=== PATIENT | female | born 1940 | race Caucasian/White ===

== ENCOUNTER → 2017-07-16 14:21 | Outpatient (CLI) | payer MEDICARE, SELFPAY | PROVIDERS: Family Provider Internal Medicine; PCP Internal Medicine; Visit Provider Physician Assistant | DX: R30.0 Dysuria (principal) | CPT/HCPCS: 87086 ==

== ENCOUNTER 2017-07-24 15:51 | Emergency (ER) | payer MEDICARE, SELFPAY ==
[2017-07-24 17:14] VITALS: BP 146/86; PULSE 101; RESP 18; TEMP 36.9; O2SAT 95; BMI 28.8
[2017-07-24 17:25] LABS: RBC Urine None Seen (0-5/HPF)
[2017-07-24 17:27] LABS: Appearance Urine UA CLEAR; Bilirubin Urine UA NEGATIVE (NEGATIVE); Glucose Urine UA TRACE g/dL (Negative); Ketones Urine UA NEGATIVE (NEGATIVE); Leukocyte Esterase Urine UA 2+ (NEGATIVE); Nitrite Urine UA POSITIVE (Negative); Occult Blood Urine UA TRACE-INTACT (Negative); Protein Urine UA TRACE (Negative)
[2017-07-24 17:43] LABS: Bacteria Urine Occasional (0-1); Color Urine UA ORANGE; Culture Indicated Urine Specimen Cultured; Squamous Epithelial Cell Urine 1-5 /HPF; Transitional Epi Cells Urine 1-5/HPF (0-5/HPF); WBC Urine 10-30/HPF (0-5/HPF)
[2017-07-24 18:26] VITALS: BP 149/77; PULSE 93; RESP 15; O2SAT 96
--- NOTE | 2017-07-24 18:31 | ED.FEMALEGU ---
HPI - Female Genitourinary General Chief complaint: Urogenital-Female Stated complaint: BLADDER PAIN Time Seen by Provider: 07/24/17 18:18 Source: patient and family Mode of arrival: ambulatory Limitations: no limitations History of Present Illness HPI Narrative: Patient presents to the emergency department today with a chief complaint of ongoing urinary symptoms including dysuria, frequency and urgency and some low right back pain over the past few days despite being treated with Macrobid as prescribed at a local walk-in. She denies fever or chills MD Complaint: dysuria and UTI Onset (ago): day(s) Location: suprapubic Female Urogenital Radiation: R Flank Severity: mild Quality: Aching and Burning Duration: constant Relieving factors: none Exacerbating factors: none Urinary symptoms: Difficulty Urinating, Dysuria, Flank Pain, Foul Smelling Urine, Frequency and Urgency Related Data Home Medications Medication Instructions Recorded Confirmed BIOTIN/CA PANTOTHENATE/FOLIC2 (B50) 1 tab PO #0 06/17/10 07/16/17 conjugated estrogens [Premarin] 0.625 mg VG #0 06/17/10 07/16/17 hydrochlorothiazide 25 mg PO QDAY #0 tab 10/08/15 07/16/17 ranitidine HCl 150 mg PO BID #0 tab 10/08/15 07/16/17 tolterodine [Detrol] 2 mg PO #90 10/08/15 07/16/17 Previous Rx's Medication Instructions Recorded atorvastatin [Lipitor] 10 mg PO QDAY #90 11/03/10 oxycodone-acetaminophen 0 tab PO Q3HP PRN #10 tab 11/06/15 cephalexin [Keflex] 500 mg PO QID 10 Days #40 cap 07/24/17 ondansetron [Zofran ODT] 4 mg PO Q6H PRN #14 tab 07/24/17 Allergies Allergy/AdvReac Type Severity Reaction Status Date / Time olmesartan Allergy Severe TONGUE Unverified 07/16/17 14:02 SWELLING polyethylene glycol Allergy Severe ABD PAIN Unverified 07/16/17 14:02 [POLYETHYLENE GLYCOL] hydrochlorothiazide Allergy Mild ANKLES Unverified 07/16/17 14:02 SWELL Penicillins Allergy Mild RASH Unverified 07/16/17 14:02 aspirin Allergy Unknown Unverified 07/16/17 14:02 dexamethasone Allergy Unknown Unverified 07/16/17 14:02 pantoprazole [From PROTONIX] Allergy Unknown Unverified 07/16/17 14:02 Sulfa (Sulfonamide Allergy Unknown Unverified 07/16/17 14:02 Antibiotics) celecoxib AdvReac Mild GI UPSET Unverified 07/16/17 14:02 ciprofloxacin AdvReac Mild NAUSEA Unverified 07/16/17 14:02 cyclobenzaprine AdvReac Mild DECREASED Unverified 07/16/17 14:02 BP hydrocodone AdvReac Mild CONSTIPATIO Unverified 07/16/17 14:02 N ibuprofen AdvReac Mild GI UPSET Unverified 07/16/17 14:02 propylene glycol AdvReac Mild GI UPSET Unverified 07/16/17 14:02 Review of Systems Review of Systems All systems reviewed & are unremarkable except as noted in HPI and below Constitutional Denies chills, Denies fever(s), Denies lethargy and Denies weakness Eyes Denies change in vision, Denies eye discharge, Denies irritation and Denies loss of vision ENT Ears, Nose, Mouth, and Throat: Denies change in voice, Denies neck pain and Denies sore throat Cardiovascular Denies chest pain, Denies irregular heart rhythm, Denies lightheadedness, Denies palpitations, Denies dyspnea, Denies dyspnea on exertion and Denies orthopnea Respiratory Denies cough, Denies dyspnea, Denies dyspnea on exertion and Denies wheezing Gastrointestinal Gastrointestinal: Denies abdominal pain, Denies change in bowel habits, Denies diarrhea, Denies nausea and Denies vomiting Genitourinary Denies hematuria, Reports dysuria, Reports pelvic pain, Reports flank pain, Reports urinary hesitancy and Reports urinary urgency Musculoskeletal Denies neck pain Integumentary/Breasts Denies pruritus, Denies erythema, Denies rash and Denies wounds Neurologic Denies confusion, Denies loss of vision and Denies weakness Psychiatric Denies anxiety, Denies confusion, Denies depression, Denies homicidal ideation and Denies suicidal ideation Endocrine Denies palpitations Hematologic/Lymphatic Denies easy bruising Allergic/Immunologic Denies wheezing PFSH Surgical History Status post laminectomy Status post surgery (11/06/15) Status post tubal ligation Social History Smoking Status: Never smoker Exam Initial Vital Signs Initial Vital Signs: Vital Signs Temperature 98.5 F 07/24/17 17:14 Pulse Rate 101 H 07/24/17 17:14 Respiratory Rate 18 07/24/17 17:14 Blood Pressure 146/86 H 07/24/17 17:14 Pulse Oximetry 95 07/24/17 17:14 Const General: cooperative, well developed and in distress Nutritional Appearance: well nourished Orientation: alert, awake, oriented x3 and not confused [facility] Head: normocephalic and atraumatic Ears: external ears normal and TM's normal bilaterally Nose: external nose normal and No nasal discharge Face and sinus: sinuses nontender, face symmetric, no sinus tenderness and No dry mucous membranes Mouth: oral mucosae normal and moist mucous membranes Teeth and gingiva: dentition normal Throat: tonsils normal and uvula midline Resp Effort & Inspection: normal respiratory effort, able to speak in complete sentences, no respiratory distress and no use of accessory muscles Auscultation: clear to auscultation bilaterally, no rales, no rhonchi and no wheezes GI Inspection: normal to inspection Palpation: soft Percussion: normal to percussion Other: mild R flank pain Skin General: no rashes or lesions noted, No jaundice and No petechiae Neuro General: alert, oriented x3, gait normal and no focal motor deficits Speech: speech normal Course Orders Ordered: Discontinued Medications Cephalexin HCl (Keflex) 500 mg PO NOW ONE Stop: 07/24/17 19:02 Last Admin: 07/24/17 19:15 Dose: 500 mg Ondansetron HCl (Zofran Odt Prepack) 1 bottle MISC SEEINSTR ONE Stop: 07/24/17 19:02 Last Admin: 07/24/17 19:16 Dose: 1 bottle Vital Signs - 8 hr 07/24/17 18:26 Pulse Rate 93 H Respiratory Rate 15 Blood Pressure [Left Arm] 149/77 H Pulse Oximetry 96 MDM - Female Genitourinary Lab Data Lab Results 07/24/17 Range/Units 17:04 Urine Color [place] Urine Appearance Clear Urine pH 7.0 (4.5-8.0) Ur Specific [place] 1.010 (1.000-1.035) Urine Protein Trace H (Negative) Urine Glucose (UA) Trace H (Negative) g/dL Urine Ketones Negative (NEGATIVE) Urine Occult Blood Trace-intact (Negative) Urine Nitrate Positive H (Negative) Urine Bilirubin Negative (NEGATIVE) Urine Urobilinogen 1.0 (0.2) E.U./dL Ur Leukocyte Esterase 2+ H (NEGATIVE) Urine RBC None seen (0-5/HPF) Urine WBC 10-30/hpf H (0-5/HPF) Ur Squamous Epith Cells 1-5 /hpf Ur Transition Epith Cell 1-5/hpf (0-5/HPF) Urine Bacteria Occasional (0-1) (None) Ur Culture Indicated? Specimen cultured Micro UA Comment Not Reportable Discharge Plan Departure Patient Disposition: Home, Self-Care Clinical Impression: Acute pyelonephritis Discharge Date/Time: 07/24/17 19:15 Interventions: ED Discharge Assessment Last Done: 07/24/17 19:30 Instructions: DI for Kidney Infection Activity Restrictions/Additional Instructions: *You have been diagnosed with [ kidney infection ] *What to do: *Take medications as directed, your prescriptions have been electronically transmitted to [facility] in [place] is at your request *Follow up with your primary care provider in 2-3 days *Return to ER if you should have any new, worsening or concerning symptoms Prescriptions: New cephalexin [Keflex] 500 mg capsule 500 mg PO QID 10 Days Qty: 40 RF: 0 ondansetron [Zofran ODT] 4 mg tablet,disintegrating 4 mg PO Q6H PRN (Reason: nausea and vomiting) Qty: 14 RF: 0 No Action BIOTIN/CA PANTOTHENATE/FOLIC2 (B50) 1 tab PO Qty: 0 RF: 0 conjugated estrogens [Premarin] 0.625 MG/GM cream 0.625 mg VG Qty: 0 RF: 0 atorvastatin [Lipitor] 10 MG tablet 10 mg PO QDAY Qty: 90 RF: 4 ranitidine HCl 150 MG tablet 150 mg PO BID Qty: 0 RF: 0 tolterodine [Detrol] 2 MG tablet 2 mg PO Qty: 90 RF: 3 hydrochlorothiazide 25 MG tablet 25 mg PO QDAY Qty: 0 RF: 0 oxycodone-acetaminophen 5 MG/325 MG tablet PO Q3HP PRNQty: 10 RF: 0
--- NOTE | 2017-07-24 18:47 | PC.NURSE ---
urinary urgency increasing over several days, reports mult previous episodes of same r/t recurrent UTI, denies pain or discomfort at time of exam, denies dizziness/weakness/fever/nausea/vomiting/diarrhea/cough/cp/soa or other sx
[2017-07-24] MEDS: cephALEXin 250 MG CAPSULE 500 MG PO (19:15)
[2017-07-24] MEDS: ONDANSETRON 4 MG ODT PREPACK 1 BOTTLE MISC (19:16)
== END 2017-07-24 19:15 | disposition home or self-care (01) ==
PROVIDERS: Emergency Medicine; Emergency Provider Emergency Medicine; Family Provider Internal Medicine; PCP Internal Medicine
DX: N10 Acute pyelonephritis (principal)
CPT/HCPCS: 81001; 87086; 99282; 99283

== ENCOUNTER → 2017-07-27 10:15 | Outpatient (CLI) | payer MEDICARE, SELFPAY ==
--- NOTE | 2017-07-27 | DI.MG.S_ITS ---
BILATERAL DIGITAL SCREENING MAMMOGRAM 3D/2D WITH CAD: 07/27/2017 CLINICAL: Routine screening. Comparison is made to exams dated: 07/01/2016 mammogram, 06/30/2015 mammogram, and 06/26/2014 mammogram - [facility]. There are scattered fibroglandular elements in both breasts. Current study was also evaluated with a Computer Aided Detection (CAD) system. No significant masses, calcifications, or other findings are seen in either breast. There has been no significant interval change. IMPRESSION: NEGATIVE There is no mammographic evidence of malignancy. A 1 year screening mammogram is recommended. This exam was interpreted at Station ID: [id number]. NOTE: For mammograms, a report in lay terms will be sent to the patient. Approximately 15% of breast malignancies will not be visualized mammographically. In the management of a palpable breast mass, a negative mammogram must not discourage biopsy of a clinically suspicious lesion. Electronically Signed By: Juan gloria/kadi:07/27/2017 12:54:19 letter sent: Normal Exam ACR BI-RADS Category 1: Negative 3341F
== END ==
PROVIDERS: Family Provider Internal Medicine; PCP Internal Medicine; Visit Provider Internal Medicine
DX: Z12.31 Encounter for screening mammogram for malignant neoplasm of breast (principal)
CPT/HCPCS: 77063; 77067

== ENCOUNTER 2017-07-29 16:53 | Emergency (ER) | payer MEDICARE, SELFPAY ==
[2017-07-29 17:08] VITALS: BP 157/84; PULSE 121; RESP 17; TEMP 36.7; O2SAT 95
--- NOTE | 2017-07-29 17:09 | ED_ITS ---
HPI - Abdominal Pain <Stephani Fonseca PA-C - Last Filed: 07/29/17 19:51> General Chief Complaint: Abdominal Pain Stated Complaint: SEVERE CONSTIPATION Time Seen by Provider: 07/29/17 17:09 Source: family and old records reviewed Mode of arrival: ambulatory Limitations: no limitations History of Present Illness HPI narrative: This 76 female with history of memory impairment comes in due to constipation today. Her is her caregiver and historian as she is unable to provide much history. states that she has had no bowel movement for at least 2 days and has been complaining of a painful, blocked sensation. He states that she usually takes 1 senna at night for chronic constipation, however he has given her senna, MiraLax, prune juice, mineral oil , Ex-Lax, and magnesium citrate over the last day or so and she has not been able to have a bowel movement. She states that she does not have abdominal pain currently. She does not think she has excess bowel gas. She has not had any nausea or vomiting since her kidney infection was treated a few days ago open (that seems to be getting better close). She has not had any new fever. She denies any chest pain, dyspnea, or other new complaints on systems review. Her states that this seems to be her only new problem, at baseline mentation. He states that she has needed to come in for enemas in the past Related Data Home Medications Medication Instructions Recorded Confirmed BIOTIN/CA PANTOTHENATE/FOLIC2 (B50) 1 tab PO #0 06/17/10 07/16/17 conjugated estrogens [Premarin] 0.625 mg VG #0 06/17/10 07/16/17 hydrochlorothiazide 25 mg PO QDAY #0 tab 10/08/15 07/16/17 ranitidine HCl 150 mg PO BID #0 tab 10/08/15 07/16/17 tolterodine [Detrol] 2 mg PO #90 10/08/15 07/16/17 Previous Rx's Medication Instructions Recorded atorvastatin [Lipitor] 10 mg PO QDAY #90 11/03/10 oxycodone-acetaminophen 0 tab PO Q3HP PRN #10 tab 11/06/15 cephalexin [Keflex] 500 mg PO QID 10 Days #40 cap 07/24/17 ondansetron [Zofran ODT] 4 mg PO Q6H PRN #14 tab 07/24/17 Allergies Allergy/AdvReac Type Severity Reaction Status Date / Time olmesartan Allergy Severe TONGUE Verified 07/29/17 17:08 SWELLING polyethylene glycol Allergy Severe ABD PAIN Verified 07/29/17 17:08 [POLYETHYLENE GLYCOL] hydrochlorothiazide Allergy Mild ANKLES Verified 07/29/17 17:08 SWELL Penicillins Allergy Mild RASH Verified 07/29/17 17:08 aspirin Allergy Unknown Verified 07/29/17 17:08 dexamethasone Allergy Unknown Verified 07/29/17 17:08 pantoprazole [From PROTONIX] Allergy Unknown Verified 07/29/17 17:08 Sulfa (Sulfonamide Allergy Unknown Verified 07/29/17 17:08 Antibiotics) celecoxib AdvReac Mild GI UPSET Verified 07/29/17 17:08 ciprofloxacin AdvReac Mild NAUSEA Verified 07/29/17 17:08 cyclobenzaprine AdvReac Mild DECREASED Verified 07/29/17 17:08 BP hydrocodone AdvReac Mild CONSTIPATIO Verified 07/29/17 17:08 N ibuprofen AdvReac Mild GI UPSET Verified 07/29/17 17:08 propylene glycol AdvReac Mild GI UPSET Verified 07/29/17 17:08 Review of Systems <Stephani Fonseca PA-C - Last Filed: 07/29/17 19:51> Review of Systems All systems reviewed & are unremarkable except as noted in HPI and below PFSH <Stephani Fonseca PA-C - Last Filed: 07/29/17 19:51> Comment: very rare ETOH Exam <GHISLAINE Frey Last Filed: 07/29/17 19:51> Initial Vital Signs Initial Vital Signs: Vital Signs Temperature 98.0 F 07/29/17 17:08 Pulse Rate 121 H 07/29/17 17:08 Respiratory Rate 17 07/29/17 17:08 Blood Pressure 157/84 H 07/29/17 17:08 Pulse Oximetry 95 07/29/17 17:08 GENERAL APPEARANCE: Patient sitting comfortably, in no distress. HEENT: PERRL, EOMI, no scleral icterus NECK: Supple LUNGS: Clear to auscultation bilaterally. HEART: Rate and rhythm regular, rapid, 110, normal S1 and S2, no S3 or S4. ABDOMEN: Soft, protuberant, nontender, bowel sounds present x 4 quadrants, no masses palpable, no hepatosplenomegaly palpable. EXTREMITIES: No edema, no cyanosis DERMATOLOGIC: No jaundice or exanthem NEUROLOGIC: Alert, disoriented, with normal speech and coordination <Sander Oliva DO - Last Filed: 07/30/17 00:52> Initial Vital Signs Initial Vital Signs: Vital Signs Temperature 98.0 F 07/29/17 17:08 Pulse Rate 121 H 07/29/17 17:08 Respiratory Rate 17 07/29/17 17:08 Blood Pressure 157/84 H 07/29/17 17:08 Pulse Oximetry 95 07/29/17 17:08 Course <Stephani Fonseca PA-C - Last Filed: 07/29/17 19:51> Hospital Course: Patient had multiple bowel movements just prior to leaving the hospital and was feeling improved. Orders Ordered: ED Orders 07/29/17 17:24 XR acute abdomen series Stat Vital Signs - 8 hr 07/29/17 17:08 Temperature 98.0 F Pulse Rate 121 H Respiratory Rate 17 Blood Pressure 157/84 H Pulse Oximetry 95 <Sander Oliva DO - Last Filed: 07/30/17 00:52> Orders Ordered: ED Orders 07/29/17 17:24 XR acute abdomen series Stat Vital Signs - 8 hr 07/29/17 17:08 Temperature 98.0 F Pulse Rate 121 H Respiratory Rate 17 Blood Pressure 157/84 H Pulse Oximetry 95 Discharge Plan Departure Patient Disposition: Home, Self-Care Clinical Impression: Constipation Discharge Date/Time: 07/29/17 19:46 Interventions: ED Discharge Assessment Last Done: 07/29/17 19:32 Instructions: DI for Constipation Activity Restrictions/Additional Instructions: You should return as we talked about if you have acutely worsening symptoms, or new symptoms such as vomiting. Otherwise, it is reasonable for you to continue to treat this at home since you did have some bowel movement today while you were here. Your x-ray does not show a bowel blockage. Try mixing a dose of Maalox and MiraLax open (follow package instructions close) with 3-4 oz each of apple juice and prune juice and drink this. It will likely help with the constipation. You should continue the Maalox daily since you have struggled with chronic constipation. You should follow up with your PCP if your bowel movements are not back to normal on this regimen. Prescriptions: No Action BIOTIN/CA PANTOTHENATE/FOLIC2 (B50) 1 tab PO Qty: 0 RF: 0 conjugated estrogens [Premarin] 0.625 MG/GM cream 0.625 mg VG Qty: 0 RF: 0 atorvastatin [Lipitor] 10 MG tablet 10 mg PO QDAY Qty: 90 RF: 4 ranitidine HCl 150 MG tablet 150 mg PO BID Qty: 0 RF: 0 tolterodine [Detrol] 2 MG tablet 2 mg PO Qty: 90 RF: 3 hydrochlorothiazide 25 MG tablet 25 mg PO QDAY Qty: 0 RF: 0 oxycodone-acetaminophen 5 MG/325 MG tablet PO Q3HP PRNQty: 10 RF: 0 cephalexin [Keflex] 500 mg capsule 500 mg PO QID 10 Days Qty: 40 RF: 0 ondansetron [Zofran ODT] 4 mg tablet,disintegrating 4 mg PO Q6H PRN (Reason: nausea and vomiting) Qty: 14 RF: 0 Referrals: Sterling Smith MD [Primary Care Provider] - <Sander Oliva DO - Last Filed: 07/30/17 00:52> Cosign ED Attending Pat Attestation: I was immediately available in the department for consultation. Documentation has been reviewed. I agree with assessment and plan.
--- NOTE | 2017-07-29 17:24 | DI.RAD.S_ITS ---
PROCEDURE: XR ACUTE ABDOMEN SERIES INDICATIONS: constipation TECHNIQUE: One view chest and two views of the abdomen were acquired. COMPARISON: None. FINDINGS: Surgical changes and devices: None. Chest: Lungs are clear. Heart size is normal. No pleural effusions. No pneumoperitoneum. Abdomen: Nonobstructive bowel gas pattern. There is a very large amount stool projecting throughout the colon particularly in the sigmoid colon and rectum. No abnormal calcifications. Bones: No suspicious bony lesions. IMPRESSION: Large amount of stool projects throughout the colon particularly the sigmoid colon and rectum. Findings may represent chronic constipation and/or fecal impaction. Dictated by: Juan Reyes M.D. on 07/29/2017 at 18:37 Approved by: Juan Reyes M.D. on 07/29/2017 at 18:39
--- NOTE | 2017-07-29 18:14 | PC.NURSE ---
pt prefers to sit on the chair, assisted from stretcher to chair, warm blanket provided. spouse at bs. awaiting for xray result/
== END 2017-07-29 19:46 | disposition home or self-care (01) ==
PROVIDERS: Emergency Provider Internal Medicine; Family Provider Internal Medicine; PCP Internal Medicine
DX: K59.00 Constipation, unspecified (principal)
CPT/HCPCS: 74022; 99283

== ENCOUNTER 2017-11-21 20:02 | Emergency (ER) | payer MEDICARE, SELFPAY ==
[2017-11-21 20:06] VITALS: BP 160/88; PULSE 92; RESP 16; TEMP 36.4; O2SAT 94; BMI 29.0
--- NOTE | 2017-11-21 20:47 | ED_ITS ---
HPI - Female Genitourinary <Stephani Fonseca PA-C - Last Filed: 11/21/17 22:32> General Chief complaint: Urogenital-Female Stated complaint: THINKS BLADDER INFECTION Time Seen by Provider: 11/21/17 20:45 Source: patient and family Mode of arrival: ambulatory Limitations: other (dementia) History of Present Illness HPI Narrative: This 77-year-old female comes in today due to concern for UTI, which she has had in the past frequently. She does have incontinence. She complains of urinary frequency and bladder pain and pressure with a full bladder. She cannot remember whether she has dysuria, does not think frequency. Her has given her Pyridium 100 mg twice today which has been helpful. She denies fever, chills, or sweats at home. She denies any vomiting, has had slight nausea. She denies any new flank or back pain. She has been eating and drinking normally today. She denies chest pain, dyspnea, or any other new symptoms on systems review. Symptoms started today. Related Data Home Medications Medication Instructions Recorded Confirmed BIOTIN/CA PANTOTHENATE/FOLIC2 (B50) 1 tab PO #0 06/17/10 09/08/17 hydrochlorothiazide 25 mg PO QDAY #0 tab 10/08/15 09/08/17 ranitidine HCl 150 mg PO BID #0 tab 10/08/15 09/08/17 tolterodine [Detrol] 2 mg PO #90 10/08/15 09/08/17 losartan 25 mg tablet 25 mg PO DAILY 09/08/17 09/08/17 Previous Rx's Medication Instructions Recorded atorvastatin [Lipitor] 10 mg PO QDAY #90 11/03/10 ondansetron [Zofran ODT] 4 mg PO Q6H PRN #14 tab 07/24/17 nitrofurantoin monohyd/m-cryst 100 mg PO Q12H 5 Days #10 cap 11/21/17 [Macrobid] Allergies Allergy/AdvReac Type Severity Reaction Status Date / Time olmesartan Allergy Severe TONGUE Verified 11/21/17 20:06 SWELLING polyethylene glycol Allergy Severe ABD PAIN Verified 11/21/17 20:06 [POLYETHYLENE GLYCOL] hydrochlorothiazide Allergy Mild ANKLES Verified 11/21/17 20:06 SWELL Penicillins Allergy Mild RASH Verified 11/21/17 20:06 aspirin Allergy Unknown Verified 11/21/17 20:06 dexamethasone Allergy Unknown Verified 11/21/17 20:06 pantoprazole [From PROTONIX] Allergy Unknown Verified 11/21/17 20:06 Sulfa (Sulfonamide Allergy Unknown Verified 11/21/17 20:06 Antibiotics) celecoxib AdvReac Mild GI UPSET Verified 11/21/17 20:06 ciprofloxacin AdvReac Mild NAUSEA Verified 11/21/17 20:06 cyclobenzaprine AdvReac Mild DECREASED Verified 11/21/17 20:06 BP hydrocodone AdvReac Mild CONSTIPATIO Verified 11/21/17 20:06 N ibuprofen AdvReac Mild GI UPSET Verified 11/21/17 20:06 propylene glycol AdvReac Mild GI UPSET Verified 11/21/17 20:06 Review of Systems <GHISLAINE Frey Last Filed: 11/21/17 22:32> Review of Systems All systems reviewed & are unremarkable except as noted in HPI and below Exam <GHISLAINE Frey Last Filed: 11/21/17 22:32> Narrative Exam Narrative: GENERAL APPEARANCE: Patient sitting comfortably, in no distress. LUNGS: Clear to auscultation bilaterally. HEART: Rate and rhythm regular without murmur, normal S1 and S2, no S3 or S4. ABDOMEN: Soft, NT, ND, +BS x 4 quadrants, no CVAT. EXTREMITIES: No calf tenderness or cyanosis NEUROLOGIC: Patient is alert, poor historian, normal speech and coordination Initial Vital Signs Initial Vital Signs: Vital Signs Temperature 97.5 F L 11/21/17 20:06 Pulse Rate 92 H 11/21/17 20:06 Respiratory Rate 16 11/21/17 20:06 Blood Pressure 160/88 H 11/21/17 20:06 Pulse Oximetry 94 11/21/17 20:06 <Sander Oliva DO - Last Filed: 11/22/17 04:24> Initial Vital Signs Initial Vital Signs: Vital Signs Temperature 97.5 F L 11/21/17 20:06 Pulse Rate 92 H 11/21/17 20:06 Respiratory Rate 16 11/21/17 20:06 Blood Pressure 160/88 H 11/21/17 20:06 Pulse Oximetry 94 11/21/17 20:06 Course <GHISLAINE Frey Last Filed: 11/21/17 22:32> Orders Ordered: ED Orders 11/21/17 20:13 Urinalysis Sreen (Dip Only) Stat Urine Culture Stat Urine Microscopic Stat Discontinued Medications Nitrofurantoin Macrocrystals (Macrobid 100 Mg Capsule) 100 mg PO NOW ONE Stop: 11/21/17 21:04 Last Admin: 11/21/17 21:13 Dose: 100 mg Vital Signs - 8 hr 11/21/17 21:20 Temperature 97.5 F L Pulse Rate 92 H Respiratory Rate 16 Blood Pressure 160/88 H Pulse Oximetry 94 <DO Angie Martinez Last Filed: 11/22/17 04:24> Orders Ordered: ED Orders 11/21/17 20:13 Urinalysis Sreen (Dip Only) Stat Urine Culture Stat Urine Microscopic Stat Discontinued Medications Nitrofurantoin Macrocrystals (Macrobid 100 Mg Capsule) 100 mg PO NOW ONE Stop: 11/21/17 21:04 Last Admin: 11/21/17 21:13 Dose: 100 mg Vital Signs - 8 hr 11/21/17 21:20 Temperature 97.5 F L Pulse Rate 92 H Respiratory Rate 16 Blood Pressure 160/88 H Pulse Oximetry 94 MDM - Female Genitourinary <Stephani Fonseca PA-C - Last Filed: 11/21/17 22:32> Lab Data Lab Results 11/21/17 Range/Units 20:13 Urine Color Yellow Urine Appearance Clear Urine pH 8.0 (4.5-8.0) Ur Specific [place] 1.015 (1.000-1.035) Urine Protein 1+ H (Negative) Urine Glucose (UA) Trace (Normal) g/dL Urine Ketones Negative (NEGATIVE) Urine Occult Blood 3+ H (Negative) Urine Nitrate Positive H (Negative) Urine Bilirubin Negative (NEGATIVE) Urine Urobilinogen 1.0 (0.2) E.U./dL Ur Leukocyte Esterase 2+ H (NEGATIVE) Urine RBC 1-5/hpf (0-5/HPF) Urine WBC 30-100/hpf H (0-5/HPF) Ur Squamous Epith Cells 1-5 /hpf Urine Bacteria Many (>30) H (None) Ur Culture Indicated? Specimen cultured Micro UA Comment Not Reportable <DO Angie Martinez Last Filed: 09/26/18 04:24> Lab Data Lab Results 11/21/17 Range/Units 20:13 Urine Color Yellow Urine Appearance Clear Urine pH 8.0 (4.5-8.0) Ur Specific [place] 1.015 (1.000-1.035) Urine Protein 1+ H (Negative) Urine Glucose (UA) Trace (Normal) g/dL Urine Ketones Negative (NEGATIVE) Urine Occult Blood 3+ H (Negative) Urine Nitrate Positive H (Negative) Urine Bilirubin Negative (NEGATIVE) Urine Urobilinogen 1.0 (0.2) E.U./dL Ur Leukocyte Esterase 2+ H (NEGATIVE) Urine RBC 1-5/hpf (0-5/HPF) Urine WBC 30-100/hpf H (0-5/HPF) Ur Squamous Epith Cells 1-5 /hpf Urine Bacteria Many (>30) H (None) Ur Culture Indicated? Specimen cultured Micro UA Comment Not Reportable Discharge Plan Departure Patient Disposition: Home Clinical Impression: Urinary tract infection Discharge Date/Time: 11/21/17 21:53 Interventions: ED Discharge Assessment Last Done: 11/21/17 21:49 Instructions: DI for Urinary Tract Infection (UTI) Activity Restrictions/Additional Instructions: Return as we discussed if you have acutely worsening symptoms or new symptoms such as fever, back pain, or vomiting. Otherwise, it will take couple of days for your urine culture to be returned. You should follow up with your PCP if you are not better over the next couple of days after starting the antibiotic. Prescriptions: New nitrofurantoin monohyd/m-cryst [Macrobid] 100 mg capsule 100 mg PO Q12H 5 Days Qty: 10 RF: 0 No Action losartan 25 mg tablet 25 mg PO DAILY RF: 0 BIOTIN/CA PANTOTHENATE/FOLIC2 (B50) 1 tab PO Qty: 0 RF: 0 atorvastatin [Lipitor] 10 MG tablet 10 mg PO QDAY Qty: 90 RF: 4 ranitidine HCl 150 MG tablet 150 mg PO BID Qty: 0 RF: 0 tolterodine [Detrol] 2 MG tablet 2 mg PO Qty: 90 RF: 3 hydrochlorothiazide 25 MG tablet 25 mg PO QDAY Qty: 0 RF: 0 ondansetron [Zofran ODT] 4 mg tablet,disintegrating 4 mg PO Q6H PRN (Reason: nausea and vomiting) Qty: 14 RF: 0 Referrals: Chin Bales MD [Physician] - <Sander Oliva DO - Last Filed: 11/22/17 04:24> Cosign ED Attending Pat Attestation: I was immediately available in the department for consultation. Documentation has been reviewed. I agree with assessment and plan.
[2017-11-21 20:53] LABS: Appearance Urine UA CLEAR; Bilirubin Urine UA NEGATIVE (NEGATIVE); Color Urine UA YELLOW; Glucose Urine UA TRACE g/dL (Normal); Ketones Urine UA NEGATIVE (NEGATIVE); Leukocyte Esterase Urine UA 2+ (NEGATIVE); Nitrite Urine UA POSITIVE (Negative); Occult Blood Urine UA 3+ (Negative); Protein Urine UA 1+ (Negative); Specific Gravity Urine UA 1.015 (1.000-1.035)
[2017-11-21 21:07] LABS: Bacteria Urine Many (>30); RBC Urine 1-5/HPF (0-5/HPF); Squamous Epithelial Cell Urine 1-5 /HPF; WBC Urine 30-100/HPF (0-5/HPF)
[2017-11-21 21:08] LABS: Culture Indicated Urine Specimen Cultured
[2017-11-21] MEDS: NITROFURANTOIN ER 100 MG CAPSULE PO (21:13)
[2017-11-21 21:20] VITALS: BP 160/88; PULSE 92; RESP 16; TEMP 36.4; O2SAT 94; BMI 29.0
== END 2017-11-21 21:53 | disposition home or self-care (01) ==
LOC: ED 21:51
PROVIDERS: Emergency Provider Internal Medicine; Family Provider Internal Medicine; PCP Internal Medicine
DX: N39.0 Urinary tract infection, site not specified (principal)
CPT/HCPCS: 81003; 81015; 87077; 87086; 99282; 99283

== ENCOUNTER → 2018-05-16 19:55 | Outpatient (CLI) | payer MEDICARE, SELFPAY | PROVIDERS: Family Provider Internal Medicine; PCP Internal Medicine; Visit Provider Physician Assistant | DX: N39.0 Urinary tract infection, site not specified (principal) | CPT/HCPCS: 87086 ==

== ENCOUNTER → 2018-11-29 08:59 | Outpatient (CLI) | payer MEDICARE, SELFPAY ==
--- NOTE | 2018-11-29 | DI.MG.S_ITS ---
BILATERAL DIGITAL SCREENING MAMMOGRAM 3D/2D WITH CAD: 11/29/2018 CLINICAL: Routine screening. Comparison is made to exams dated: 07/27/2017 mammogram, 07/01/2016 mammogram, and 06/30/2015 mammogram - [facility]. There are scattered fibroglandular elements in both breasts. Current study was also evaluated with a Computer Aided Detection (CAD) system. No significant masses, calcifications, or other findings are seen in either breast. There has been no significant interval change. IMPRESSION: NEGATIVE There is no mammographic evidence of malignancy. A 1 year screening mammogram is recommended. This exam was interpreted at Station ID: [id number]. NOTE: For mammograms, a report in lay terms will be sent to the patient. Approximately 15% of breast malignancies will not be visualized mammographically. In the management of a palpable breast mass, a negative mammogram must not discourage biopsy of a clinically suspicious lesion. Electronically Signed By: Justice simon/kadi:11/29/2018 14:08:09 letter sent: Normal Exam ACR BI-RADS Category 1: Negative [id number]
== END ==
PROVIDERS: PCP Internal Medicine; Visit Provider Internal Medicine
DX: Z12.31 Encounter for screening mammogram for malignant neoplasm of breast (principal)
CPT/HCPCS: 77063; 77067

== ENCOUNTER 2019-03-05 15:58 | Emergency (ER) | payer MEDICARE, SELFPAY ==
[2019-03-05 16:01] VITALS: BP 149/102; PULSE 97; RESP 18; TEMP 36.9; O2SAT 95
--- NOTE | 2019-03-05 16:11 | DI.RAD.S_ITS ---
PROCEDURE: XR WRIST RT MIN 3V INDICATIONS: fall, right wrist pain. TECHNIQUE: 4 views of the wrist were acquired. COMPARISON: None. FINDINGS: Bones: No fractures or dislocations. No suspicious bony lesions. Severe joint space narrowing and periarticular osteophyte formation at the radiocarpal joint. The scaphoid and lunate bone appear chronically deformed. Scaphoid view: Limited evaluation, grossly unremarkable Soft tissues: No suspicious soft tissue calcifications. IMPRESSION: 1. 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 2. No definite acute fracture. No osseous lesion. If symptoms and/or clinical suspicion for pathology persist, further assessment with repeat, or advanced imaging (e.g., CT, MRI, or bone scan) may be helpful for further assessment. Dictated by: Sailaja Cobb M.D. on 03/05/2019 at 17:10 Approved by: Sailaja Cobb M.D. on 03/05/2019 at 17:11
--- NOTE | 2019-03-05 16:12 | DI.RAD.S_ITS ---
PROCEDURE: XR RIBS RT MIN 3V W CXR 1V INDICATIONS: fall, pain posterior right ribs / chest wall. TECHNIQUE: 2 views of the right ribs were acquired, along with a single view chest. COMPARISON: [facility], , CHEST 1 VIEW, 04/27/2015, 6:40. FINDINGS: Surgical changes and devices: None. Bones and chest wall: No fractures or dislocations. No suspicious bony lesions. Overlying soft tissues appear unremarkable. Lungs and pleura: No pleural effusions or pneumothorax. Lungs appear clear. Mediastinum: Mediastinal contours appear normal. Heart size is normal. IMPRESSION: No acute fracture. No osseous lesion. If symptoms and/or clinical suspicion for pathology persist, further assessment with repeat, or advanced imaging (e.g., CT or bone scan) may be helpful for further assessment. Dictated by: Sailaja Cobb M.D. on 03/05/2019 at 17:09 Approved by: Sailaja Cobb M.D. on 03/05/2019 at 17:10
--- NOTE | 2019-03-05 16:44 | ED.FALL ---
HPI - Fall <Caitlyn Odonnell MD - Last Filed: 03/05/19 18:53> General Chief Complaint: Fall Stated Complaint: GLF Time Seen by Provider: 03/05/19 16:03 Source: family and EMS Mode of arrival: EMS Limitations: no limitations History of Present Illness HPI Narrative: Patient comes emergency department for chief complaint of fall. Patient has a history of Alzheimer's disease, and patient's states that she has become increasingly off balance with her walking and standing over the last especially couple of weeks. He states that she was starting to have problems about a year ago but it has greatly escalated in recent weeks. Patient apparently lost her balance while ambulating with her walker at home and fell through the closet door. Patient's states he does not think the patient hit her head, but she did knock the closet door off its track. The patient complains of some mild right wrist and rib pain. She has no other complaints of pain. She denies shortness of breath or nausea. She does not feel dizzy she states. No other complaints at this time. The states that he has not yet spoken with Dr. Bales, the patient's primary care physician, about assisted living, though he thinks that perhaps he will need to do this soon. He does note that the patient has a walker at home which she uses for all ambulation, and has for the last 10 years since having a back surgery that left her with right foot drop. She permanently wears a brace on this side for this reason. She also has a wheelchair, which the patient's states they use to get around if they need to leave the house, and which they also sometimes use at home. However, because the wheelchair does not easily maneuver in some parts of the house, the patient uses her walker for some of the getting around home. Related Data Home Medications Medication Instructions Recorded Confirmed hydrochlorothiazide 12.5 mg PO DAILY #0 tab 10/08/15 03/05/19 omeprazole 20 mg capsule,delayed 20 mg PO BID 02/21/18 03/05/19 release phenazopyridine 100 mg tablet 100 mg PO PRN PRN 02/21/18 03/05/19 Respironics Dreamstation BIPAP #1 ea 03/22/18 03/05/19 AutoSV acetaminophen 325 mg PO PRN PRN 03/05/19 03/05/19 atorvastatin [Lipitor] 10 mg PO BEDTIME 03/05/19 03/05/19 cholecalciferol (vitamin D3) 2,000 unit PO DAILY 03/05/19 03/05/19 [Vitamin D3] donepezil 5 mg PO DAILY 03/05/19 03/05/19 ginkgo biloba 120 mg PO DAILY 03/05/19 03/05/19 losartan 50 mg PO DAILY 03/05/19 03/05/19 lutein extract-zeaxanthin ext 1 cap PO QAM 03/05/19 03/05/19 memantine 20 mg PO DAILY 03/05/19 03/05/19 polyethylene glycol 3350 [Miralax] 17 g PO QPM 03/05/19 03/05/19 potassium chloride 10 meq PO DAILY 03/05/19 03/05/19 sennosides-docusate sodium 1 tab-cap PO BEDTIME 03/05/19 03/05/19 [Senna-S] sertraline 50 mg PO DAILY 03/05/19 03/05/19 tolterodine 2 mg PO DAILY 03/05/19 03/05/19 Allergies Allergy/AdvReac Type Severity Reaction Status Date / Time olmesartan Allergy Severe TONGUE Verified 05/16/18 19:53 SWELLING polyethylene glycol Allergy Severe ABD PAIN Verified 05/16/18 19:53 [POLYETHYLENE GLYCOL] hydrochlorothiazide Allergy Mild ANKLES Verified 05/16/18 19:53 SWELL Penicillins Allergy Mild RASH Verified 05/16/18 19:53 aspirin Allergy Unknown Verified 05/16/18 19:53 dexamethasone Allergy Unknown Verified 05/16/18 19:53 pantoprazole [From PROTONIX] Allergy Unknown Verified 05/16/18 19:53 Sulfa (Sulfonamide Allergy Unknown Verified 05/16/18 19:53 Antibiotics) celecoxib AdvReac Mild GI UPSET Verified 05/16/18 19:53 ciprofloxacin AdvReac Mild NAUSEA Verified 05/16/18 19:53 cyclobenzaprine AdvReac Mild DECREASED Verified 05/16/18 19:53 BP hydrocodone AdvReac Mild CONSTIPATIO Verified 05/16/18 19:53 N ibuprofen AdvReac Mild GI UPSET Verified 05/16/18 19:53 propylene glycol AdvReac Mild GI UPSET Verified 05/16/18 19:53 Review of Systems <Caitlyn Odonnell MD - Last Filed: 03/05/19 18:53> Constitutional Constitutional: Denies chills, Denies fatigue, Denies fever(s), Denies frequent falls, Denies lethargy and Denies weakness Eyes Eyes: Denies change in vision, Denies eye discharge, Denies irritation and Denies loss of vision ENT Ears, Nose, Mouth, and Throat: Denies change in voice, Denies dizziness, Denies neck pain, Denies sore throat and Denies throat swelling Cardiovascular Cardiovascular: Denies chest pain, Denies irregular heart rhythm, Denies lightheadedness, Denies palpitations, Denies dyspnea, Denies dyspnea on exertion and Denies orthopnea Comments: Right lateral rib pain Respiratory Respiratory: Denies cough, Denies dyspnea, Denies dyspnea on exertion and Denies wheezing Gastrointestinal Gastrointestinal: Denies abdominal pain, Denies change in bowel habits, Denies diarrhea, Denies nausea and Denies vomiting Genitourinary Genitourinary: Denies hematuria, Denies flank pain, Denies urinary incontinence and Denies urinary urgency Musculoskeletal Musculoskeletal: Denies back pain, Denies muscle weakness, Denies neck pain, Denies numbness and Denies tingling Comments: Wrist and rib pain Integumentary/Breasts Skin/Breast: Denies pruritus, Denies erythema, Denies rash and Denies wounds Neurologic Neurologic: Denies behavioral changes, Denies confusion, Denies dizziness, Denies frequent falls, Denies loss of vision, Denies numbness, Denies tingling and Denies weakness Psychiatric Psychiatric: Denies anxiety, Denies behavioral changes, Denies confusion, Denies depression, Denies homicidal ideation and Denies suicidal ideation Endocrine Endocrine: Denies fatigue, Denies flushing and Denies palpitations Hematologic/Lymphatic Hematologic/Lymphatic: Denies easy bruising Allergic/Immunologic Allergic/Immunologic: Denies urticaria, Denies throat swelling and Denies wheezing Patient History <Caitlyn Odonnell MD - Last Filed: 03/05/19 18:53> Medical History Chronic constipation (Chronic) Depression (Chronic) Excessive daytime sleepiness (Chronic) GERD (gastroesophageal reflux disease) (Acute) HTN (hypertension) (Chronic) Long-term memory impairment (Chronic) Neuropathy (Chronic) Obstructive sleep apnea of adult (Chronic ~1999) Primary insomnia (Chronic) Snoring (Chronic) Surgical History Status post laminectomy (Acute) Status post surgery (11/06/15) Status post tubal ligation Social History marital status: details: to Gigi household members: spouse caregiver/support person: Yes seatbelt use: always water heater temp set < 120 deg: Yes working smoke detector in home: Yes carbon monox detector in home: Yes Smoking Status: Never smoker alcohol intake: current substance use type: does not use Smoking Status: Never smoker alcohol intake frequency: holidays/special occasions only Substance Use Type: does not use Exam <Caitlyn Odonnell MD - Last Filed: 03/05/19 18:53> Initial Vital Signs Initial Vital Signs: Vital Signs Temperature 98.4 F 03/05/19 16:01 Pulse Rate 97 H 03/05/19 16:01 Respiratory Rate 18 03/05/19 16:01 Blood Pressure 149/102 H 03/05/19 16:01 Pulse Oximetry 95 03/05/19 16:01 Const General: cooperative and well developed Nutritional Appearance: well nourished Orientation: alert, awake and not confused [facility] Head: normocephalic and atraumatic Ears: external ears normal Nose: external nose normal and No nasal discharge Face and sinus: face symmetric and No dry mucous membranes Mouth: oral mucosae normal and moist mucous membranes Teeth and gingiva: dentition normal Eyes General: appearance normal, both eyes and all related structures Eyelids: eyelids normal Conjunctivae: conjunctivae normal Sclera: sclerae normal Pupils: PERRL EOM: EOM intact bilaterally Neck Neck: normal visual inspection, trachea midline, No lymphadenopathy, No midline deformity and No JVD Lymphatic: No lymphedema Chest Chest: normal inspection of the chest Other: No focal rib tenderness Resp Effort & Inspection: normal respiratory effort, able to speak in complete sentences, no respiratory distress and no use of accessory muscles Auscultation: clear to auscultation bilaterally, no rales, no rhonchi and no wheezes Cardio Rate: regular rate Rhythm: regular rhythm Heart Sounds: no click, no gallops, no murmurs and no rubs Pulses: normal peripheral pulses GI Inspection: non-distended Palpation: soft, no hepatosplenomegaly, No guarding, No pulsatile mass and No tender Auscultation: normal bowel sounds Back/Spine/Pelvis Back: No CVA tenderness Cervical Spine: cervical ROM normal and No pain with cervical ROM Thoracic/Lumbar Spine: thoracic and lumbar spine normal to inspection Skin General: no rashes or lesions noted, No jaundice and No petechiae Neuro General: alert, awake and no focal motor deficits Speech: speech normal Other: Patient ambulates slowly with a walker to and from the bathroom. Extrem General: full ROM, no clubbing, cyanosis or edema, no pedal edema and no calf tenderness Other: Patient has no swelling of her right wrist, but does have a deformity of the radial aspect. It is uncertain whether this is chronic or acute. The area is nontender. No other focal abnormalities. Psych Appearance: well kempt Mental Status: mental status grossly normal Attitude: cooperative Thought Content: normal and suicidality Judgment: judgment good <Martinez Degroot DO - Last Filed: 03/05/19 19:34> Initial Vital Signs Initial Vital Signs: Vital Signs Temperature 98.4 F 03/05/19 16:01 Pulse Rate 97 H 03/05/19 16:01 Respiratory Rate 18 03/05/19 16:01 Blood Pressure 149/102 H 03/05/19 16:01 Pulse Oximetry 95 03/05/19 16:01 Course <Caitlyn Odonnell MD - Last Filed: 03/05/19 18:53> Course Course Narrative: Patient was worked up in the emergency department with CT scan of the head and with x-rays of the right wrist and ribs. These all were found to be nonacute. Laboratory studies were unremarkable. Urinalysis is pending at the time this dictation. I did request social work to come and speak with the to try to determine a plan of care. The patient did not appear to meet any admission criteria, and was actually fairly well-appearing in the emergency department. The progressive difficulties with ambulation had been coming on for some time, and there is no evidence at this point that there is an acute condition to cause worsening. As such, this social welfare research worker did state that the patient would not meet the 3 night minimum inpatient stay criteria for direct placement to an assisted living facility from the hospital. bindery worker did arrange for home health to be set up for the patient, and at this time, the patient signed out to Dr. Gigi Degroot at change of shift, pending urinalysis and final disposition. Orders Ordered: ED Orders 03/05/19 16:11 XR wrist RT min 3V Stat 03/05/19 16:12 XR ribs RT min 3V w CXR1V Stat 03/05/19 16:43 CT head/brain wo con Stat 03/05/19 16:44 EKG-12 Lead Stat 03/05/19 16:52 Consult to [facility] - Plow Holder Stat 03/05/19 17:17 Complete Blood Count AUTO DIFF Stat Comprehensive Metabolic Panel Stat Lipase Stat Partial Thromboplastin Time Stat Prothrombin Time INR Stat 03/05/19 18:50 Urine Culture Stat Urine Microscopic Stat Vital Signs Vital signs: Vital Signs - 8 hr 03/05/19 16:01 03/05/19 17:30 03/05/19 18:00 Temperature 98.4 F Pulse Rate 97 H 78 72 Respiratory Rate 18 18 14 Blood Pressure 149/102 H Blood Pressure [Left Arm] 166/87 H 160/80 H Pulse Oximetry 95 96 98 03/05/19 19:00 Temperature Pulse Rate 78 Respiratory Rate 16 Blood Pressure Blood Pressure [Left Arm] 149/80 H Pulse Oximetry 98 <Martinez Degroot, - Last Filed: 03/05/19 19:34> Orders Ordered: ED Orders 03/05/19 16:11 XR wrist RT min 3V Stat 03/05/19 16:12 XR ribs RT min 3V w CXR1V Stat 03/05/19 16:43 CT head/brain wo con Stat 03/05/19 16:44 EKG-12 Lead Stat 03/05/19 16:52 Consult to [facility] Plow Holder Stat 03/05/19 17:17 Complete Blood Count AUTO DIFF Stat Comprehensive Metabolic Panel Stat Lipase Stat Partial Thromboplastin Time Stat Prothrombin Time INR Stat 03/05/19 18:50 Urine Culture Stat Urine Microscopic Stat Vital Signs Vital signs: Vital Signs - 8 hr 03/05/19 16:01 03/05/19 17:30 03/05/19 18:00 Temperature 98.4 F Pulse Rate 97 H 78 72 Respiratory Rate 18 18 14 Blood Pressure 149/102 H Blood Pressure [Left Arm] 166/87 H 160/80 H Pulse Oximetry 95 96 98 03/05/19 19:00 Temperature Pulse Rate 78 Respiratory Rate 16 Blood Pressure Blood Pressure [Left Arm] 149/80 H Pulse Oximetry 98 MDM - Fall <Caitlyn Odonnell MD - Last Filed: 03/05/19 18:53> Medical Records Attestation: I reviewed the patient's medical records. Lab Data Attestation: I reviewed the patient's lab results. Result diagrams: 03/05/19 17:17 03/05/19 17:17 Labs: Lab Results 03/05/19 03/05/19 03/05/19 Range/Units 17:17 17:17 17:17 WBC 8.8 (4.5-11.0) X10^3/uL RBC 4.36 (4.0-5.2) X10^6/uL Hgb 13.5 (12.0-16.0) g/dL Hct 39.7 (36-46) % MCV 90.9 (80-100) fL MCH 31.0 (26-34) PG MCHC 34.1 (30-36) % RDW 13.7 (11.6-14.8) % Plt Count 226 (150-400) X10^3/uL Neut % (Auto) 72.5 (50-75) % Lymph % (Auto) 19.9 L (25-40) % [place] % (Auto) 5.3 (3-14) % Eos % (Auto) 1.6 L (2-4) % Baso % (Auto) 0.7 (0-2) % Neut # (Auto) 6400 (2696-3360) /uL Lymph # (Auto) 1700 (1689-2699) /uL [place] # (Auto) 500 (0-900) /uL Eos # (Auto) 100 (0-450) /uL Baso # (Auto) 100 (0-100) /uL PT 11.0 (10.1-12.7) SECONDS INR 1.0 (0.9-1.3) APTT 32 (26.4-36.2) SECONDS Sodium 136 L (137-145) mmol/L Potassium 3.8 (3.4-5.1) mmol/L Chloride 97 L (98-107) mmol/L Carbon Dioxide 30 (22-32) mmol/L BUN 15 (7-17) mg/dL Creatinine 0.80 (0.52-1.04) mg/dL Estimated GFR > 60.0 (>60) mL/min BUN/Creatinine Ratio 18.8 (6-22) Glucose 122 H (80-110) mg/dL Calcium 9.3 (8.4-10.2) mg/dL Total Bilirubin 0.3 (0.2-1.3) mg/dL AST 19 (14-36) IU/L ALT 16 (<35) IU/L Alkaline Phosphatase 86 (38-126) U/L Total Protein 6.5 (6.3-8.2) g/dL Albumin 4.1 (3.5-5.0) g/dL Globulin 2.4 (1.7-4.1) g/dL Albumin/Globulin Ratio 1.7 (1.0-2.8) Lipase 55 (23-300) U/L Urine RBC (0-5/HPF) Urine WBC (0-5/HPF) Ur Squamous Epith Cells (0-5/HPF) Ur Transition Epith Cell (0-5/HPF) Urine Bacteria (None) Ur Culture Indicated? Micro UA Comment 03/05/19 Range/Units 18:50 WBC (4.5-11.0) X10^3/uL RBC (4.0-5.2) X10^6/uL Hgb (12.0-16.0) g/dL Hct (36-46) % MCV (80-100) fL MCH (26-34) PG MCHC (30-36) % RDW (11.6-14.8) % Plt Count (150-400) X10^3/uL Neut % (Auto) (50-75) % Lymph % (Auto) (25-40) % [place] % (Auto) (3-14) % Eos % (Auto) (2-4) % Baso % (Auto) (0-2) % Neut # (Auto) (8392-9981) /uL Lymph # (Auto) (0663-3607) /uL [place] # (Auto) (0-900) /uL Eos # (Auto) (0-450) /uL Baso # (Auto) (0-100) /uL PT (10.1-12.7) SECONDS INR (0.9-1.3) APTT (26.4-36.2) SECONDS Sodium (137-145) mmol/L Potassium (3.4-5.1) mmol/L Chloride (98-107) mmol/L Carbon Dioxide (22-32) mmol/L BUN (7-17) mg/dL Creatinine (0.52-1.04) mg/dL Estimated GFR (>60) mL/min BUN/Creatinine Ratio (6-22) Glucose (80-110) mg/dL Calcium (8.4-10.2) mg/dL Total Bilirubin (0.2-1.3) mg/dL AST (14-36) IU/L ALT (<35) IU/L Alkaline Phosphatase (38-126) U/L Total Protein (6.3-8.2) g/dL Albumin (3.5-5.0) g/dL Globulin (1.7-4.1) g/dL Albumin/Globulin Ratio (1.0-2.8) Lipase (23-300) U/L Urine RBC None seen (0-5/HPF) Urine WBC 1-5/hpf (0-5/HPF) Ur Squamous Epith Cells 1-5 /hpf (0-5/HPF) Ur Transition Epith Cell 1-5/hpf (0-5/HPF) Urine Bacteria Few (2-10) H (None) Ur Culture Indicated? Specimen cultured Micro UA Comment Rocky esterase + Urine Dip Bedside Urine Glucose Negative Bedside Urine Bilirubin - Negative Bedside Urine Ketone - Negative Urine Specific Barco 1.015 Bedside Urine Occult Blood - Negative Bedside Urine pH 7.0 Bedside Urine Protein - Negative Bedside Urine Urobilinogen - Negative Bedside Urine Nitrite - Negative Bedside Urine Leukocytes + 70 Esterase Imaging Data Rib x-ray: Radiologist's Impression: PROCEDURE: XR RIBS RT MIN 3V W CXR 1V INDICATIONS: fall, pain posterior right ribs / chest wall. TECHNIQUE: 2 views of the right ribs were acquired, along with a single view chest. COMPARISON: [facility], , CHEST 1 VIEW, 04/27/2015, 6:40. FINDINGS: Surgical changes and devices: None. Bones and chest wall: No fractures or dislocations. No suspicious bony lesions. Overlying soft tissues appear unremarkable. Lungs and pleura: No pleural effusions or pneumothorax. Lungs appear clear. Mediastinum: Mediastinal contours appear normal. Heart size is normal. IMPRESSION: No acute fracture. No osseous lesion. If symptoms and/or clinical suspicion for pathology persist, further assessment with repeat, or advanced imaging (e.g., CT or bone scan) may be helpful for further assessment. Dictated by: Sailaja Cobb M.D. on 03/05/2019 at 17:[address] scan - head: Radiologist's Impression: PROCEDURE: CT HEAD/BRAIN WO CON INDICATIONS: decreased ability to ambulate. fall today. h/o alzheimers TECHNIQUE: Noncontrast 4.5 mm thick angled axial sections acquired from the foramen magnum to the vertex, with coronal and sagittal reformats. For radiation dose reduction, the following was used: automated exposure control, adjustment of mA and/or kV according to patient size. COMPARISON: [facility], , BRAIN WITHOUT CONTRAST, 06/10/2015, 17:50. FINDINGS: Image quality: Excellent. CSF spaces: Basal cisterns are patent. No extra-axial fluid collections. The ventricles are symmetric in size and shape. Brain: No intracranial bleeds or masses. There is cerebral volume loss for age, with resultant ventricular and sulcal prominence. There are periventricular and deep white matter chronic small vessel ischemic changes. There is intracranial internal carotid artery atherosclerosis. Skull and face: Calvarium and visualized facial bones appear intact, without suspicious lesions. Sinuses: Visualized sinuses and mastoids are clear. IMPRESSION: 1. No acute intracranial abnormality. 2. Volume loss and small vessel ischemic disease. Dictated by: Sailaja Cobb M.D. on 03/05/2019 at 17:12 Approved by: Sailaja Cobb M.D. on 03/05/2019 at 17:13 Wrist x-ray: Radiologist's Impression: PROCEDURE: XR WRIST RT MIN 3V INDICATIONS: fall, right wrist pain. TECHNIQUE: 4 views of the wrist were acquired. COMPARISON: None. FINDINGS: Bones: No fractures or dislocations. No suspicious bony lesions. Severe joint space narrowing and periarticular osteophyte formation at the radiocarpal joint. The scaphoid and lunate bone appear chronically deformed. Scaphoid view: Limited evaluation, grossly unremarkable Soft tissues: No suspicious soft tissue calcifications. IMPRESSION: 1. 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 2. No definite acute fracture. No osseous lesion. If symptoms and/or clinical suspicion for pathology persist, further assessment with repeat, or advanced imaging (e.g., CT, MRI, or bone scan) may be helpful for further assessment. Dictated by: Sailaja Cobb M.D. on 03/05/2019 at 17:10 Approved by: Sailaja Cobb M.D. on 03/05/2019 at 17:11 <Martinez Degroot, - Last Filed: 03/05/19 19:34> Lab Data Labs: Lab Results 03/05/19 03/05/19 03/05/19 Range/Units 17:17 17:17 17:17 WBC 8.8 (4.5-11.0) X10^3/uL RBC 4.36 (4.0-5.2) X10^6/uL Hgb 13.5 (12.0-16.0) g/dL Hct 39.7 (36-46) % MCV 90.9 (80-100) fL MCH 31.0 (26-34) PG MCHC 34.1 (30-36) % RDW 13.7 (11.6-14.8) % Plt Count 226 (150-400) X10^3/uL Neut % (Auto) 72.5 (50-75) % Lymph % (Auto) 19.9 L (25-40) % [place] % (Auto) 5.3 (3-14) % Eos % (Auto) 1.6 L (2-4) % Baso % (Auto) 0.7 (0-2) % Neut # (Auto) 6400 (1685-2205) /uL Lymph # (Auto) 1700 (7701-8015) /uL [place] # (Auto) 500 (0-900) /uL Eos # (Auto) 100 (0-450) /uL Baso # (Auto) 100 (0-100) /uL PT 11.0 (10.1-12.7) SECONDS INR 1.0 (0.9-1.3) APTT 32 (26.4-36.2) SECONDS Sodium 136 L (137-145) mmol/L Potassium 3.8 (3.4-5.1) mmol/L Chloride 97 L (98-107) mmol/L Carbon Dioxide 30 (22-32) mmol/L BUN 15 (7-17) mg/dL Creatinine 0.80 (0.52-1.04) mg/dL Estimated GFR > 60.0 (>60) mL/min BUN/Creatinine Ratio 18.8 (6-22) Glucose 122 H (80-110) mg/dL Calcium 9.3 (8.4-10.2) mg/dL Total Bilirubin 0.3 (0.2-1.3) mg/dL AST 19 (14-36) IU/L ALT 16 (<35) IU/L Alkaline Phosphatase 86 (38-126) U/L Total Protein 6.5 (6.3-8.2) g/dL Albumin 4.1 (3.5-5.0) g/dL Globulin 2.4 (1.7-4.1) g/dL Albumin/Globulin Ratio 1.7 (1.0-2.8) Lipase 55 (23-300) U/L Urine RBC (0-5/HPF) Urine WBC (0-5/HPF) Ur Squamous Epith Cells (0-5/HPF) Ur Transition Epith Cell (0-5/HPF) Urine Bacteria (None) Ur Culture Indicated? Micro UA Comment 03/05/19 Range/Units 18:50 WBC (4.5-11.0) X10^3/uL RBC (4.0-5.2) X10^6/uL Hgb (12.0-16.0) g/dL Hct (36-46) % MCV (80-100) fL MCH (26-34) PG MCHC (30-36) % RDW (11.6-14.8) % Plt Count (150-400) X10^3/uL Neut % (Auto) (50-75) % Lymph % (Auto) (25-40) % [place] % (Auto) (3-14) % Eos % (Auto) (2-4) % Baso % (Auto) (0-2) % Neut # (Auto) (8497-7691) /uL Lymph # (Auto) (0368-3123) /uL [place] # (Auto) (0-900) /uL Eos # (Auto) (0-450) /uL Baso # (Auto) (0-100) /uL PT (10.1-12.7) SECONDS INR (0.9-1.3) APTT (26.4-36.2) SECONDS Sodium (137-145) mmol/L Potassium (3.4-5.1) mmol/L Chloride (98-107) mmol/L Carbon Dioxide (22-32) mmol/L BUN (7-17) mg/dL Creatinine (0.52-1.04) mg/dL Estimated GFR (>60) mL/min BUN/Creatinine Ratio (6-22) Glucose (80-110) mg/dL Calcium (8.4-10.2) mg/dL Total Bilirubin (0.2-1.3) mg/dL AST (14-36) IU/L ALT (<35) IU/L Alkaline Phosphatase (38-126) U/L Total Protein (6.3-8.2) g/dL Albumin (3.5-5.0) g/dL Globulin (1.7-4.1) g/dL Albumin/Globulin Ratio (1.0-2.8) Lipase (23-300) U/L Urine RBC None seen (0-5/HPF) Urine WBC 1-5/hpf (0-5/HPF) Ur Squamous Epith Cells 1-5 /hpf (0-5/HPF) Ur Transition Epith Cell 1-5/hpf (0-5/HPF) Urine Bacteria Few (2-10) H (None) Ur Culture Indicated? Specimen cultured Micro UA Comment Rocky esterase + Urine Dip Bedside Urine Glucose Negative Bedside Urine Bilirubin - Negative Bedside Urine Ketone - Negative Urine Specific [place] 1.015 Bedside Urine Occult Blood - Negative Bedside Urine pH 7.0 Bedside Urine Protein - Negative Bedside Urine Urobilinogen - Negative Bedside Urine Nitrite - Negative Bedside Urine Leukocytes + 70 Esterase MDM Narrative Medical decision making narrative: Received turned over. Reviewed patient's history and physical. Awaiting urinalysis. Patient was evaluated by social work. They were given information. Process started for patient to receive home health. No indication for admission to the hospital patient ambulate to the bathroom with a walker. They do have a walker at home. Will discharge home with provided information. Patient's expressed understanding and agreement plan. Discharge Plan Departure Patient Disposition: Home Clinical Impression: Weakness Fall Qualifiers: Encounter type: initial encounter Qualified Code(s): W19.XXXA - Unspecified fall, initial encounter Discharge Date/Time: 03/05/19 19:20 Instructions: How to Prevent Falls Activity Restrictions/Additional Instructions: Tomorrow give Dr. Bales office a call to discuss setting up home health. The paperwork was started this evening by our social welfare research worker. Continue all of your medications as directed. Return to the emergency department for any new or worsening symptoms Prescriptions: No Action omeprazole 20 mg capsule,delayed release(DR/EC) 20 mg PO BID RF: 0 phenazopyridine 100 mg tablet 100 mg PO PRN PRN (Reason: Bladder Spasms) RF: 0 hydrochlorothiazide 25 MG tablet 12.5 mg PO DAILY Qty: 0 RF: 0 losartan 50 mg tablet 50 mg PO DAILY RF: 0 memantine 5 mg tablet 20 mg PO DAILY RF: 0 atorvastatin [Lipitor] 10 MG tablet 10 mg PO BEDTIME RF: 0 tolterodine 2 mg capsule,extended release 24hr 2 mg PO DAILY RF: 0 sertraline 50 mg tablet 50 mg PO DAILY RF: 0 acetaminophen 325 mg Tablet 325 mg PO PRN PRN (Reason: pain) RF: 0 donepezil 5 mg tablet 5 mg PO DAILY RF: 0 polyethylene glycol 3350 [Miralax] 17 gram Powder In Packet 17 g PO QPM RF: 0 sennosides-docusate sodium [Senna-S] 8.6-50 mg Tablet 1 tab-cap PO BEDTIME RF: 0 potassium chloride 10 mEq tablet extended release 10 meq PO DAILY RF: 0 ginkgo biloba 60 mg Capsule 120 mg PO DAILY RF: 0 lutein extract-zeaxanthin ext 15-0.7 mg Capsule 1 cap PO QAM RF: 0 cholecalciferol (vitamin D3) [Vitamin D3] 2,000 unit Tablet 2,000 unit PO DAILY RF: 0 (DME) [employer] Dreamstation BIPAP AutoSV Qty: 1 RF: 0 Referrals: Chin Bales MD [Primary Care Provider] -
[2019-03-05 17:23] LABS: Add Manual Diff / Slide Review NO; Basophils Absolute Auto 100 /uL (0-100); Basophils Percent Auto 0.7 % (0-2); Eosinophils Absolute Auto 100 /uL (0-450); Eosinophils Percent Auto 1.6 % (2-4); Hematocrit 39.7 % (36-46); Hemoglobin 13.5 g/dL (12.0-16.0); Lymphocytes Absolute Auto 1700 /uL (1100-4500); Lymphocytes Percent Auto 19.9 % (25-40); Mean Corpuscular HGB Conc 34.1 % (30-36); Mean Corpuscular Volume 90.9 fL (80-100); Monocytes Absolute Auto 500 /uL (0-900); Monocytes Percent Auto 5.3 % (3-14); Neutrophils Absolute Auto 6400 /uL (1500-7000); Neutrophils Percent Auto 72.5 % (50-75); Platelet Count 226 X10^3/uL (150-400); Red Blood Cell Count 4.36 X10^6/uL (4.0-5.2); Red Cell Distribution Width 13.7 % (11.6-14.8); White Blood Cell Count 8.8 X10^3/uL (4.5-11.0)
[2019-03-05 17:30] VITALS: BP 166/87; PULSE 78; RESP 18; O2SAT 96
[2019-03-05 17:38] LABS: PTT Partial Thromboplastin Tim 32 SECONDS (26.4-36.2)
[2019-03-05 17:39] LABS: Alanine Aminotransferase 16 IU/L (<35); Albumin 4.1 g/dL (3.5-5.0); Albumin Globulin Ratio 1.7 (1.0-2.8); Alkaline Phosphatase 86 U/L (38-126); Aspartate Aminotransferase 19 IU/L (14-36); BUN Creatinine Ratio 18.8 (6-22); Bilirubin Total 0.3 mg/dL (0.2-1.3); Blood Urea Nitrogen 15 mg/dL (7-17); Calcium 9.3 mg/dL (8.4-10.2); Carbon Dioxide 30 mmol/L (22-32); Chloride 97 mmol/L (98-107); Estimated Glomerular Filt Rate > 60.0 mL/min (>60); Globulin 2.4 g/dL (1.7-4.1); Glucose 122 mg/dL (80-110); HEMOLYSIS < 15 (0-50); Lipase 55 U/L (23-300); Potassium 3.8 mmol/L (3.4-5.1); Sodium 136 mmol/L (137-145); Total Protein 6.5 g/dL (6.3-8.2)
[2019-03-05 18:00] VITALS: BP 160/80; PULSE 72; RESP 14; O2SAT 98
[2019-03-05 19:00] VITALS: BP 149/80; PULSE 78; RESP 16; O2SAT 98
[2019-03-05 19:09] LABS: RBC Urine None Seen (0-5/HPF)
[2019-03-05 19:19] LABS: Bacteria Urine Few (2-10); Culture Indicated Urine Specimen Cultured; Squamous Epithelial Cell Urine 1-5 /HPF (0-5/HPF); Transitional Epi Cells Urine 1-5/HPF (0-5/HPF); Urine Comments LEU ESTERASE +; WBC Urine 1-5/HPF (0-5/HPF)
== END 2019-03-05 19:20 | disposition home or self-care (01) ==
PROVIDERS: Emergency Medicine; Emergency Provider Emergency Medicine; Family Provider Internal Medicine; PCP Internal Medicine
DX: R53.1 Weakness (principal); W19.XXXA Unspecified fall, initial encounter; R26.81 Unsteadiness on feet; G30.9 Alzheimer's disease, unspecified
CPT/HCPCS: 36415; 70450; 71101; 73110; 80053; 81003; 81015; 83690; 85025; 85610; 85730; 87086; 93005; 99284

== ENCOUNTER 2019-04-01 13:04 | Emergency (ER) | payer MEDICARE, SELFPAY ==
[2019-04-01 13:12] VITALS: BP 162/83; PULSE 95; RESP 16; TEMP 36.1; O2SAT 100; BMI 26.5
--- NOTE | 2019-04-01 13:26 | DI.RAD.S_ITS ---
PROCEDURE: XR CHEST 1V INDICATIONS: suspected sepsis TECHNIQUE: One view of the chest was acquired. COMPARISON: [facility], , CHEST 1 VIEW, 04/27/2015, 6:40. FINDINGS: Surgical changes and devices: None. Lungs and pleura: Lungs are clear. No pleural effusions or pneumothorax. Mediastinum: Mediastinal contours appear normal. Heart size is normal. Bones and chest wall: No suspicious bony lesions. Overlying soft tissues appear unremarkable. IMPRESSION: No acute cardiopulmonary disease process. Dictated by: Pari Shell MD, PhD on 04/01/2019 at 14:47 Approved by: Pari Shell MD, PhD on 04/01/2019 at 14:47
--- NOTE | 2019-04-01 13:31 | PC.NURSE ---
with ems lift assist. pt able to stand, moves very slow and with weakness.
[2019-04-01 14:00] LABS: Add Manual Diff / Slide Review NO; Basophils Absolute Auto 100 /uL (0-100); Basophils Percent Auto 1.2 % (0-2); Eosinophils Absolute Auto 100 /uL (0-450); Eosinophils Percent Auto 1.7 % (2-4); Hematocrit 41.2 % (36-46); Hemoglobin 14.2 g/dL (12.0-16.0); Lymphocytes Absolute Auto 1900 /uL (1100-4500); Lymphocytes Percent Auto 26.5 % (25-40); Mean Corpuscular HGB Conc 34.5 % (30-36); Mean Corpuscular Hemoglobin 31.1 PG (26-34); Mean Corpuscular Volume 90.1 fL (80-100); Monocytes Absolute Auto 400 /uL (0-900); Monocytes Percent Auto 6.3 % (3-14); Neutrophils Absolute Auto 4600 /uL (1500-7000); Neutrophils Percent Auto 64.3 % (50-75); Platelet Count 240 X10^3/uL (150-400); Red Blood Cell Count 4.58 X10^6/uL (4.0-5.2); Red Cell Distribution Width 13.8 % (11.6-14.8); White Blood Cell Count 7.1 X10^3/uL (4.5-11.0)
[2019-04-01 14:11] LABS: Alanine Aminotransferase 16 IU/L (<35); Albumin 4.5 g/dL (3.5-5.0); Albumin Globulin Ratio 1.5 (1.0-2.8); Alkaline Phosphatase 107 U/L (38-126); Aspartate Aminotransferase 22 IU/L (14-36); BUN Creatinine Ratio 22.9 (6-22); Bilirubin Total 0.5 mg/dL (0.2-1.3); Blood Urea Nitrogen 16 mg/dL (7-17); Calcium 9.8 mg/dL (8.4-10.2); Carbon Dioxide 29 mmol/L (22-32); Chloride 97 mmol/L (98-107); Estimated Glomerular Filt Rate > 60.0 mL/min (>60); Glucose 176 mg/dL (80-110); HEMOLYSIS < 15 (0-50); Lipase 67 U/L (23-300); Potassium 3.8 mmol/L (3.4-5.1); Sodium 136 mmol/L (137-145); Total Protein 7.5 g/dL (6.3-8.2)
[2019-04-01 14:12] LABS: Lactate (Lactic Acid) 2.4 mmol/L (0.7-2.1)
[2019-04-01 14:19] LABS: Procalcitonin < 0.05 ng/mL (<0.5)
[2019-04-01 14:31] LABS: Prothrombin Time 11.2 SECONDS (10.1-12.7)
[2019-04-01 14:34] LABS: PTT Partial Thromboplastin Tim 34 SECONDS (26.4-36.2)
--- NOTE | 2019-04-01 14:38 | ED_ITS ---
HPI - Weakness General Chief complaint: Weakness Stated complaint: Can't Walk, Hx Alzheimers Time Seen by Provider: 04/01/19 14:19 Source: patient and family Mode of arrival: Family Vehicle Limitations: no limitations History of Present Illness HPI Narrative: 70-year-old female with a known history of Alzheimer's disease brought in by her for continued falls. He stated that she fell today. She was having right-sided weakness. She does have a brace on the right lower extremity. He states that he thinks it is time that he explores other living situations. Patient unable to provide any HPI Related Data Home Medications Medication Instructions Recorded Confirmed hydrochlorothiazide 12.5 mg PO DAILY #0 tab 10/08/15 04/01/19 Respironics Dreamstation BIPAP #1 ea 03/22/18 04/01/19 AutoSV acetaminophen 325 mg PO PRN PRN 03/05/19 04/01/19 atorvastatin [Lipitor] 10 mg PO BEDTIME 03/05/19 04/01/19 cholecalciferol (vitamin D3) 2,000 unit PO DAILY 03/05/19 04/01/19 [Vitamin D3] donepezil 5 mg PO DAILY 03/05/19 04/01/19 ginkgo biloba 120 mg PO DAILY 03/05/19 04/01/19 losartan 50 mg PO DAILY 03/05/19 04/01/19 lutein extract-zeaxanthin ext 1 cap PO QAM 03/05/19 04/01/19 memantine 20 mg PO DAILY 03/05/19 04/01/19 polyethylene glycol 3350 [Miralax] 17 g PO QPM 03/05/19 04/01/19 potassium chloride 10 meq PO DAILY 03/05/19 04/01/19 sennosides-docusate sodium 1 tab-cap PO BEDTIME 03/05/19 04/01/19 [Senna-S] sertraline 50 mg PO DAILY 03/05/19 04/01/19 tolterodine 2 mg PO DAILY 03/05/19 04/01/19 Allergies Allergy/AdvReac Type Severity Reaction Status Date / Time olmesartan Allergy Severe TONGUE Verified 05/16/18 19:53 SWELLING polyethylene glycol Allergy Severe ABD PAIN Verified 05/16/18 19:53 [POLYETHYLENE GLYCOL] hydrochlorothiazide Allergy Mild ANKLES Verified 05/16/18 19:53 SWELL Penicillins Allergy Mild RASH Verified 05/16/18 19:53 aspirin Allergy Unknown Verified 05/16/18 19:53 dexamethasone Allergy Unknown Verified 05/16/18 19:53 pantoprazole [From PROTONIX] Allergy Unknown Verified 05/16/18 19:53 Sulfa (Sulfonamide Allergy Unknown Verified 05/16/18 19:53 Antibiotics) celecoxib AdvReac Mild GI UPSET Verified 05/16/18 19:53 ciprofloxacin AdvReac Mild NAUSEA Verified 05/16/18 19:53 cyclobenzaprine AdvReac Mild DECREASED Verified 05/16/18 19:53 BP hydrocodone AdvReac Mild CONSTIPATIO Verified 05/16/18 19:53 N ibuprofen AdvReac Mild GI UPSET Verified 05/16/18 19:53 propylene glycol AdvReac Mild GI UPSET Verified 05/16/18 19:53 Review of Systems Review of Systems Narrative: Provided by Constitutional Constitutional: Reports frequent falls Musculoskeletal Comments: Right leg weakness Integumentary/Breasts Skin/Breast: Denies rash Neurologic Neurologic: Denies behavioral changes and Reports frequent falls Psychiatric Psychiatric: Denies behavioral changes Hematologic/Lymphatic Hematologic/Lymphatic: Denies easy bleeding and Denies easy bruising Patient History Medical History Chronic constipation (Chronic) Depression (Chronic) Excessive daytime sleepiness (Chronic) GERD (gastroesophageal reflux disease) (Acute) HTN (hypertension) (Chronic) Long-term memory impairment (Chronic) Neuropathy (Chronic) Obstructive sleep apnea of adult (Chronic ~1999) Primary insomnia (Chronic) Snoring (Chronic) Social History marital status: details: to Gigi household members: spouse caregiver/support person: Yes seatbelt use: always water heater temp set < 120 deg: Yes working smoke detector in home: Yes carbon monox detector in home: Yes Smoking Status: Never smoker alcohol intake: current substance use type: does not use Smoking Status: Never smoker alcohol intake frequency: holidays/special occasions only Substance Use Type: does not use Exam Initial Vital Signs Initial Vital Signs: Vital Signs Temperature 96.9 F L 04/01/19 13:12 Pulse Rate 95 H 04/01/19 13:12 Respiratory Rate 16 04/01/19 13:12 Blood Pressure 162/83 H 04/01/19 13:12 Pulse Oximetry 100 04/01/19 13:12 Const General: comfortable and well developed Limitations: altered mental status [facility] Head: normal to inspection and normocephalic Resp Effort & Inspection: normal respiratory effort Auscultation: clear to auscultation bilaterally Cardio Rate: regular rate Rhythm: regular rhythm Skin Lesions: no lesions Rashes: no rashes Neuro General: alert, awake and moves all extremities Cognition: abnormal cognition Extrem General: normal to inspection Other: No gross deformities Course Orders Ordered: ED Orders 04/01/19 13:26 XR chest 1V Stat 04/01/19 13:31 Consult to [facility] - Manager Inventory Management Stat 04/01/19 13:36 Complete Blood Count AUTO DIFF Stat Comprehensive Metabolic Panel Stat Lactate (Lactic Acid) Stat Lipase Stat Partial Thromboplastin Time Stat Procalcitonin Stat Prothrombin Time INR Stat 04/01/19 14:48 XR pelvis 1-2V Stat Vital Signs Vital signs: Vital Signs - 8 hr 04/01/19 13:12 Temperature 96.9 F L Pulse Rate 95 H Respiratory Rate 16 Blood Pressure 162/83 H Pulse Oximetry 100 MDM - Weakness Lab Data Attestation: I reviewed the patient's lab results. Result diagrams: 04/01/19 13:36 04/01/19 13:36 Labs: Lab Results 04/01/19 04/01/19 04/01/19 Range/Units 13:36 13:36 13:36 WBC 7.1 (4.5-11.0) X10^3/uL RBC 4.58 (4.0-5.2) X10^6/uL Hgb 14.2 (12.0-16.0) g/dL Hct 41.2 (36-46) % MCV 90.1 (80-100) fL MCH 31.1 (26-34) PG MCHC 34.5 (30-36) % RDW 13.8 (11.6-14.8) % Plt Count 240 (150-400) X10^3/uL Neut % (Auto) 64.3 (50-75) % Lymph % (Auto) 26.5 (25-40) % Mccone % (Auto) 6.3 (3-14) % Eos % (Auto) 1.7 L (2-4) % Baso % (Auto) 1.2 (0-2) % Neut # (Auto) 4600 (4840-9586) /uL Lymph # (Auto) 1900 (1085-2128) /uL Mccone # (Auto) 400 (0-900) /uL Eos # (Auto) 100 (0-450) /uL Baso # (Auto) 100 (0-100) /uL PT 11.2 (10.1-12.7) SECONDS INR 1.0 (0.9-1.3) APTT 34 D (26.4-36.2) SECONDS Sodium (137-145) mmol/L Potassium (3.4-5.1) mmol/L Chloride (98-107) mmol/L Carbon Dioxide (22-32) mmol/L BUN (7-17) mg/dL Creatinine (0.52-1.04) mg/dL Estimated GFR (>60) mL/min BUN/Creatinine Ratio (6-22) Glucose (80-110) mg/dL Lactate (0.7-2.1) mmol/L Calcium (8.4-10.2) mg/dL Total Bilirubin (0.2-1.3) mg/dL AST (14-36) IU/L ALT (<35) IU/L Alkaline Phosphatase (38-126) U/L Total Protein (6.3-8.2) g/dL Albumin (3.5-5.0) g/dL Globulin (1.7-4.1) g/dL Albumin/Globulin Ratio (1.0-2.8) Lipase (23-300) U/L Procalcitonin < 0.05 (<0.5) ng/mL 04/01/19 04/01/19 Range/Units 13:36 13:36 WBC (4.5-11.0) X10^3/uL RBC (4.0-5.2) X10^6/uL Hgb (12.0-16.0) g/dL Hct (36-46) % MCV (80-100) fL MCH (26-34) PG MCHC (30-36) % RDW (11.6-14.8) % Plt Count (150-400) X10^3/uL Neut % (Auto) (50-75) % Lymph % (Auto) (25-40) % Mccone % (Auto) (3-14) % Eos % (Auto) (2-4) % Baso % (Auto) (0-2) % Neut # (Auto) (9833-1230) /uL Lymph # (Auto) (6257-1355) /uL Mccone # (Auto) (0-900) /uL Eos # (Auto) (0-450) /uL Baso # (Auto) (0-100) /uL PT (10.1-12.7) SECONDS INR (0.9-1.3) APTT (26.4-36.2) SECONDS Sodium 136 L (137-145) mmol/L Potassium 3.8 (3.4-5.1) mmol/L Chloride 97 L (98-107) mmol/L Carbon Dioxide 29 (22-32) mmol/L BUN 16 (7-17) mg/dL Creatinine 0.70 (0.52-1.04) mg/dL Estimated GFR > 60.0 (>60) mL/min BUN/Creatinine Ratio 22.9 H (6-22) Glucose 176 H (80-110) mg/dL Lactate 2.4 H (0.7-2.1) mmol/L Calcium 9.8 (8.4-10.2) mg/dL Total Bilirubin 0.5 (0.2-1.3) mg/dL AST 22 (14-36) IU/L ALT 16 (<35) IU/L Alkaline Phosphatase 107 (38-126) U/L Total Protein 7.5 (6.3-8.2) g/dL Albumin 4.5 (3.5-5.0) g/dL Globulin 3.0 (1.7-4.1) g/dL Albumin/Globulin Ratio 1.5 (1.0-2.8) Lipase 67 (23-300) U/L Procalcitonin (<0.5) ng/mL Imaging Data Chest x-ray: Radiologist Impression: [address] [id number] XRay Report Signed Patient: Abbey Baptiste [facility]#: [id number] : 1Acct:[id number] Age/Sex: 78 / FDate of Service: 04/01/19 Loc: ED Accession Number: [id number] Procedure: XR chest 1V Ordering Provider: Martinez Degroot D.O. PROCEDURE: XR CHEST 1V INDICATIONS: suspected sepsis TECHNIQUE: One view of the chest was acquired. COMPARISON: [facility], CHEST 1 VIEW, 04/27/2015, 6:40. FINDINGS: Surgical changes and devices: None. Lungs and pleura: Lungs are clear. No pleural effusions or pneumothorax. Mediastinum: Mediastinal contours appear normal. Heart size is normal. Bones and chest wall: No suspicious bony lesions. Overlying soft tissues appear unremarkable. IMPRESSION: No acute cardiopulmonary disease process. Dictated by: Pari Shell MD, PhD on 04/01/2019 at 14:47 Approved by: Pari Shell MD, PhD on 04/01/2019 at 14:47 Pelvic x-ray: Radiologist Impression: [address] [id number] XRay Report Signed Patient: Abbey Baptiste [facility]#: [id number] : 1Acct:[id number] Age/Sex: 78 / FDate of Service: 04/01/19 Loc: ED Accession Number: [id number] Procedure: XR pelvis 1-2V Ordering Provider: Martinez Degroot D.O. PROCEDURE: XR PELVIS 1-2V INDICATIONS: eval for fracture after fall TECHNIQUE: 1 view(s) of the pelvis acquired. COMPARISON: [facility], XR CHEST 1V, 04/01/2019, 14:28. [facility], XR ACUTE ABDOMEN SERIES, 07/29/2017, 17:18. FINDINGS: Bones: No fractures or dislocations. No suspicious bony lesions. Degenerative changes are seen, particularly involving the lower lumbar spine and the right hip. Soft tissues: Visualized bowel gas pattern is normal. No suspicious soft tissue calcifications. Pelvic phleboliths are incidentally noted. IMPRESSION: On this single view study, no displaced fractures are seen. If there is point tenderness (or other clinical suspicion for a fracture not seen on these images) then a dedicated CT could be considered for further evaluation, as clinically appropriate. Dictated by: Randal Rob M.D. on 04/01/2019 at 15:18 Approved by: Randal Rob M.D. on 04/01/2019 at 15:18 [facility] Narrative Medical decision making narrative: Patient is at baseline neurologic status. Her workup here in the emergency department included x-rays are unremarkable. Had a discussion with . Social work also talked with the . They were able to get an evaluation tomorrow morning by a local nursing facility for potentially a respite. Patient's was okay taking her home. Discharge Plan Departure Patient Disposition: Home Clinical Impression: Alzheimer's dementia Qualifiers: Alzheimer's disease onset: unspecified onset Dementia behavioral disturbance: without behavioral disturbance Qualified Code(s): G30.9 - Alzheimer's disease, unspecified Discharge Date/Time: 04/01/19 16:16 Instructions: How to Prevent Falls Activity Restrictions/Additional Instructions: Please contact the phone numbers that you were given today by social work tomorrow morning for an evaluation for potential placement another living situations. Contact her primary provider for follow-up. Continue all of her medications as directed. Prescriptions: No Action hydrochlorothiazide 25 MG tablet 12.5 mg PO DAILY Qty: 0 RF: 0 losartan 50 mg tablet 50 mg PO DAILY RF: 0 memantine 5 mg tablet 20 mg PO DAILY RF: 0 atorvastatin [Lipitor] 10 MG tablet 10 mg PO BEDTIME RF: 0 tolterodine 2 mg capsule,extended release 24hr 2 mg PO DAILY RF: 0 sertraline 50 mg tablet 50 mg PO DAILY RF: 0 acetaminophen 325 mg Tablet 325 mg PO PRN PRN (Reason: pain) RF: 0 donepezil 5 mg tablet 5 mg PO DAILY RF: 0 polyethylene glycol 3350 [Miralax] 17 gram Powder In Packet 17 g PO QPM RF: 0 sennosides-docusate sodium [Senna-S] 8.6-50 mg Tablet 1 tab-cap PO BEDTIME RF: 0 potassium chloride 10 mEq tablet extended release 10 meq PO DAILY RF: 0 ginkgo biloba 60 mg Capsule 120 mg PO DAILY RF: 0 lutein extract-zeaxanthin ext 15-0.7 mg Capsule 1 cap PO QAM RF: 0 cholecalciferol (vitamin D3) [Vitamin D3] 2,000 unit Tablet 2,000 unit PO DAILY RF: 0 (DME) [employer] Dreamstation BIPAP AutoSV Qty: 1 RF: 0 Referrals: Chin Bales MD [Primary Care Provider] -
--- NOTE | 2019-04-01 14:48 | DI.RAD.S_ITS ---
PROCEDURE: XR PELVIS 1-2V INDICATIONS: eval for fracture after fall TECHNIQUE: 1 view(s) of the pelvis acquired. COMPARISON: [facility], CR, XR CHEST 1V, 04/01/2019, 14:28. [facility], CR, XR ACUTE ABDOMEN SERIES, 07/29/2017, 17:18. FINDINGS: Bones: No fractures or dislocations. No suspicious bony lesions. Degenerative changes are seen, particularly involving the lower lumbar spine and the right hip. Soft tissues: Visualized bowel gas pattern is normal. No suspicious soft tissue calcifications. Pelvic phleboliths are incidentally noted. IMPRESSION: On this single view study, no displaced fractures are seen. If there is point tenderness (or other clinical suspicion for a fracture not seen on these images) then a dedicated CT could be considered for further evaluation, as clinically appropriate. Dictated by: Randal Rob M.D. on 04/01/2019 at 15:18 Approved by: Randal Rob M.D. on 04/01/2019 at 15:18
--- NOTE | 2019-04-01 15:31 | CM.SWNOTE ---
WATER [employer] SUPERINTENDENT Note: Received referral from ED department requesting WATER [employer] SE[employer]ER [employer]S SUPERINTENDENT consult on this 78yr old female brought in by her spouse unable to ambulate. Spouse goes by Gigi but his actual name is Lobo # [phone]. PCP is Dr. Bales. Patient with 10yr history of Alzheimer's Disease which spouse reports is getting worse. Spoke with Dr. Degroot whom reports that hip xray completed and negative. Patient will be discharged from Emergency Department today. Spouse in agreement to take patient home but is interested in community resources for support either at home or in a facility. Patient primarily in w/c and sometimes can use a walker. Patient alert during interview. Spouse reports that currently patient has [facility] in the residence working with therapy. Spouse would like to make sure that this stays in place but reports that it is not enough. [employer] SUPERINTENDENT placed call to [facility] spoke with Licha she reports that they do have respite/fdc memory care beds but that she has nobody that can evaluate for placement this afternoon. Licha reports that [facility] staff would be more than happy to evaluate patient in their residence in AM. Spouse provided with 2 phone numbers to call for in home assessment. In addition, called [facility] informing them that visit needed tomorrow 2-20. [facility] representative notified and will document that patient in ED today and long-term plan needs to be established. Spoke with Dr. Degroot and he is aware and agreeable to the above. Spouse provided with senior resource guide, [facility] phone numbers for assessment, and [facility] called to confirm visit in the residence tomorrow. P: Home today. Community resources provided and home health visit confirmed. BIBI Husain
[2019-04-01 15:41] LABS: Reflexed Lactate in 2 Hours Y
== END 2019-04-01 16:16 | disposition home or self-care (01) ==
PROVIDERS: Emergency Provider Emergency Medicine; Family Provider Internal Medicine; PCP Internal Medicine; Referring Provider Specialist
DX: G30.9 Alzheimer's disease, unspecified (principal); S39.93XA Unspecified injury of pelvis, initial encounter; W19.XXXA Unspecified fall, initial encounter; Z91.81 History of falling
CPT/HCPCS: 36415; 71045; 72170; 80053; 83605; 83690; 84145; 85025; 85610; 85730; 99283; 99284

== ENCOUNTER 2019-04-09 12:59 | Emergency (ER) | payer MEDICARE, SELFPAY ==
[2019-04-09 13:09] VITALS: BP 141/72; PULSE 83; RESP 14; TEMP 36.8; O2SAT 93
--- NOTE | 2019-04-09 13:10 | ED.WEAKNESS ---
HPI - Weakness General Chief complaint: Weakness Stated complaint: General Weakness Time Seen by Provider: 04/09/19 13:09 Source: family () Mode of arrival: Ambulatory Limitations: no limitations History of Present Illness HPI Narrative: 78-year-old female who I evaluated in the emergency department approximately 1 week ago. Has a history of Alzheimer's dementia. Was seen by social work at that time. was concerned about being able to take care for at home. Was seen by social work during that visit. Patient was given information about potential nursing facilities. He did look at 1 of the facilities and he stated that he thought that it would not be appropriate for her. Has followed up with the primary doctor since then. Her Zoloft was increased. Today had same symptoms as last time. Weakness in the right lower extremity. She did not fall. She did not hit her head. He helped her to the ground. Related Data Home Medications Medication Instructions Recorded Confirmed hydrochlorothiazide 12.5 mg PO DAILY #0 tab 10/08/15 04/09/19 Respironics Dreamstation BIPAP #1 ea 03/22/18 04/09/19 AutoSV acetaminophen 325 mg PO PRN PRN 03/05/19 04/09/19 atorvastatin [Lipitor] 10 mg PO BEDTIME 03/05/19 04/09/19 cholecalciferol (vitamin D3) 2,000 unit PO DAILY 03/05/19 04/09/19 [Vitamin D3] donepezil 5 mg PO DAILY 03/05/19 04/09/19 ginkgo biloba 120 mg PO DAILY 03/05/19 04/09/19 losartan 50 mg PO DAILY 03/05/19 04/09/19 lutein extract-zeaxanthin ext 1 cap PO QAM 03/05/19 04/09/19 memantine 20 mg PO DAILY 03/05/19 04/09/19 polyethylene glycol 3350 [Miralax] 17 g PO QPM 03/05/19 04/09/19 potassium chloride 10 meq PO DAILY 03/05/19 04/09/19 sennosides-docusate sodium 1 tab-cap PO BEDTIME 03/05/19 04/01/19 [Senna-S] sertraline 50 mg PO DAILY 03/05/19 04/01/19 tolterodine 2 mg PO DAILY 03/05/19 04/09/19 omeprazole 20 mg PO BID 04/09/19 04/09/19 sertraline 100 mg PO DAILY 04/09/19 04/09/19 Allergies Allergy/AdvReac Type Severity Reaction Status Date / Time olmesartan Allergy Severe TONGUE Verified 04/09/19 13:09 SWELLING polyethylene glycol Allergy Severe ABD PAIN Verified 04/09/19 13:09 [POLYETHYLENE GLYCOL] hydrochlorothiazide Allergy Mild ANKLES Verified 04/09/19 13:09 SWELL Penicillins Allergy Mild RASH Verified 04/09/19 13:09 aspirin Allergy Unknown Verified 04/09/19 13:09 dexamethasone Allergy Unknown Verified 04/09/19 13:09 pantoprazole [From PROTONIX] Allergy Unknown Verified 04/09/19 13:09 Sulfa (Sulfonamide Allergy Unknown Verified 04/09/19 13:09 Antibiotics) celecoxib AdvReac Mild GI UPSET Verified 04/09/19 13:09 ciprofloxacin AdvReac Mild NAUSEA Verified 04/09/19 13:09 cyclobenzaprine AdvReac Mild DECREASED Verified 04/09/19 13:09 BP hydrocodone AdvReac Mild CONSTIPATIO Verified 04/09/19 13:09 N ibuprofen AdvReac Mild GI UPSET Verified 04/09/19 13:09 propylene glycol AdvReac Mild GI UPSET Verified 04/09/19 13:09 Review of Systems Review of Systems Narrative: Provided by Musculoskeletal Comments: Right lower extremity weakness Neurologic Neurologic: Denies behavioral changes Psychiatric Psychiatric: Denies behavioral changes Hematologic/Lymphatic Hematologic/Lymphatic: Denies easy bleeding and Denies easy bruising Patient History Medical History Chronic constipation (Chronic) Depression (Chronic) Excessive daytime sleepiness (Chronic) GERD (gastroesophageal reflux disease) (Acute) HTN (hypertension) (Chronic) Long-term memory impairment (Chronic) Neuropathy (Chronic) Obstructive sleep apnea of adult (Chronic ~1999) Primary insomnia (Chronic) Snoring (Chronic) Surgical History Status post laminectomy (Acute) Status post surgery (11/06/15) Status post tubal ligation Social History marital status: details: to Gigi household members: spouse caregiver/support person: Yes seatbelt use: always water heater temp set < 120 deg: Yes working smoke detector in home: Yes carbon monox detector in home: Yes Smoking Status: Never smoker alcohol intake: current substance use type: does not use Smoking Status: Never smoker alcohol intake frequency: holidays/special occasions only Substance Use Type: does not use Exam Initial Vital Signs Initial Vital Signs: Vital Signs Temperature 98.3 F 04/09/19 13:09 Pulse Rate 83 04/09/19 13:09 Respiratory Rate 14 04/09/19 13:09 Blood Pressure 141/72 H 04/09/19 13:09 Pulse Oximetry 93 04/09/19 13:09 Const General: comfortable and well developed Other: Would not answer questions Resp Effort & Inspection: normal respiratory effort Cardio Rate: regular rate Skin Lesions: no lesions Rashes: no rashes Neuro General: alert and awake Other: Would not answer questions. states she is at baseline Extrem Other: Leg brace to right lower extremity Psych Appearance: grossly normal and well kempt Course Vital Signs Vital signs: Vital Signs - 8 hr 04/09/19 13:09 04/09/19 14:06 Temperature 98.3 F Pulse Rate 83 78 Respiratory Rate 14 16 Blood Pressure 141/72 H Blood Pressure [Right Arm] 146/77 H Pulse Oximetry 93 94 MDM - Weakness MDM Narrative Medical decision making narrative: Patient is at baseline mental status per who is at bedside. The situation that she experience earlier today is not new. She does have a history of Alzheimer's dementia. Has right lower extremity weakness. It is the same situation that I saw him for approximately 1 week ago. He states that normally with the situations after he let her rest for a while her strength seems to return. That happened today in the ER. I did discuss the case with the patient's primary provider. He stated that they have talked to them about other living situations but this does seem to be a financial issue. Patient's stated that [facility] had the phone numbers for the [facility] and [facility]. There are other care facilities here in the area. He was given resources for these. He stated that he does feel comfortable taking her home. They were given follow-up instructions. Discharge Plan Departure Patient Disposition: Home Clinical Impression: Alzheimer's dementia Qualifiers: Alzheimer's disease onset: unspecified onset Dementia behavioral disturbance: without behavioral disturbance Qualified Code(s): G30.9 - Alzheimer's disease, unspecified Instructions: How to Prevent Falls Activity Restrictions/Additional Instructions: Use the resources that you were given to talk about potential other living situations. I also recommend you talk with her primary doctor's office for help with this as well. Return to the emergency department for any new symptoms. Prescriptions: No Action hydrochlorothiazide 25 MG tablet 12.5 mg PO DAILY Qty: 0 RF: 0 sertraline 100 mg tablet 100 mg PO DAILY RF: 0 omeprazole 20 mg capsule,delayed release(DR/EC) 20 mg PO BID RF: 0 losartan 50 mg tablet 50 mg PO DAILY RF: 0 memantine 5 mg tablet 20 mg PO DAILY RF: 0 atorvastatin [Lipitor] 10 MG tablet 10 mg PO BEDTIME RF: 0 tolterodine 2 mg capsule,extended release 24hr 2 mg PO DAILY RF: 0 sertraline 50 mg tablet 50 mg PO DAILY RF: 0 acetaminophen 325 mg Tablet 325 mg PO PRN PRN (Reason: pain) RF: 0 donepezil 5 mg tablet 5 mg PO DAILY RF: 0 polyethylene glycol 3350 [Miralax] 17 gram Powder In Packet 17 g PO QPM RF: 0 sennosides-docusate sodium [Senna-S] 8.6-50 mg Tablet 1 tab-cap PO BEDTIME RF: 0 potassium chloride 10 mEq tablet extended release 10 meq PO DAILY RF: 0 ginkgo biloba 60 mg Capsule 120 mg PO DAILY RF: 0 lutein extract-zeaxanthin ext 15-0.7 mg Capsule 1 cap PO QAM RF: 0 cholecalciferol (vitamin D3) [Vitamin D3] 2,000 unit Tablet 2,000 unit PO DAILY RF: 0 (DME) Respironics Dreamstation BIPAP AutoSV Qty: 1 RF: 0 Referrals: Chin Bales MD [Primary Care Provider] -
[2019-04-09 14:06] VITALS: BP 146/77; PULSE 78; RESP 16; O2SAT 94
--- NOTE | 2019-04-09 14:56 | PC.NURSE ---
assist with walker
== END 2019-04-09 14:57 | disposition home or self-care (01) ==
PROVIDERS: Emergency Provider Emergency Medicine; Family Provider Internal Medicine; PCP Internal Medicine
DX: G30.9 Alzheimer's disease, unspecified (principal)
CPT/HCPCS: 99281

== ENCOUNTER 2019-07-05 09:40 | Inpatient (IN) | payer MEDICARE, SELFPAY ==
[2019-07-05] VITALS (8 sets, daily range): BP systolic 130–153; BP diastolic 63–115; PULSE 65–92; RESP 17–22; TEMP 36.3–37.4; O2SAT 93–96; BMI 31.3
--- NOTE | 2019-07-05 09:47 | ED_ITS ---
HPI - Weakness General Chief complaint: Weakness Stated complaint: Profound Weakness Time Seen by Provider: 07/05/19 09:45 Source: patient, EMS and old records reviewed Mode of arrival: EMS Limitations: other (dementia) History of Present Illness HPI Narrative: This is a 78-year-old female who is brought to the emergency department for weakness. Patient was at home with her she has known Alzheimer's. Per EMS and the patient she is weaker today. Per EMS has been stated that he was able to get her up this morning around 7 or 730 with some extra assistance she was able to ambulate minimally but seemed to be increasingly weak and now on able to ambulate. Patient has not had any recent trauma or falls that they are aware of. She currently denies any headache, she denies any chest pain or shortness of breath she denies any nausea or vomiting, she denies any GI or urinary symptoms. She does describe some generalized weakness but no focal weakness. She does have a brace on her right lower extrem ity. She is able to tell me her name, she states ?she does not care and does not know? when asked about the year. Related Data Home Medications Medication Instructions Recorded Confirmed hydrochlorothiazide 12.5 mg PO DAILY #0 tab 10/08/15 07/05/19 Respironics Dreamstation BIPAP #1 ea 03/22/18 07/05/19 AutoSV acetaminophen 325 mg PO PRN PRN 03/05/19 07/05/19 atorvastatin [Lipitor] 10 mg PO BEDTIME 03/05/19 07/05/19 cholecalciferol (vitamin D3) 2,000 unit PO DAILY 03/05/19 07/05/19 [Vitamin D3] ginkgo biloba 120 mg PO DAILY 03/05/19 07/05/19 losartan 50 mg PO DAILY 03/05/19 07/05/19 lutein extract-zeaxanthin ext 1 cap PO QAM 03/05/19 07/05/19 polyethylene glycol 3350 [Miralax] 17 g PO QPM 03/05/19 07/05/19 potassium chloride 10 meq PO DAILY 03/05/19 07/05/19 sennosides-docusate sodium 1 tab-cap PO BEDTIME 03/05/19 07/05/19 [Senna-S] tolterodine 2 mg PO DAILY 03/05/19 07/05/19 omeprazole 20 mg PO BID 04/09/19 07/05/19 sertraline 100 mg PO DAILY 04/09/19 07/05/19 donepezil 5 mg PO DAILY 07/05/19 07/05/19 phenazopyridine 100 mg PO TID PRN 07/05/19 07/05/19 propranolol 60 mg PO DAILY 07/05/19 07/05/19 Allergies Allergy/AdvReac Type Severity Reaction Status Date / Time olmesartan [From Benicar] Allergy Verified 07/05/19 12:25 Penicillins Allergy Verified 07/05/19 12:23 Sulfa (Sulfonamide Allergy Verified 07/05/19 12:23 Antibiotics) Review of Systems Review of Systems ROS Unobtainable: All systems reviewed & are unremarkable except as noted in HPI and below Patient History Medical History Chronic constipation (Chronic) Depression (Chronic) Excessive daytime sleepiness (Chronic) GERD (gastroesophageal reflux disease) (Acute) HTN (hypertension) (Chronic) Long-term memory impairment (Chronic) Neuropathy (Chronic) Obstructive sleep apnea of adult (Chronic ~1999) Primary insomnia (Chronic) Snoring (Chronic) Surgical History Status post laminectomy (Acute) Status post surgery (11/06/15) Status post tubal ligation Social History marital status: details: to Gigi household members: spouse caregiver/support person: Yes seatbelt use: always water heater temp set < 120 deg: Yes working smoke detector in home: Yes carbon monox detector in home: Yes Smoking Status: Never smoker alcohol intake: current substance use type: does not use Smoking Status: Never smoker alcohol intake frequency: holidays/special occasions only Substance Use Type: does not use Exam Narrative Exam Narrative: GEN: well nourished, well appearing elderly female, alert and oriented to self and location, patient appears to be in mild distress. HEENT: Atraumatic, pupils are equal round reactive to light, extraocular movements are intact, nares are clear, TMs are clear with no fluid, there is no conjunctival pallor. Throat is clear without any exudates, erythema, tonsillar enlargement or uvular deviation, no facial droop. HEART: Regular rate and rhythm without murmur, clicks, rubs. No carotid bruits, pulses are equal in upper and lower extremities LUNGS:Lungs clear to auscultation, no wheezes, rales, crackles, chest moves symmetrically, no tachypnea or accessory muscleuse. ABD:bowel sounds normal, soft, non-tender, no guarding, rebound, rigidity, no masses noted, no hepatosplenomegaly :No CVA tenderness MSCL: Non-tender, no muscle atrophy, muscles strength 5/5 upper and lower extremities, patient has brace on right lower extremity, full range of motion, gait not tested initially. NEURO:CN 2-12 intact, sensation normal, finger nose finger test normal, heel ascencio test normal Initial Vital Signs Initial Vital Signs: Vital Signs Temperature 98.9 F 07/05/19 09:40 Pulse Rate 92 H 07/05/19 09:40 Respiratory Rate 20 07/05/19 09:40 Blood Pressure 136/63 07/05/19 09:40 Pulse Oximetry 94 07/05/19 09:40 Scores NIH Stroke Scale Level of Conciousness: Alert, keenly responsive Ask month/age: Answers both questions correctly. (patient does not know year) Open/close eyes, close hand: Performs both tasks correctly Best gaze horizontal: Normal Visual carlos: No visual loss Facial palsy: Normal symetrical movement Left arm drift: No drift for full 10 sec Right arm drift: No drift for full 10 sec Left leg drift: No drift for full 10 sec Right leg drift: No drift for full 10 sec Limb ataxia: Absent (does have brace on right lower leg.) Sensory on face/arms/legs: Normal, no sensory loss Best language: No aphasia, normal Dysarthria: Normal Extinction or inattention: No abnormality Total NIH Stroke scale score: 0 Course Orders Ordered: ED Orders 07/05/19 09:45 CT head/brain wo con Stat EKG-12 Lead Stat 07/05/19 09:46 XR chest 1V Stat 07/05/19 09:52 Complete Blood Count AUTO DIFF Stat Comprehensive Metabolic Panel Stat Partial Thromboplastin Time Stat Prothrombin Time INR Stat Troponin & CK Cardiac Panel Stat 07/05/19 11:24 Urine Culture Stat Urine Microscopic Stat Sodium Chloride (Normal Saline 0.9%) 1,000 mls @ 150 mls/hr IV CONT TRINA Last Infusion: 07/05/19 14:26 Dose: 75 mls/hr Documented by: Infusion: 07/05/19 13:52 Dose: 0 mls/hr Documented by: Admin: 07/05/19 12:19 Dose: 150 mls/hr Documented by: ROHAN Ceftriaxone Sodium/Dextrose (Rocephin) 1 gm in 50 mls @ 100 mls/hr IV Q24H TRINA Last Infusion: 07/05/19 13:51 Dose: 0 mls/hr Documented by: Admin: 07/05/19 13:19 Dose: 100 mls/hr Documented by: JOANNE Vital Signs Vital signs: Vital Signs - 8 hr 07/05/19 09:40 07/05/19 10:15 07/05/19 11:35 Temperature 98.9 F Pulse Rate 92 H 76 80 Respiratory Rate 20 17 19 Blood Pressure 136/63 Blood Pressure [Right Arm] 130/70 149/78 H Pulse Oximetry 94 93 94 MDM - Weakness Lab Data Attestation: I reviewed the patient's lab results. Result diagrams: 07/05/19 09:52 07/05/19 09:52 Labs: Lab Results 07/05/19 07/05/19 07/05/19 Range/Units 09:52 09:52 09:52 WBC 11.0 (4.5-11.0) X10^3/uL RBC 4.54 (4.0-5.2) X10^6/uL Hgb 14.0 (12.0-16.0) g/dL Hct 40.7 (36-46) % MCV 89.6 (80-100) fL MCH 30.8 (26-34) PG MCHC 34.4 (30-36) % RDW 14.0 (11.6-14.8) % Plt Count 208 (150-400) X10^3/uL Neut % (Auto) 80.2 H (50-75) % Lymph % (Auto) 13.4 L (25-40) % [place] % (Auto) 4.0 (3-14) % Eos % (Auto) 1.9 L (2-4) % Baso % (Auto) 0.5 (0-2) % Neut # (Auto) 8800 H (0341-0182) /uL Lymph # (Auto) 1500 (6097-8493) /uL [place] # (Auto) 400 (0-900) /uL Eos # (Auto) 200 (0-450) /uL Baso # (Auto) 100 (0-100) /uL PT 11.2 (10.1-12.7) SECONDS INR 1.0 (0.9-1.3) APTT 31 D (26.4-36.2) SECONDS Sodium 134 L (137-145) mmol/L Potassium 3.8 (3.4-5.1) mmol/L Chloride 98 (98-107) mmol/L Carbon Dioxide 28 (22-32) mmol/L BUN 14 (7-17) mg/dL Creatinine 0.75 (0.52-1.04) mg/dL Estimated GFR > 60.0 (>60) mL/min BUN/Creatinine Ratio 18.7 (6-22) Glucose 185 H (80-110) mg/dL Calcium 9.7 (8.4-10.2) mg/dL Total Bilirubin 0.4 (0.2-1.3) mg/dL AST 27 (14-36) IU/L ALT 20 (<35) IU/L Alkaline Phosphatase 81 (38-126) U/L Total Creatine Kinase 67 (30-135) U/L CK-MB (CK-2) TNP CK-MB (CK-2) Rel Index TNP Troponin I < 0.012 (0.01-0.034) ng/mL Total Protein 7.2 (6.3-8.2) g/dL Albumin 4.3 (3.5-5.0) g/dL Globulin 2.9 (1.7-4.1) g/dL Albumin/Globulin Ratio 1.5 (1.0-2.8) Urine RBC (0-5/HPF) Urine WBC (0-5/HPF) Ur Squamous Epith Cells (0-5/HPF) Urine Bacteria (None) Ur Culture Indicated? 07/05/19 Range/Units 11:24 WBC (4.5-11.0) X10^3/uL RBC (4.0-5.2) X10^6/uL Hgb (12.0-16.0) g/dL Hct (36-46) % MCV (80-100) fL MCH (26-34) PG MCHC (30-36) % RDW (11.6-14.8) % Plt Count (150-400) X10^3/uL Neut % (Auto) (50-75) % Lymph % (Auto) (25-40) % [place] % (Auto) (3-14) % Eos % (Auto) (2-4) % Baso % (Auto) (0-2) % Neut # (Auto) (3121-2289) /uL Lymph # (Auto) (4448-8701) /uL [place] # (Auto) (0-900) /uL Eos # (Auto) (0-450) /uL Baso # (Auto) (0-100) /uL PT (10.1-12.7) SECONDS INR (0.9-1.3) APTT (26.4-36.2) SECONDS Sodium (137-145) mmol/L Potassium (3.4-5.1) mmol/L Chloride (98-107) mmol/L Carbon Dioxide (22-32) mmol/L BUN (7-17) mg/dL Creatinine (0.52-1.04) mg/dL Estimated GFR (>60) mL/min BUN/Creatinine Ratio (6-22) Glucose (80-110) mg/dL Calcium (8.4-10.2) mg/dL Total Bilirubin (0.2-1.3) mg/dL AST (14-36) IU/L ALT (<35) IU/L Alkaline Phosphatase (38-126) U/L Total Creatine Kinase (30-135) U/L CK-MB (CK-2) CK-MB (CK-2) Rel Index Troponin I (0.01-0.034) ng/mL Total Protein (6.3-8.2) g/dL Albumin (3.5-5.0) g/dL Globulin (1.7-4.1) g/dL Albumin/Globulin Ratio (1.0-2.8) Urine RBC 1-5/hpf (0-5/HPF) Urine WBC 10-30/hpf H (0-5/HPF) Ur Squamous Epith Cells 1-5 /hpf (0-5/HPF) Urine Bacteria Many (>30) H (None) Ur Culture Indicated? Specimen cultured Urine Dip Bedside Urine Glucose Negative Bedside Urine Bilirubin - Negative Bedside Urine Ketone - Negative Urine Specific [place] 1.015 Bedside Urine Occult Blood - Negative Bedside Urine pH 6.0 Bedside Urine Protein - Negative Bedside Urine Urobilinogen - Negative Bedside Urine Nitrite - Negative Bedside Urine Leukocytes ++ 125 Esterase Imaging Data Chest x-ray: Radiologist Impression: Abbey Baptiste 78 F [address] [address] XRay Report Signed Patient: Abbey Baptiste AMR#: [id number] : 1940cct:[id number] Age/Sex: 78 / FDate of Service: 07/05/19 Loc: ED Accession Number: [id number] Procedure: XR chest 1V Ordering Provider: Myriam Mosley D.O. PROCEDURE: XR CHEST 1V INDICATIONS: weakness TECHNIQUE: One view of the chest was acquired. COMPARISON: [facility], , XR CHEST 1V, 04/01/2019, 14:28. FINDINGS: Surgical changes and devices: None. Lungs and pleura: Minimal increased vascularity. No pleural effusions or pneumothorax. Mediastinum: Mediastinal contours appear normal. Heart size is normal. Bones and chest wall: No suspicious bony lesions. Overlying soft tissues appear unremarkable. IMPRESSION: Minimal increased vascularity. Dictated by: Jessica Martino M.D. on 07/05/2019 at 10:38 Approved by: Jessica Martino M.D. on 07/05/2019 at 10:40 CT scan - head: Radiologist Impression: Abbey Baptiste 78 F [address] [address] [address] Scan Report Signed Patient: Abbey Baptiste AMR#: [id number] : 1Acct:[id number] Age/Sex: 78 / FDate of Service: 07/05/19 Loc: ED Accession Number: [id number] Procedure: CT head/brain wo con Ordering Provider: Myriam Mosley D.O. PROCEDURE: CT HEAD/BRAIN WO CON INDICATIONS: weakness, generalized worsening today TECHNIQUE: Noncontrast 4.5 mm thick angled axial sections acquired from the foramen magnum to the vertex, with coronal and sagittal reformats. For radiation dose reduction, the following was used: automated exposure control, adjustment of mA and/or kV according to patient size. COMPARISON: None. FINDINGS: Image quality: Excellent. CSF spaces: Basal cisterns are patent. No extra-axial fluid collections. The ventricles are symmetric in size and shape. Brain: No intracranial bleeds or masses. There is cerebral volume loss for age, with resultant ventricular and sulcal prominence. There are periventricular and deep white matter chronic small vessel ischemic changes. There is intracranial internal carotid artery and vertebral artery atherosclerosis. Skull and face: Calvarium and visualized facial bones appear intact, without suspicious lesions. Sinuses: Visualized sinuses and mastoids are clear. IMPRESSION: No acute intracranial disease process. Dictated by: Pari Shell MD, PhD on 07/05/2019 at 10:22 Approved by: Pari Shell MD, PhD on 07/05/2019 at 10:24 ECG Data Attestation: I personally reviewed and interpreted this ECG as follows: Prior ECG tracings: available for review Interpretation: Sinus rhythm rate 82 FL 174 QRS 86 and QTC of 450. No ST elevation appreciated except and the 2 there is some J-point elevation. I do not appreciate contiguous leads. Patient has prior from 04/27/2015 which is sinus Gil but has similar changes in the lateral leads. [facility] Narrative Medical decision making narrative: Patient comes in with generalized weakness, no focal changes that would patient appropriate for code stroke or tPA candidate. Her troponin is negative, EKG does not show clear changes. Electrolytes, coags, LFTs and CBC do not show any changes that would clearly cause her weakness. Head CT shows no acute intracranial disease, CXR shows mild increased vascularity but patient has not had any occult changes that suggest fluid overload. poc urine does not show clear changes, sent for microscopy. Patient failed trying to get to bedside commode with two nurses. I was present in the room and she did attempt. Patient at bedside, states she did have some similar symptoms in the past she had had a dose of cough syrup last time this happened the night before. He states she is a little bit more confused than her normal baseline and that he did note that she has been leaning more to the right side today. Patient urine does show possible UTI. Urine culture sent. Discussed with Dr. Patel, asks that we start Rocephin and will admit for observation. Discussed with , patient does have hx of penicillin allergy, he does not recall exact response but states it was not serious or very bad. Discharge Plan Departure Patient Disposition: Admitted as Observation Clinical Impression: Weakness, Acute UTI Discharge Date/Time: 07/05/19 13:53 Referrals: Chin Bales MD [Primary Care Provider] - Admit Date/Time: 07/05/19 13:08 Admit Provider: Juliano Patel
[2019-07-05 09:59] LABS: Add Manual Diff / Slide Review NO; Basophils Absolute Auto 100 /uL (0-100); Basophils Percent Auto 0.5 % (0-2); Eosinophils Absolute Auto 200 /uL (0-450); Eosinophils Percent Auto 1.9 % (2-4); Hematocrit 40.7 % (36-46); Lymphocytes Absolute Auto 1500 /uL (1100-4500); Lymphocytes Percent Auto 13.4 % (25-40); Mean Corpuscular HGB Conc 34.4 % (30-36); Mean Corpuscular Hemoglobin 30.8 PG (26-34); Mean Corpuscular Volume 89.6 fL (80-100); Monocytes Absolute Auto 400 /uL (0-900); Neutrophils Absolute Auto 8800 /uL (1500-7000); Neutrophils Percent Auto 80.2 % (50-75); Platelet Count 208 X10^3/uL (150-400); Red Blood Cell Count 4.54 X10^6/uL (4.0-5.2)
[2019-07-05 10:09] LABS: Prothrombin Time 11.2 SECONDS (10.1-12.7)
[2019-07-05 10:12] LABS: PTT Partial Thromboplastin Tim 31 SECONDS (26.4-36.2)
[2019-07-05 10:13] LABS: Alanine Aminotransferase 20 IU/L (<35); Albumin 4.3 g/dL (3.5-5.0); Albumin Globulin Ratio 1.5 (1.0-2.8); Alkaline Phosphatase 81 U/L (38-126); Aspartate Aminotransferase 27 IU/L (14-36); BUN Creatinine Ratio 18.7 (6-22); Bilirubin Total 0.4 mg/dL (0.2-1.3); Blood Urea Nitrogen 14 mg/dL (7-17); Calcium 9.7 mg/dL (8.4-10.2); Carbon Dioxide 28 mmol/L (22-32); Chloride 98 mmol/L (98-107); Creatine Kinase 67 U/L (30-135); Estimated Glomerular Filt Rate > 60.0 mL/min (>60); Globulin 2.9 g/dL (1.7-4.1); Glucose 185 mg/dL (80-110); HEMOLYSIS < 15 (0-50); Potassium 3.8 mmol/L (3.4-5.1); Sodium 134 mmol/L (137-145); Total Protein 7.2 g/dL (6.3-8.2)
[2019-07-05 10:25] LABS: Troponin I < 0.012 ng/mL (0.01-0.034)
[2019-07-05] MEDS: SODIUM CHLORIDE 0.9% 1,000 ML 150 ML IV (12:19)
[2019-07-05 12:38] LABS: Bacteria Urine Many (>30); Culture Indicated Urine Specimen Cultured; RBC Urine 1-5/HPF (0-5/HPF); Squamous Epithelial Cell Urine 1-5 /HPF (0-5/HPF); WBC Urine 10-30/HPF (0-5/HPF)
[2019-07-05] MEDS: CEFTRIAXONE 1 GM/50 ML FROZ.PIGGY IV (13:19)
--- NOTE | 2019-07-05 14:27 | PC.ADMIT ---
Addendum entered by Matthew Lyons R.N. 07/05/19 14:51: Patient starting to call out and attempt to get oob. Original Note: [email or web address] [facility] [facility] [address] Admission Note: The patient,Abbey Baptiste,78 y/o, was given written information regarding hospital policies, unit procedures and contact persons. Patient's smoking status: Never smoker. Vital Signs - 8 hr 07/05/19 09:40 07/05/19 10:15 07/05/19 11:35 Temperature 98.9 F Pulse Rate 92 H 76 80 Respiratory Rate 20 17 19 Blood Pressure 136/63 Blood Pressure [Right Arm] 130/70 149/78 H Pulse Oximetry 94 93 94 07/05/19 13:31 Temperature Pulse Rate 68 Respiratory Rate 22 Blood Pressure Blood Pressure [Right Arm] 145/73 H Pulse Oximetry 96 Patient admitted to 208. Answers questions appropriately but not reliable as oriented to self only. Stated she was not incont and didn't need brief, but found to be wearing a brief with a brand from home. Patient is pleasant and cooperative. Bed alarm is activated.
[2019-07-05 21:17] LABS: Hemoglobin A1C% w Est Avg Glu 6.6 % (4.0-6.0)
[2019-07-05] MEDS: SODIUM CHLORIDE 0.9% 500 ML 21 ML IV (21:45)
[2019-07-05] MEDS: SENNOSIDES 8.6 MG TABLET PO (21:47)
[2019-07-05] MEDS: ATORVASTATIN 10 MG TABLET PO (21:47)
--- NOTE | 2019-07-05 23:09 | PM.HP.1 ---
History of Present Illness History of Present Illness Date Patient Seen: 07/05/19 Time Patient Seen: 21:00 Chief complaint: Profound Weakness Narrative: Patient has advanced dementia and is unable to provide me with a history nor is she able to follow directions. I was able to get some history from her Gigi Baptiste. Patient has had a long history of progressively worsening dementia. When asked she is unable to tell me where she is but does states she lives at home. She does not remember her birthday ?I am not into birthdays?. states that she has had troubles walking and has persistent problems with her memory. This morning she went to go to the bathroom and apparently was not able to sit up or stand up. She uses a combination walker/wheelchair to ambulate but has not been for the past several days. He states his long she can turn around on her feet he is able to assist her. Prior to the state's stay at home orders she used to go to an adult daycare facility once a week and said that was very beneficial to her. He states that she has had to go to the bathroom quite frequently and normally does not have urinary or bowel incontinence. He states that she does ?leak? and wears a depends. 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 He states she has never had a diagnosis of diabetes. Patient History Medical History (Updated 07/05/19 @ 23:18 by ARMANDO Rogers) Chronic constipation (Chronic) Depression (Chronic) Excessive daytime sleepiness (Chronic) GERD (gastroesophageal reflux disease) (Acute) HTN (hypertension) (Chronic) Long-term memory impairment (Chronic) Neuropathy (Chronic) Obstructive sleep apnea of adult (Chronic ~1999) Primary insomnia (Chronic) Snoring (Chronic) Surgical History Status post laminectomy (Acute) Status post surgery (11/06/15) Status post tubal ligation Family & Social History Family History (Updated 07/05/19 @ 23:14 by ARMANDO Rogers) Mother Bleeding ulcer CVA (cerebral vascular accident) Father Alcoholism Schizophrenia Social History: household members spouse Prior Living Arrangements House caregiver/support person Yes Safety & Behavioral: Feels Safe in Current Yes Environment Been Physically Hurt or No Threatened By a Person Suicidal Ideation Description None Suicide Plan Description No Plan Tobacco & Substance use: Smoking Status Never smoker alcohol intake current alcohol intake frequency holiday/special occasion Substance Use Type does not use Meds Home Medications and Allergies Home Medications Medication Instructions Recorded Confirmed Type hydrochlorothiazide 12.5 mg PO DAILY #0 tab 10/08/15 07/05/19 History Respironics Dreamstation BIPAP #1 ea 03/22/18 07/05/19 History AutoSV acetaminophen 325 mg PO PRN PRN 03/05/19 07/05/19 History atorvastatin [Lipitor] 10 mg PO BEDTIME 03/05/19 07/05/19 History cholecalciferol (vitamin D3) 2,000 unit PO DAILY 03/05/19 07/05/19 History [Vitamin D3] ginkgo biloba 120 mg PO DAILY 03/05/19 07/05/19 History losartan 50 mg PO DAILY 03/05/19 07/05/19 History lutein extract-zeaxanthin ext 1 cap PO QAM 03/05/19 07/05/19 History polyethylene glycol 3350 [Miralax] 17 g PO QPM 03/05/19 07/05/19 History potassium chloride 10 meq PO DAILY 03/05/19 07/05/19 History sennosides-docusate sodium 1 tab-cap PO BEDTIME 03/05/19 07/05/19 History [Senna-S] tolterodine 2 mg PO DAILY 03/05/19 07/05/19 History omeprazole 20 mg PO BID 04/09/19 07/05/19 History sertraline 100 mg PO DAILY 04/09/19 07/05/19 History donepezil 5 mg PO DAILY 07/05/19 07/05/19 History phenazopyridine 100 mg PO TID PRN 07/05/19 07/05/19 History propranolol 60 mg PO DAILY 07/05/19 07/05/19 History Allergies Allergy/AdvReac Type Severity Reaction Status Date / Time olmesartan [From Benicar] Allergy Verified 07/05/19 12:25 Penicillins Allergy Verified 07/05/19 12:23 Sulfa (Sulfonamide Allergy Verified 07/05/19 12:23 Antibiotics) Review of Systems Review of Systems ROS: Yes unobtainable due to mental status Exam Vital Signs (past 8 hours): - 07/05/19 19:07 Temperature 97.3 F L Pulse Rate 67 Respiratory Rate 18 Blood Pressure 153/77 H Pulse Oximetry 93 Oxygen Delivery Method Room Air Oxygen Flow Rate 0 Narrative Exam Narrative: Gen: Alert, pleasantly confused, well-nourished 70 y.o. female, NAD HEENT: normocephalic, atraumatic, conjunctiva clear, sclera non-icteric, oral mucosa pink and moist Neck: supple, full ROM, no JVD, trachea is midline Resp:Non-labored breathing CV: RRR, no murmur or rubs Abd: soft, non-tender, normoactive BTs Skin: no lesions or rashes, dry and intact Neuro: Alert to herself only with significant short and long-term memory impairment, unable to follow directions Extremities: moves all 4 extremities, is ambulatory, negative Pilar?s sign Psyche: normal mood and affect. Objective Labs Result Diagrams: 07/05/19 09:52 07/05/19 09:52 Labs: Laboratory Results - last 24 hr 07/05/19 07/05/19 07/05/19 09:52 09:52 09:52 WBC 11.0 RBC 4.54 Hgb 14.0 Hct 40.7 MCV 89.6 MCH 30.8 MCHC 34.4 RDW 14.0 Plt Count 208 Neut % (Auto) 80.2 H Lymph % (Auto) 13.4 L [place] % (Auto) 4.0 Eos % (Auto) 1.9 L Baso % (Auto) 0.5 Neut # (Auto) 8800 H Lymph # (Auto) 1500 [place] # (Auto) 400 Eos # (Auto) 200 Baso # (Auto) 100 PT 11.2 INR 1.0 APTT 31 D Sodium 134 L Potassium 3.8 Chloride 98 Carbon Dioxide 28 BUN 14 Creatinine 0.75 Estimated GFR > 60.0 BUN/Creatinine Ratio 18.7 Glucose 185 H Hemoglobin A1c Calcium 9.7 Total Bilirubin 0.4 AST 27 ALT 20 Alkaline Phosphatase 81 Total Creatine Kinase 67 CK-MB (CK-2) TNP CK-MB (CK-2) Rel Index TNP Troponin I < 0.012 Total Protein 7.2 Albumin 4.3 Globulin 2.9 Albumin/Globulin Ratio 1.5 Urine RBC Urine WBC Ur Squamous Epith Cells Urine Bacteria Ur Culture Indicated? 07/05/19 07/05/19 09:52 11:24 WBC RBC Hgb Hct MCV MCH MCHC RDW Plt Count Neut % (Auto) Lymph % (Auto) [place] % (Auto) Eos % (Auto) Baso % (Auto) Neut # (Auto) Lymph # (Auto) [place] # (Auto) Eos # (Auto) Baso # (Auto) PT INR APTT Sodium Potassium Chloride Carbon Dioxide BUN Creatinine Estimated GFR BUN/Creatinine Ratio Glucose Hemoglobin A1c 6.6 H Calcium Total Bilirubin AST ALT Alkaline Phosphatase Total Creatine Kinase CK-MB (CK-2) CK-MB (CK-2) Rel Index Troponin I Total Protein Albumin Globulin Albumin/Globulin Ratio Urine RBC 1-5/hpf Urine WBC 10-30/hpf H Ur Squamous Epith Cells 1-5 /hpf Urine Bacteria Many (>30) H Ur Culture Indicated? Specimen cultured Assessment & Plan Assessment & Plan narrative: Abbey Baptiste is a 78-year-old female with a current diagnosis of a urinary tract infection, and a new diagnosis of diabetes type 2 with a hemoglobin A1c of 6.6. Urinary tract infection, acute, present on admission -patient is started on IV ceftriaxone 1 g daily New diagnosis of diabetes type 2, likely chronic, present on admission -initial blood glucoses were elevated in August, normalized than consistently elevated since March of this year -she has been put on ACHS glucose checks and a carb controlled diet with low-dose correctional insulin. -her will need to be educated on glucose testing her daily and administering anti diabetic medications. End of life discussion with . -He indicated that he was thinking about whether not she should be put on hospice. Diabetic management may not be an her picture at this point. -I have ordered a SW consult to discuss discharge planning for her. He stated he would not be able to support her in a long-term as it would wipe all of their's and their children's assets out. Consults: none Patient is observation status as her stay is not likely to exceed 2 midnights. FEN: IV saline lock, carb control diet, BMP in the am. VTE prophylaxis: Bilateral SCDs Dispo: Unknown at this time Code Status: DNR/DNI as discussed with surrogate,
[2019-07-06 04:51] VITALS: BP 154/79; PULSE 70; RESP 18; TEMP 36.7; O2SAT 94
[2019-07-06 07:29] VITALS: BP 151/74; PULSE 68
[2019-07-06] MEDS: LOSARTAN 50 MG TABLET PO (07:29)
[2019-07-06] MEDS: SERTRALINE 50 MG TABLET 100 MG PO (07:29)
[2019-07-06] MEDS: DONEPEZIL 5 MG TABLET PO (07:30)
[2019-07-06] MEDS: TOLTERODINE LA 2 MG CAP PO (07:30)
[2019-07-06] MEDS: PROPRANOLOL ER 60 MG CAPSULE PO (07:30)
[2019-07-06] MEDS: INSULIN ASPART 100 UNIT/ML INSULN PEN SUBCUT ×2 (07:31→13:14)
[2019-07-06 07:33] VITALS: BP 151/74; PULSE 67; RESP 18; TEMP 37.3; O2SAT 94
[2019-07-06 07:53] LABS: Add Manual Diff / Slide Review NO; Basophils Absolute Auto 100 /uL (0-100); Basophils Percent Auto 0.8 % (0-2); Eosinophils Absolute Auto 100 /uL (0-450); Eosinophils Percent Auto 1.2 % (2-4); Hematocrit 41.5 % (36-46); Hemoglobin 14.4 g/dL (12.0-16.0); Lymphocytes Absolute Auto 1400 /uL (1100-4500); Lymphocytes Percent Auto 14.1 % (25-40); Mean Corpuscular HGB Conc 34.7 % (30-36); Mean Corpuscular Hemoglobin 31.1 PG (26-34); Mean Corpuscular Volume 89.8 fL (80-100); Monocytes Absolute Auto 500 /uL (0-900); Monocytes Percent Auto 4.7 % (3-14); Neutrophils Absolute Auto 8200 /uL (1500-7000); Neutrophils Percent Auto 79.2 % (50-75); Platelet Count 213 X10^3/uL (150-400); Red Blood Cell Count 4.62 X10^6/uL (4.0-5.2); Red Cell Distribution Width 14.2 % (11.6-14.8); White Blood Cell Count 10.3 X10^3/uL (4.5-11.0)
[2019-07-06 08:03] LABS: BUN Creatinine Ratio 15.3 (6-22); Blood Urea Nitrogen 9 mg/dL (7-17); Calcium 9.8 mg/dL (8.4-10.2); Carbon Dioxide 27 mmol/L (22-32); Chloride 100 mmol/L (98-107); Estimated Glomerular Filt Rate > 60.0 mL/min (>60); Glucose 149 mg/dL (80-110); HEMOLYSIS < 15 (0-50); Potassium 3.9 mmol/L (3.4-5.1); Sodium 136 mmol/L (137-145)
--- NOTE | 2019-07-06 09:59 | PC.NURSE ---
Patient is alert to name and birthdate, pleasant, awake, fiddling with gown and IV site though IV site is wrapped and intact. Skin is CDI, heels are blanchable, patient denies pain, SOB, chest pain, numbness or tingling in the extremities. Patient on room air. ALATNA, wearing glasses. Patient able to lift extremities in the bed when asked, two person assist to BSC. Refusing SCD's. PT in to see patient at this time. Patient remains 1:1 with sitter.
--- NOTE | 2019-07-06 11:10 | OT.IP.EVAL ---
Past Medical History (Last Reviewed 07/05/19 @ 23:13 by ARMANDO Rogers) Chronic constipation (Chronic) Depression (Chronic) Excessive daytime sleepiness (Chronic) GERD (gastroesophageal reflux disease) (Acute) HTN (hypertension) (Chronic) Long-term memory impairment (Chronic) Neuropathy (Chronic) Obstructive sleep apnea of adult (Chronic ~1999) Primary insomnia (Chronic) Snoring (Chronic) Surgical History (Last Reviewed 07/05/19 @ 23:13 by ARMANDO Rogers) Status post laminectomy (Acute) Status post surgery (11/06/15) Status post tubal ligation Occupational Therapy Inpatient Evaluation/Re-Eval M1 PT/OT-IP Prior Functional Status Start: 07/06/19 08:49 Freq: NEEDED Status: Active Protocol: Document 07/06/19 14:20 CGR (Rec: 07/06/19 14:34 CGR [email or web address]) Medical Review Prior Functional Status Medical History Reviewed Yes Diet/Fluid Consistency Regular Communication Pt has advanced dementia Mobility and Gait Per P.T. conversation with pt' s spouse, Park Yu ambulates household distances with a 4WW but Gigi always follows with a manual wheelchair due to history of falls. According to Gigi, pt was able to transfer w/c <> toilet with SBA to CGA using grab bars. She has a lift recliner which is her most frequently-used chair. Gigi indicated Park performs better with her braces on to address her right foot drop. Activities of Daily Living and IADL's Pt's spouse assists with all dressing tasks and showering. He states Park has had increased difficulty with maneuvering in the shower recently and he has resorted to sponge baths over the past few weeks. Gigi states Park has been able to transfer for toileting with SBA/CGA and that she performs her own hygiene. Prior Functional Level (Other details) Pt's spouse states he cuts up her food but that she is otherwise independent with feeding without overt signs of aspiration. Prior to [facility] stay home, stay healthy orders, pt was spending one day per week at [facility], providing adult day care for Park and respite for Gigi. Park has also previously been under the care of [facility] but is not currently on their caseload. Social History Household Members spouse Living Arrangements House Number of Floors (Floors) One Floor Number of Stairs To Enter/Railing? No stairs Home Environment High Toilet,Walk in Shower Home Equipment Four Wheel Walker,Manual Wheelchair,Raised Toilet Seat w/Armrests,Shower Seat with Backrest,Hand Held Shower,Lift Recliner,Grab Bars Near Toilet,Grab Bars In Shower Additional Social History Comment Pt's states as long as Park is able to transfer, he is able to help her at home. M2 OT-IP Current Condition Start: 07/06/19 14:20 Freq: Status: Active Protocol: Document 07/06/19 14:20 CGR (Rec: 07/06/19 14:34 CGR [email or web address]) Occupational Therapy Current Condition Current Condition Evaluation Date 07/06/19 Treatment Diagnosis UTI and new dx of DM Diagnosis Onset Date 07/05/19 M3 OT- IP Subjective and Pain Start: 07/06/19 14:20 Freq: Status: Active Protocol: Document 07/06/19 14:20 CGR (Rec: 07/06/19 14:34 CGR [email or web address]) OT- Subjective Occupational Therapy Visit Type Type Initial Evaluation Visit Start Time 10:41 Visit Stop Time 11:10 Total Visit Minutes 29 Notes co-treat with p.t. OT Pain Assessment Pain Present Pain Present Pain Reported Location right groin Scale Used unable to rate Management Techniques Modification of Treatment,Re- positioning M4 OT- IP ADL's Start: 07/06/19 14:20 Freq: Status: Active Protocol: Document 07/06/19 14:20 CGR (Rec: 07/06/19 14:34 CGR [email or web address]) OT [id number] Comments OT Self-Feeding Comments Not meal time OT ADL-Grooming General Evaluation Grooming Ability Standby Assistance Areas Needing Assistance Combing/Brushing Hair,Face Washing Comments OT Grooming Comments seated in chair. OT ADL-Oral Care Comments Oral Care Comments Not performed on this date. OT ADL-Dressing General Eval Lower Body Dressing Ability Total Assistance Areas Needing Assistance Socks OT ADL-Toileting Comments OT Toileting Comments Not performed, per aide, pt has recently transfered to [facility] OT ADL-Bathing Comments OT Bathing Comments Not performed in this session. M5 OT- IP IADL's Start: 07/06/19 14:20 Freq: Status: Active Protocol: Document 07/06/19 14:20 CGR (Rec: 07/06/19 14:34 CGR [email or web address]) OT-Instrumental Activities of Daily Living Deficits IADL Deficits Identified Deficits Home Safety Awareness Awareness of Need for Assistance at Home Decreased Awareness Ability to Problem Solve Emergency Unable to Problem Solve Situations Medication Management Medication Management Caregiver Administers Money Management Money Management Caregiver Provides Assistance Meal Preparation Meal Preparation Caregiver Provides Assist Medical Records Custodian Medical Records Custodian Caregiver Provides Assist Driving Driving Comments Pt does not drive. M6 OT- IP Functional Cognition Start: 07/06/19 14:20 Freq: Status: Active Protocol: Document 07/06/19 14:20 CGR (Rec: 07/06/19 14:34 CGR [email or web address]) Cognitive Factors Limiting Selfcare Function Cognitive Ability Level of Alertness Alert,Confusional State Patient Orientation Name Attention Span Ability Capable of Focused Attention, Unable to Sustain Attention Ability to Follow Commands Able to Follow One Step Commands with Increased Time, Able to Follow One Step Commands with Repetition Memory Description Immediate Impaired,Short Term Impaired,Snf Intact, Working Impaired Safety Awareness Underestimates Need for Assistance Problem Solving Ability Unable to Identify Errors, Needs Assist to Identify Solutions Cognitive Comments Cognitive Assessment Comments Pt with advanced dementia OT- Vision and Hearing OT- Hearing Assessment OT- Hearing Assessment WFL OT- Vision Assessment Visual Attentiveness WFL Occular Pursuits WFL M7 OT- IP Mobility and Balance Start: 07/06/19 14:20 Freq: Status: Active Protocol: Document 07/06/19 14:20 CGR (Rec: 07/06/19 14:34 CGR [email or web address]) OT- Bed Mobility Assessment Supine to Sit Supine to Sit Assist Maximum Assistance,Head of Bed Elevated Scooting Scooting to Edge of Bed Maximum Assistance,Head of Bed Elevated,Bedrails OT-Transfer Assessment Sit to and From Stand Sit to and from Stand Maximum Assistance,2 Person Assistance Transfers Transfer Ability Maximum Assistance,2 Person Assistance Technique Transfer Destination Bed,Chair Transfer Technique Stand Step Pivot Devices Transfer Assistive Devices Bed Rail,Gait Belt,Front Wheeled Walker Comments Mobility Comments Pt needed extra time and assist with use of the walker and with cuing. Pt was able to scoot back in chiar without assist. OT- Balance Assessment Sitting Balance and Reactions Static Sitting Balance Ability Poor Dynamic Sitting Balance Ability Poor M8 OT- IP Objective Assessments Start: 07/06/19 14:20 Freq: Status: Active Protocol: Document 07/06/19 14:20 CGR (Rec: 07/06/19 14:34 CGR [email or web address]) OT Gross Range of Motion Upper Extremity Range of Motion Assessment Bilaterally Impaired ROM Impairments R shld 0-75 L shld 0-90 OT Strength Comments Strength Comments grossly 4/5 to hands and arms. shld's not tested. OT- Coordination Assessment Upper Extremity Finger to Nose Test Bilateral UE Impaired Finger Tapping Test Bilateral UE Impaired Comments Coordination Comments Pt unable to get finger to nose. Nursing reported similar experience with brushing teeth this AM. OT-Muscle Tone Assessment Muscle Tone WNL Yes OT Sensation Assessment Edema Edema Absent M9 OT- IP Assessment and Plan Start: 07/06/19 14:20 Freq: Status: Active Protocol: Document 07/06/19 14:20 CGR (Rec: 07/06/19 14:34 CGR [email or web address]) OT Summary Assessment and Plan Potential Rehabilitation Potential Fair Analytic Complexity at Evaluation Moderate Summary OT Impairments Pain,Balance,Coordination, Functional Cognition, Functional Mobility,Grooming, Dressing,Toileting,Bathing, Toilet Transfers,Shower Transfers,Activity Tolerance Progress Towards Goals Slow Progress due to Medical Issues,Slow Progress due to Activity Tolerance,Slow Progress due to Cognition Assessment Summary Pt presents as a mod complexity evaluation after being admitted for UTI. Pt had difficulty following commands consistantly and all mobility . Pt is mobile at home and may progress with mobility over the next few days as UTI clears. Recommend d/c to SNF if d/c at this time. Otherwise it is likely that pt will progress to a discharge home with where she would likley do better given her dementia. Goals Self-Feeding Goal Independent Grooming Goal Standby Assistance Toileting Goal Standby Assistance,Contact Guard Assistance Toilet Transfer Goal Standby Assistance,Contact Guard Assistance Days to Meet Goals 10 Frequency of Treatment Frequency Of Treatment Once a Day Treatment Plan OT Treatment Plan ADL Training,Functional Cognition Training,Functional Mobility,Patient/Family Education,Discharge Planning Other Treatment Recommendations and Next Reassess pt's ability to Treatment Focus mobilize, ADLs seated vs standing depending on ability. Assess feeding. Discharge Recommendations OT Discharge Recommendations Home with 24/7 Assist,SNF Rehab Home Equipment Needs TBD Transportation Needs at Discharge Private Vehicle
--- NOTE | 2019-07-06 11:19 | CM.DANOTE ---
Addendum entered by Isabela Peacock R.N. 07/06/19 14:10: Spoke to Uma at [facility]. Stated that she will need to review with team, and updates if patient continues to need one on one, which they can't provide. At this time, she is a max assist of two, and is recommended to go to skilled according to P.T. Otto in [place] stated that patient will be inpatient status as of today. Original Note: DCP: Case received, EMR reviewed. Patient has dementia, and was able to contact , Gigi, who is her primary caregiver. Spoke to him via phone, and introduced self and role. Was able to obtain information on patient regarding her baseline activity status at home. DCP assessment completed with information currently available. Patient is a 78 year old female who admitted yesterday afternoon to the care of the hospitalist team. PCP: Dr. Bales. Payer: confirmed: Medicare/[employer]. Patient came to the hospital via ambulance secondary to increased weakness, and not being able to ambulate. Patient has history of dementia, and lives with her , Gigi, who is her primary caregiver. Patient holds current diagnosis of UTI. She is also noted to have diabetes, as new diagnosis. Was able to speak to patient's , secondary to her dementia. He stated that she normally uses a walker at home, and stated that she has fallen at home before. Stated that he has had to call EMS at times to assist getting her up off of the floor. Patient has been using a walker for the last 9 years, due to her history of having a laminectomy secondary to spinal stenosis. stated that he normally gives patient bed baths, is hard to get her into showers. He prepares her meals for her as well. Stated that she can normally ambulate at her baseline with her waker, but needs cueing. Confirmed with son that he has a son that lives in [place]. Stated that he can't afford to put his in a memory care facility. He did stated that he has used [facility] with her before, and was pleased with their care. Discussed [facility] if patient becomes inpatient status, which is being reviewed at this time. According to notes, patient is a two person transfer. He mentioned, as long as her insurance pays for it, would be ok, and would like her here in [place] if possible. He also stated, if she does get stronger, would rather she go home in her familiar surroundings with home health, and he would be willing to come in for transfer training. Went ahead and sent referral over to July at [facility], and she will review. Let her know that patient is OBS, but could potentially change to inpatient status. Patient will also be working with P.T. P: DCP to continue to follow and be available for resources needed. Will see if she becomes inpatient status. Isabela Peacock RN/Sheriffs Detective
--- NOTE | 2019-07-06 12:04 | PT.IIE ---
Surgical History (Last Reviewed 07/05/19 @ 23:13 by ARMANDO Rogers) Status post laminectomy (Acute) Status post surgery (11/06/15) Status post tubal ligation Medical History (Last Reviewed 07/05/19 @ 23:13 by ARMANDO Rogers) Chronic constipation (Chronic) Depression (Chronic) Excessive daytime sleepiness (Chronic) GERD (gastroesophageal reflux disease) (Acute) HTN (hypertension) (Chronic) Long-term memory impairment (Chronic) Neuropathy (Chronic) Obstructive sleep apnea of adult (Chronic ~2000) Primary insomnia (Chronic) Snoring (Chronic) Physical Therapy Inpatient Evaluation/Re-Eval M1 PT/OT-IP Prior Functional Status Start: 07/06/19 08:49 Freq: NEEDED Status: Active Protocol: Document 07/06/19 11:20 AW (Rec: 07/06/19 12:04 AW [id number]) Medical Review Prior Functional Status Medical History Reviewed Yes Diet/Fluid Consistency Regular Communication Pt has advanced demential Mobility and Gait Per conversation with pt's spouse, Gigi, Park ambulates household distances with a 4WW but Gigi always follows with a manual wheelchair due to history of falls. According to Gigi, pt was able to transfer w/c <> toilet with SBA to CGA using grab bars. She has a lift recliner which is her most frequently-used chair. Gigi indicated Park performs better with her braces on to address her right foot drop. Activities of Daily Living and IADL's Pt's spouse assists with all dressing tasks and showering. He states Park has had increased difficulty with maneuvering in the shower recently and he has resorted to sponge baths over the past few weeks. Gigi states Park has been able to transfer for toileting with SBA/CGA and that she performs her own hygiene. Prior Functional Level (Other details) Pt's spouse states he cuts up her food but that she is otherwise independent with feeding without overt signs of aspiration. Prior to [facility] stay home, stay healthy orders, pt was spending one day per week at local [facility], providing adult day care for Park and respite for Gigi. Park has also previously been under the care of [facility] but is not currently on their caseload. Social History Household Members spouse Living Arrangements House Number of Floors (Floors) One Floor Number of Stairs To Enter/Railing? No stairs Home Environment High Toilet,Walk in Shower Home Equipment Four Wheel Walker,Manual Wheelchair,Raised Toilet Seat w/Armrests,Shower Seat with Backrest,Hand Held Shower,Lift Recliner,Grab Bars Near Toilet,Grab Bars In Shower Additional Social History Comment Pt's states as long as Park is able to transfer, he is able to help her at home. M2 PT-IP Current Condition Start: 07/06/19 08:49 Freq: NEEDED Status: Active Protocol: Document 07/06/19 11:20 AW (Rec: 07/06/19 12:04 AW [id number]) Physical Therapy Current Condition Current Condition Evaluation Date 07/06/19 Treatment Diagnosis UTI, dementia, difficulty in walking Onset Date 07/05/19 M3 PT-IP Subjective Start: 07/06/19 08:49 Freq: NEEDED Status: Active Protocol: Document 07/06/19 11:20 AW (Rec: 07/06/19 12:04 AW [id number]) Subjective Physical Therapy Visit Type Type Initial Evaluation Visit Start Time 10:42 Visit Stop Time 11:02 Total Visit Minutes 20 Notes Co-eval with OT CJ Physical Therapy Visit Comments Patient Comments Pt required some encouragement but was willing to participate with therapy Patient Goals Unable to obtain Therapy Pain Assessment Pain When Pain Assessed During Mobility Pain Present Pain Present Pain Reported Location right groin Pain Behaviors Guarding,Wincing Pain Management Techniques Distraction,Re-positioning M4 PT-IP Mobility and Gait Start: 07/06/19 08:49 Freq: NEEDED Status: Active Protocol: Document 07/06/19 11:20 AW (Rec: 07/06/19 12:04 AW [id number]) PT-Bed Mobility Assessment Supine to Sit Supine to Sit Maximum Assistance,1 Person Assistance,Head of Bed Elevated,Bedrails Scooting Scooting to Edge of Bed Moderate Assistance PT-Transfer Assessment Sit to and From Stand Sit to and from Stand Maximum Assistance,2 Person Assistance,Use of Upper Extremities Equipment Transfer Assistive Device Gait Belt,Front Wheeled Walker Orthotic/Prosthetic Devices or Brace: No Transfers Transfer Destination Chair Transfer Technique Stand Step Pivot Transfer Ability Level of Assist Maximum Assistance,2 Person Assistance Comments Mobility Comments Pt encountered lying in bed. She required max cueing and max A x 1 to complete supine to sit. In sitting, max cues required to scoot toward EOB. Pt required mod-max A for sitting balance to counter retropulsion, including rocking to encourage forward weight shift. Sit to stand was completed with max A x 2 using FWW and verbal/tactile cues for hand placement on walker. Weight shifting required mod - max A and facilitation in order to step pivot toward the chair. She sat with extremely poor eccentric control, requiring max A. Once seated on the chair, she was able to scoot her hips toward the back of the chair SBA and stated she was grateful to be sitting up. PT left pt with OT and notified pt's DEPUTY COMMISSIONER/sitter that therapy would conclude soon. Gait Assessment Gait Gait Assistance Required: Maximum Assistance,2 Person Assist Distance (Feet) 2 Assistive Devices Assistive Device Gait Belt,Front Wheeled Walker Orthotic/Prosthetic Devices or Brace: No Gait Deviations General Gait Pattern Antalgic,Decreased Stride Length,Decreased Feet Clearance,Flexed Trunk,Wide Based Gait Factors Limiting Gait Function Factors Limiting Gait Function Abnormal Tonal Influences, Decreased Activity Tolerance, Decreased Strength,Difficulty Following Directions,Limited Range of Motion,Poor Balance, Poor Safety Awareness Comments Gait Comments Pt's right foot habitually plantar flexes and inverts due to pre-existing foot drop which began following laminectomy in 2008. Pt did not wear brace for transfer today but should be evaluated at next session with this device which is in the room. Stair Climbing Assessment Comments Stair Climbing Comments Not assessed. No stairs at home PT-Balance Assessment Sitting Balance and Reactions Static Sitting Balance Ability Poor Dynamic Sitting Balance Ability Poor Standing Balance and Reactions Static Standing Balance Ability Poor Dynamic Standing Balance Ability Poor Device Used FWW M5 PT-IP Objective Assessments Start: 07/06/19 08:49 Freq: NEEDED Status: Active Protocol: Document 07/06/19 11:20 AW (Rec: 07/06/19 12:04 AW [id number]) Orientation Orientation/Cognition Level of Alertness Confusional State Orientation Name Language Function Ability Hard of Hearing Safety Awareness Decreased Safety Awareness Memory Description Short Term Impaired,Estimator Printing Impaired Comments Pt with advanced dementia. She was oriented to self and knew the name of the street where she resides but was otherwise not oriented. Gross Range of Motion Lower Extremity ROM Assessment Right Impaired Impairments Lacking DF and eversion R foot Strength Lower Extremity Strength Assessment Bilaterally Impaired Hip 4-/5 Knee L 4/5; R 4-/5 Ankle L4-/5; R 3-/5 Sensation Assessment Comments Sensation Comments Unable to assess due to cognition. M6 PT-IP Treatment Start: 07/06/19 08:49 Freq: NEEDED Status: Active Protocol: Document 07/06/19 11:20 AW (Rec: 07/06/19 12:04 AW [id number]) Physical Therapy Treatment Education Education Provided Safety M7 PT-IP Assessment and Plan Start: 07/06/19 08:49 Freq: NEEDED Status: Active Protocol: Document 07/06/19 11:20 AW (Rec: 07/06/19 12:04 AW [id number]) PT Summary Assessment and Plan Potential Rehabilitation Potential Fair Status of Condition at Evaluation Evolving Summary Impairments Pain,ROM,Strength,Balance, Cognition,Bed Mobility, Transfers,Gait,Activity Tolerance Assessment Summary Park is a 78 yo woman seen for PT evaluation upon admission with acute UTI and new diagnosis of DMII. She has advanced dementia. Per phone conversation with her , Gigi, pt was able to ambulate household distances with her 4WW and to transfer with SBA/ CGA. She has been requiring extensive assist with dressing and bathing and set up assist for other ADL's and feeding. On evaluation, pt required max A x 1-2 for all mobility. She responds appropriately to commands for bed mobility but had difficulty executing in weightbearing which was attributed to strength impairment and decreased activity tolerance. Given pt's cognitive status, she may ultimately do best in her familiar home environment, but she will require SNF rehab to address strength deficits and improve safe functional mobility/independence prior to return home where her states he is able to care for her as long as she is able to transfer. Goals Bed Mobility Goal Contact Guard Assistance Transfer Goal Minimal Assistance,Front Wheeled Walker Gait Goal Minimal Assistance,Front Wheel Walker Gait Distance 20 Days to Meet Goals 10 Frequency of Treatment Frequency Of Treatment Once a Day Treatment Plan Physical Therapy Treatment Plan Bed Mobility Training,Transfer Training,Gait Training, Therapeutic Exercise,Balance Retraining,Discharge Planning, Neuromuscular Re-ed, Coordination Retraining Other Recommendations and Next Treatment bed mobility; sit to stand; Focus assess transfer with braces; Recommendations To Nursing Amount of Assist Needed 2 Person Assist,Mechanical Lift Discharge Recommendations PT Discharge Recommendations SNF Rehab Transportation Needs at Discharge Wheelchair/Cabulance
[2019-07-06] MEDS: CEFTRIAXONE 1 GM/50 ML FROZ.PIGGY IV (13:17)
[2019-07-06 15:17] VITALS: BP 150/92; PULSE 85; RESP 20; TEMP 37.4; O2SAT 93
--- NOTE | 2019-07-06 15:26 | PM.PN.1 ---
Subjective Subjective Date Patient Seen: 07/06/19 Time Patient Seen: 15:27 Interval history: Abbey Baptiste is a 78 year old female with PMH of dementia, HTN, HLD who presented with worsening weakness over the past few days as per reports by her . She was found to have a UTI and was started on IV ceftriaxone. Given her UTI, recent change in functional status per , and new diagnosis of diabetes patient was changed to an inpatient today. Likely plan for long term upon discharge. Exam Vital Signs (past 8 hours): - 07/06/19 07:29 07/06/19 07:33 Temperature 99.2 F Pulse Rate 68 67 Respiratory Rate 18 Blood Pressure 151/74 H 151/74 H Pulse Oximetry 94 Oxygen Delivery Method Room Air Oxygen Flow Rate 0 Narrative Exam Narrative: GENERAL APPEARANCE: Well developed, well nourished, in no acute distress. SKIN: Inspection of the skin reveals no rashes, ulcerations or petechiae. HEENT: Normocephalic atraumatic, extraocular muscles are intact, oropharynx is clear and mucous membranes are moist, neck is supple without adenopathy NECK: Supple and symmetric. There was no thyroid enlargement, and no tenderness, or masses were felt. CHEST: Normal AP diameter and normal contour without any kyphoscoliosis. LUNGS: Auscultation of the lungs revealed no wheezes, rhonchi, or rales. CARDIOVASCULAR: There was a regular rate and rhythm without any murmurs, gallops, rubs. Peripheral pulses were 2+ and symmetric. ABDOMEN: Soft and nontender with normal bowel sounds. No ascites was noted. MUSCULOSKELETAL: There was no tenderness or effusions noted. Muscle strength and tone were normal. EXTREMITIES: No cyanosis, clubbing or edema. NEUROLOGIC: Alert and oriented x 1. Normal affect. cognitive impairment is evident. Objective Labs Result Diagrams: 07/06/19 07:42 07/06/19 07:42 Labs: Laboratory Results - last 24 hr 07/05/19 07/06/19 07/06/19 09:52 07:42 07:42 WBC 10.3 RBC 4.62 Hgb 14.4 Hct 41.5 MCV 89.8 MCH 31.1 MCHC 34.7 RDW 14.2 Plt Count 213 Neut % (Auto) 79.2 H Lymph % (Auto) 14.1 L Creek % (Auto) 4.7 Eos % (Auto) 1.2 L Baso % (Auto) 0.8 Neut # (Auto) 8200 H Lymph # (Auto) 1400 Creek # (Auto) 500 Eos # (Auto) 100 Baso # (Auto) 100 Sodium 136 L Potassium 3.9 Chloride 100 Carbon Dioxide 27 BUN 9 Creatinine 0.59 Estimated GFR > 60.0 BUN/Creatinine Ratio 15.3 Glucose 149 H Hemoglobin A1c 6.6 H Calcium 9.8 Assessment & Plan Assessment & Plan narrative: Abbey Baptiste is a 78 year old female with PMH of dementia, HTN, HLD who presented with worsening weakness over the past few days as per reports by her . She was found to have a UTI and was started on IV ceftriaxone. 1. Toxic metabolic encephalopathy, acute, present on admission -likely secondary to urinary tract infection. Has been started on IV antibiotics and will need to assess response. -this may also represent progressive dementia, however there has been an acute change per the , and this will take time to evaluate. 2. Urinary tract infection, acute, present on admission -patient is started on IV ceftriaxone 1 g daily 3. New diagnosis of diabetes type 2, likely chronic, present on admission -initial blood glucoses were elevated in August, normalized than consistently elevated since March of this year -she has been put on [facility] glucose checks and a carb controlled diet with low-dose correctional insulin. -A1c of 6.6. Given age of 78, chronic comorbidities including hypertension, hyperlipidemia, and dementia would not initiate outpatient oral therapy at this time. 4. Hypertension, present on admission, chronic -continue home medications 5. Hyperlipidemia, chronic, present on admission -continue home statin 6. Advanced dementia, present on admission -can continue home donepezil Code: DNR Dispo: Changed to inpatient status, likely discharge to long term facility pending PT/OT evaluations. was interested in transitioning to comfort care given decline in her mental status. However, will need to see if this acute changes due to her urinary tract infection and will take time to assess whether she recovers are not. Likely will discharge to long term facility. If there is no improvement in her status the is definitely interested in hospice consultation.
[2019-07-06 17:00] VITALS: O2SAT 96
[2019-07-06] MEDS: ATORVASTATIN 10 MG TABLET PO (19:45)
[2019-07-06] MEDS: SENNOSIDES 8.6 MG TABLET PO (19:45)
[2019-07-06] MEDS: polyethylene glycoL 3350 17 GM POWD.PACK PO (19:47)
--- NOTE | 2019-07-06 22:47 | PC.NURSE ---
Evening note: Park sat in recliner until after dinner, pleasantly confused but cooperative with care & friendly to staff. Sometimes hands are fidgety, IV to left wrist infusing with no difficulty, protected with coban wrap. STEAM ROOM ATTENDANT sitting at bedside for 1:1 supervision. VS stable. Transferred via [id number] lift to BS, voided 100 ml urine. Brief dry. Taking in PO fluids tonight, applejuice provided as well as protein drink. Transferred to BSC 2nd time, patient did not void, brief dry. Bladder scan = 89 ml. I notified Arpita ROBERTS of low urine output, she ordered to increase IVF from TKO to 75 ml/hour which was done. Pt sleeping, snoring lightly, no signs of discomfort or distress. Alarm active for safety.
[2019-07-06 23:00] VITALS: O2SAT 93
[2019-07-07 02:50] VITALS: BP 168/79; PULSE 74; RESP 16; TEMP 36.3; O2SAT 92
[2019-07-07] MEDS: SERTRALINE 50 MG TABLET 100 MG PO (07:55)
[2019-07-07] MEDS: LOSARTAN 50 MG TABLET PO (07:55)
[2019-07-07] MEDS: TOLTERODINE LA 2 MG CAP PO (07:56)
[2019-07-07] MEDS: DONEPEZIL 5 MG TABLET PO (07:57)
[2019-07-07] MEDS: PROPRANOLOL ER 60 MG CAPSULE PO (07:57)
[2019-07-07] MEDS: INSULIN ASPART 100 UNIT/ML INSULN PEN SUBCUT ×2 (07:58→16:44)
[2019-07-07 08:00] VITALS: BP 144/79; PULSE 66; RESP 18; TEMP 37.2; O2SAT 92
--- NOTE | 2019-07-07 09:56 | P.PN_ITS ---
Subjective Subjective Date Patient Seen: 07/07/19 Time Patient Seen: 11:18 Interval history: Abbey Baptiste is a 78 year old female with PMH of dementia, HTN, HLD who presented with worsening weakness over the past few days as per reports by her . She was found to have a UTI and was started on IV ceftriaxone. She is medically ready for discharge to [facility]. She denies complaints today other than continued weakness. Exam Vital Signs (past 8 hours): - 07/07/19 02:50 07/07/19 08:00 Temperature 97.3 F L 98.9 F Pulse Rate 74 66 Respiratory Rate 16 18 Blood Pressure 168/79 H 144/79 H Pulse Oximetry 92 92 Oxygen Delivery Method Room Air Oxygen Flow Rate 0 Narrative Exam Narrative: GENERAL APPEARANCE: Well developed, well nourished, in no acute distress. SKIN: Inspection of the skin reveals no rashes, ulcerations or petechiae. HEENT: Normocephalic atraumatic, extraocular muscles are intact, oropharynx is clear and mucous membranes are moist, neck is supple without adenopathy NECK: Supple and symmetric. There was no thyroid enlargement, and no tenderness, or masses were felt. CHEST: Normal AP diameter and normal contour without any kyphoscoliosis. LUNGS: Auscultation of the lungs revealed no wheezes, rhonchi, or rales. CARDIOVASCULAR: There was a regular rate and rhythm without any murmurs, gallops, rubs. Peripheral pulses were 2+ and symmetric. ABDOMEN: Soft and nontender with normal bowel sounds. No ascites was noted. MUSCULOSKELETAL: There was no tenderness or effusions noted. Muscle tone was normal. Strength +5/5 in bilateral upper and lower extremities however RUE is weaker compared to the L (Chronic) EXTREMITIES: No cyanosis, clubbing or edema. NEUROLOGIC: Alert and oriented x 2. Normal affect. cognitive impairment is evident. Objective Labs Result Diagrams: 07/06/19 07:42 07/06/19 07:42 Assessment & Plan Assessment & Plan narrative: Abbey Baptiste is a 78 year old female with PMH of dementia, HTN, HLD who presented with worsening weakness over the past few days as per reports by her . She was found to have a UTI and was started on IV ceftriaxone. 1. Toxic metabolic encephalopathy, acute, present on admission -likely secondary to urinary tract infection. Has been started on IV antibiotics. There is some improvement today and patient is now slightly more oriented. -this may also represent progressive dementia, however there has been an acute change per the , and this will take time to evaluate. 2. Urinary tract infection, acute, present on admission -patient is started on IV ceftriaxone 1 g daily -patient with encephalopathy as noted above as well as reported urinary frequency. 3. New diagnosis of diabetes type 2, likely chronic, present on admission -initial blood glucoses were elevated in August, normalized than consistently elevated since March of this year -she has been put on [facility] glucose checks and a carb controlled diet with low- dose correctional insulin. -A1c of 6.6. Given age of 78, chronic comorbidities including hypertension, hyperlipidemia, and dementia would not initiate outpatient oral therapy at this time. 4. Hypertension, present on admission, chronic -continue home medications 5. Hyperlipidemia, chronic, present on admission -continue home statin 6. Advanced dementia, present on admission -can continue home donepezil Code: DNR Dispo: Changed to inpatient status, likely discharge to [facility] facility. was interested in transitioning to comfort care given decline in her mental status. However, will need to see if this acute changes due to her urinary tract infection and will take time to assess whether she recovers are not. Likely will discharge to [facility] facility. If there is no improvement in her status the is definitely interested in hospice consultation.
--- NOTE | 2019-07-07 10:50 | CM.DPC ---
Addendum entered by Isabela Peacock R.N. 07/07/19 15:01: Left a message for Unique in admissions at [facility] to see if she has reviewed patient. Left a message with Anastacia at [facility] as well, to see if she has been able to review patient, as well. Addendum entered by Isabela Peacock R.N. 07/07/19 12:16: Richard in admissions at [facility] stated that they can't accept patient since she has dementia. Stated that their patients are automatically on isolation when they arrive. At this time, [facility] is reviewing, as well as [facility]. Original Note: DCP Cont: Called [facility] to follow up to see if they can accept patient tomorrow, as was discussed in team rounds. They mentioned that they are full on female beds, can take another patient on Monday. Called and spoke to patient's son, Gigi, and gave him an update. Asked him if referrals can be sent over to other facilities, [facility] in and [facility], and [facility]. stated, this would be ok. Called Mckenna at [facility] at [facility]. She stated that she can review. Faxed over to [facility] as well, and let Dee know in admissions that this would be faxed as well. They do have female beds. Sent referral over to [facility] in , and spoke to Anastacia. They are taking some admissions, is on a case by case basis. P: Referrals were faxed over to [facility], both [facility]. Will follow up after review. Isabela Peacock RN/Imaging Scheduler
[2019-07-07] MEDS: SODIUM CHLORIDE 0.9% 500 ML 75 ML IV (12:37)
[2019-07-07] MEDS: CEFTRIAXONE 1 GM/50 ML FROZ.PIGGY IV (12:41)
[2019-07-07] MEDS: ONDANSETRON 4 MG/2 ML INJ IV (12:42)
--- NOTE | 2019-07-07 12:56 | PC.NURSE ---
Shift Summary: Patient needed assist w/ breakfast, uses her fingers to pickle sorter food and eat it. Ate all of her breakfast. Patient took nap, when awake she was jonathan lifted to c, tremulous arms when sitting upright. incont and cont of urine. Patient given bed bath and lotion to face and legs then jonathan lifted to recliner, she again napped. Awoke briefly and offered lunch, she states her stomach was upset. Asked if it was nausea and she agreed. Given zofran. Patient back to sleep in recliner. Chair alarm activated.
--- NOTE | 2019-07-07 14:39 | PT.IPTN ---
Physical Therapy Treatment Note M2 PT-IP Current Condition Start: 07/06/19 08:49 Freq: NEEDED Status: Active Protocol: Document 07/06/19 11:20 AW (Rec: 07/06/19 12:04 AW [id number]) Physical Therapy Current Condition Current Condition Evaluation Date 07/06/19 Treatment Diagnosis UTI, dementia, difficulty in walking Onset Date 07/05/19 M3 PT-IP Subjective Start: 07/06/19 08:49 Freq: NEEDED Status: Active Protocol: Document 07/07/19 14:27 AW (Rec: 07/07/19 14:39 AW [id number]) Subjective Physical Therapy Visit Type Type Treatment Note Visit Start Time 14:00 Visit Stop Time 14:25 Total Visit Minutes 25 Number of OPERATIONS SUPERVISOR Visits 0 Physical Therapy Visit Comments Patient Comments Pt willing to work with PT M4 PT-IP Mobility and Gait Start: 07/06/19 08:49 Freq: NEEDED Status: Active Protocol: Document 07/07/19 14:27 AW (Rec: 07/07/19 14:39 AW [id number]) PT-Transfer Assessment Sit to and From Stand Sit to and from Stand Maximum Assistance,2 Person Assistance,Use of Upper Extremities Equipment Orthotic/Prosthetic Devices or Brace: Yes Comments Mobility Comments Pt was being hoyered [facility] <> chair upon PT arrival. She expressed discouragement but was willing to participate with PT. MARYJO Castro assisted with mobility for safety. With pt's AFO and shoes donned, she scooted forward in the chair slowly, requiring min A x [address] her feet on the floor. She stood using FWW and max A x 2. She was able to stand 90 seconds with max encouragement in spite of asking to sit repeatedly. She needed cues for upright posture and tactile cues / facilitation to place her hands on the walker. Verbal and tactile cues were also required for use of BUE to push off from chair arms. After standing 90 seconds, pt sat requiring max cues and facilitation for hand placement. She attempted to stand again, but became panicked with the idea of falling so returned to sitting without attaining full standing posture. Pt was positioned in the chair with call light and table within reach. Pt no longer has 1:1 sitter, so NITROCELLULOSE MAKER was notified and placed a chair alarm for safety. Gait Assessment Comments Gait Comments Unable today. M5 PT-IP Objective Assessments Start: 07/06/19 08:49 Freq: NEEDED Status: Active Protocol: Document 07/06/19 11:20 AW (Rec: 07/06/19 12:04 AW [id number]) Orientation Orientation/Cognition Level of Alertness Confusional State Orientation Name Language Function Ability Hard of Hearing Safety Awareness Decreased Safety Awareness Memory Description Short Term Impaired,Mcc Impaired Comments Pt with advanced dementia. She was oriented to self and knew the name of the street where she resides but was otherwise not oriented. Gross Range of Motion Lower Extremity ROM Assessment Right Impaired Impairments Lacking DF and eversion R foot Strength Lower Extremity Strength Assessment Bilaterally Impaired Hip 4-/5 Knee L 4/5; R 4-/5 Ankle L4-/5; R 3-/5 Sensation Assessment Comments Sensation Comments Unable to assess due to cognition. M6 PT-IP Treatment Start: 07/06/19 08:49 Freq: NEEDED Status: Active Protocol: Document 07/07/19 14:27 AW (Rec: 07/07/19 14:39 AW [id number]) Physical Therapy Treatment Exercises Exercises Gluteal Sets,Quad Sets,Seated Knee Flexion/Extension Education Education Provided Safety M7 PT-IP Assessment and Plan Start: 07/06/19 08:49 Freq: NEEDED Status: Active Protocol: Document 07/07/19 14:27 AW (Rec: 07/07/19 14:39 AW [id number]) PT Summary Assessment and Plan Summary Impairments Pain,ROM,Strength,Balance, Cognition,Bed Mobility, Transfers,Gait,Activity Tolerance Progress Towards Goals Slow Progress due to Activity Tolerance,Slow Progress - Other Assessment Summary Park had improved standing tolerance today but was too tired from recent jonathan transfers, refusing ambulation . She did show good effort with interventions and remains an excellent candidate for SNF rehab. Goals Bed Mobility Goal Contact Guard Assistance Transfer Goal Minimal Assistance,Front Wheeled Walker Gait Goal Minimal Assistance,Front Wheel Walker Gait Distance 20 Days to Meet Goals 10 Frequency of Treatment Frequency Of Treatment Once a Day Treatment Plan Physical Therapy Treatment Plan Bed Mobility Training,Transfer Training,Gait Training, Therapeutic Exercise,Balance Retraining,Discharge Planning, Neuromuscular Re-ed, Coordination Retraining Other Recommendations and Next Treatment bed mobility; sit to stand; Focus assess transfer and gait with braces Recommendations To Nursing Amount of Assist Needed 2 Person Assist Discharge Recommendations PT Discharge Recommendations SNF Rehab Transportation Needs at Discharge Wheelchair/Cabulance
[2019-07-07 15:20] VITALS: BP 137/71; PULSE 63; RESP 16; TEMP 36.2; O2SAT 92
[2019-07-07 18:10] VITALS: O2SAT 95
[2019-07-07] MEDS: SENNOSIDES 8.6 MG TABLET PO (20:50)
[2019-07-07] MEDS: ATORVASTATIN 10 MG TABLET PO (20:50)
[2019-07-07] MEDS: polyethylene glycoL 3350 17 GM POWD.PACK PO (20:50)
[2019-07-07 23:00] VITALS: BP 136/72; PULSE 70; RESP 18; TEMP 36.8; O2SAT 93; O2SAT 95
[2019-07-08 08:00] VITALS: BP 149/82; PULSE 66; RESP 16; TEMP 36.1; O2SAT 91
[2019-07-08 08:06] VITALS: O2SAT 97
[2019-07-08] MEDS: LOSARTAN 50 MG TABLET PO (09:04)
[2019-07-08] MEDS: SERTRALINE 50 MG TABLET 100 MG PO (09:05)
[2019-07-08] MEDS: INSULIN ASPART 100 UNIT/ML INSULN PEN SUBCUT (09:05)
[2019-07-08] MEDS: DONEPEZIL 5 MG TABLET PO (09:06)
[2019-07-08] MEDS: PROPRANOLOL ER 60 MG CAPSULE PO (09:06)
[2019-07-08] MEDS: TOLTERODINE LA 2 MG CAP PO (09:06)
--- NOTE | 2019-07-08 09:30 | PT.IPTN ---
Current Diagnoses Urinary tract infection, site not specified (07/06/19) Physical Therapy Treatment Note M2 PT-IP Current Condition Start: 07/06/19 08:49 Freq: NEEDED Status: Active Protocol: Document 07/06/19 11:20 AW (Rec: 07/06/19 12:04 AW [id number]) Physical Therapy Current Condition Current Condition Evaluation Date 07/06/19 Treatment Diagnosis UTI, dementia, difficulty in walking Onset Date 07/05/19 M3 PT-IP Subjective Start: 07/06/19 08:49 Freq: NEEDED Status: Active Protocol: Document 07/08/19 09:20 AW (Rec: 07/08/19 11:06 AW [id number]) Subjective Physical Therapy Visit Type Type Treatment Note Visit Start Time 08:55 Visit Stop Time 09:20 Total Visit Minutes 25 Notes Co-treat with DADA Arreaga Physical Therapy Visit Comments Patient Comments Pt requesting to use the commode M4 PT-IP Mobility and Gait Start: 07/06/19 08:49 Freq: NEEDED Status: Active Protocol: Document 07/08/19 09:20 AW (Rec: 07/08/19 11:06 AW [id number]) PT-Bed Mobility Assessment Supine to Sit Supine to Sit Moderate Assistance,2 Person Assistance,Head of Bed Elevated,Bedrails Scooting Scooting to Edge of Bed Moderate Assistance PT-Transfer Assessment Sit to and From Stand Sit to and from Stand Moderate Assistance,2 Person Assistance,Use of Upper Extremities Equipment Transfer Assistive Device Gait Belt,Front Wheeled Walker Orthotic/Prosthetic Devices or Brace: Yes Transfers Transfer Destination Chair,Bedside Commode Transfer Technique Stand Step Pivot Transfer Ability Level of Assist Moderate Assistance,2 Person Assistance,Use of Upper Extremities Comments Mobility Comments Pt reclining in bed upon therapy arrival, requesting to use the BSC. She transferred to sitting mod A x 2 and scooted toward EOB mod A x 1. She was able to support herself briefly in sitting and then required mod A x 2 to stand using FWW with improved quad activation compared with previous sessions. She pivot transferred to the BSC mod A x 2. When finished with the commode, she stood mod A x 2 and stood > 1 minute for pericare before ambulating 3 feet to the chair mod A x 2. Gait Assessment Gait Gait Assistance Required: Moderate Assistance,2 Person Assist Distance (Feet) 10 Assistive Devices Assistive Device Gait Belt,Front Wheeled Walker Orthotic/Prosthetic Devices or Brace: Yes Gait Deviations General Gait Pattern Antalgic,Decreased Stride Length,Decreased Feet Clearance,Flexed Trunk,Lateral Trunk Lean,Wide Based Gait Factors Limiting Gait Function Factors Limiting Gait Function Decreased Activity Tolerance, Decreased Strength,Difficulty Following Directions,Limited Range of Motion,Poor Balance, Poor Safety Awareness Comments Gait Comments Pt's left foot is externally rotated in stance and she had significant difficulty moving her RLE. In response to cues for BIG steps, she was able to improve her foot clearance bilaterally but required constant cueing. Pt was safest with chair follow. She is prone to anxiety with regard to falling which contributes to her mobility limitations. M5 PT-IP Objective Assessments Start: 07/06/19 08:49 Freq: NEEDED Status: Active Protocol: Document 07/06/19 11:20 AW (Rec: 07/06/19 12:04 AW [id number]) Orientation Orientation/Cognition Level of Alertness Confusional State Orientation Name Language Function Ability Hard of Hearing Safety Awareness Decreased Safety Awareness Memory Description Short Term Impaired,Senior Living Impaired Comments Pt with advanced dementia. She was oriented to self and knew the name of the street where she resides but was otherwise not oriented. Gross Range of Motion Lower Extremity ROM Assessment Right Impaired Impairments Lacking DF and eversion R foot Strength Lower Extremity Strength Assessment Bilaterally Impaired Hip 4-/5 Knee L 4/5; R 4-/5 Ankle L4-/5; R 3-/5 Sensation Assessment Comments Sensation Comments Unable to assess due to cognition. M6 PT-IP Treatment Start: 07/06/19 08:49 Freq: NEEDED Status: Active Protocol: Document 07/08/19 09:20 AW (Rec: 07/08/19 11:06 AW [id number]) Physical Therapy Treatment Education Education Provided Safety M7 PT-IP Assessment and Plan Start: 07/06/19 08:49 Freq: NEEDED Status: Active Protocol: Document 07/08/19 09:20 AW (Rec: 07/08/19 11:06 AW [id number]) PT Summary Assessment and Plan Summary Impairments Pain,ROM,Strength,Balance, Cognition,Bed Mobility, Transfers,Gait,Activity Tolerance Progress Towards Goals Slow Progress due to Activity Tolerance,Slow Progress - Other Assessment Summary Park required lesser degree of assist today for standing, transfers, and gait. She was able to attend to task and had overall improved activity tolerance. Discharge disposition will depend on progress in therapy. Goals Bed Mobility Goal Contact Guard Assistance Transfer Goal Minimal Assistance,Front Wheeled Walker Gait Goal Minimal Assistance,Front Wheel Walker Gait Distance 20 Days to Meet Goals 10 Frequency of Treatment Frequency Of Treatment Once a Day Treatment Plan Physical Therapy Treatment Plan Bed Mobility Training,Transfer Training,Gait Training, Therapeutic Exercise,Balance Retraining,Discharge Planning, Neuromuscular Re-ed, Coordination Retraining Other Recommendations and Next Treatment sit to stand; standing Focus tolerance; gait with chair follow Recommendations To Nursing Amount of Assist Needed 2 Person Assist Discharge Recommendations PT Discharge Recommendations SNF Rehab Transportation Needs at Discharge Wheelchair/Cabulance
--- NOTE | 2019-07-08 09:48 | OT.IP.TRT ---
Current Diagnoses Urinary tract infection, site not specified (07/06/19) Occupational Therapy Treatment Note M2 OT-IP Current Condition Start: 07/06/19 14:20 Freq: Status: Active Protocol: Document 07/06/19 14:20 [facility] (Rec: 07/06/19 14:34 [facility] [email or web address]) Occupational Therapy Current Condition Current Condition Evaluation Date 07/06/19 Treatment Diagnosis UTI and new dx of DM Diagnosis Onset Date 07/05/19 M3 OT- IP Subjective and Pain Start: 07/06/19 14:20 Freq: Status: Active Protocol: Document 07/08/19 09:36 [facility] (Rec: 07/08/19 09:48 [facility] [id number]) OT- Subjective Occupational Therapy Visit Type Type Treatment Note Visit Start Time 09:00 Visit Stop Time 09:34 Total Visit Minutes 34 Occupational Therapy Visit Comments Patient Comments Pt wanting to use the BSC, PT present during session due to pt needing extensive assist for mobility needs. Patient/Caregiver Goals Pt wanting to go home. OT Pain Assessment Pain When Pain Assessed At Rest Pain Present Pain Present Denied Pain M4 OT- IP ADL's Start: 07/06/19 14:20 Freq: Status: Active Protocol: Document 07/08/19 09:36 [facility] (Rec: 07/08/19 09:48 [facility] [id number]) OT ADL-Grooming General Evaluation Grooming Ability Standby Assistance Areas Needing Assistance Retrieving/Set-up of Grooming Items Comments OT Grooming Comments set-up , vc to initiate to brush her teeth and brush her hair. OT ADL-Oral Care General Eval Oral Care Ability Standby Assistance Comments Oral Care Comments vc for completeness OT ADL-Dressing General Eval Lower Body Dressing Ability Total Assistance Areas Needing Assistance Socks,Shoes,Orthosis/ Prosthesis OT ADL-Toileting General Evaluation Toileting Ability Maximum Assistance Areas Needing Assistance Manage Clothing,Perform Perineal Hygiene Comments OT Toileting Comments Dependent for hygiene and MAX A for brief while standing with PT assist and FWW. OT ADL-Bathing Comments OT Bathing Comments Not performed in this session. M5 OT- IP IADL's Start: 07/06/19 14:20 Freq: Status: Active Protocol: Document 07/06/19 14:20 [facility] (Rec: 07/06/19 14:34 [facility] [email or web address]) OT-Instrumental Activities of Daily Living Deficits IADL Deficits Identified Deficits Home Safety Awareness Awareness of Need for Assistance at Home Decreased Awareness Ability to Problem Solve Emergency Unable to Problem Solve Situations Medication Management Medication Management Caregiver Administers Money Management Money Management Caregiver Provides Assistance Meal Preparation Meal Preparation Caregiver Provides Assist Silver Brazer Silver Brazer Caregiver Provides Assist Driving Driving Comments Pt does not drive. M6 OT- IP Functional Cognition Start: 07/06/19 14:20 Freq: Status: Active Protocol: Document 07/08/19 09:36 [facility] (Rec: 07/08/19 09:48 [facility] [id number]) Cognitive Factors Limiting Selfcare Function Cognitive Ability Level of Alertness Alert,Confusional State Patient Orientation Name Attention Span Ability Capable of Focused Attention, Capable of Sustained Attention Ability to Follow Commands Able to Follow One Step Commands with Increased Time, Able to Follow One Step Commands with Repetition Memory Description Immediate Impaired,Short Term Impaired,Nursing Home Intact, Working Impaired Safety Awareness Underestimates Need for Assistance Problem Solving Ability Unable to Identify Errors, Needs Assist to Identify Solutions Cognitive Comments Cognitive Assessment Comments VC to help sequence through task of grooming needs. M7 OT- IP Mobility and Balance Start: 07/06/19 14:20 Freq: Status: Active Protocol: Document 07/08/19 09:36 [facility] (Rec: 07/08/19 09:48 [facility] [email or web address]) OT- Bed Mobility Assessment Supine to Sit Supine to Sit Assist Moderate Assistance,2 Person Assistance OT-Transfer Assessment Sit to and From Stand Sit to and from Stand Moderate Assistance,2 Person Assistance Transfers Transfer Ability Moderate Assistance,2 Person Assistance Technique Transfer Destination Bed,Chair Transfer Technique Stand Step Pivot Devices Transfer Assistive Devices Gait Belt,Front Wheeled Walker Comments Mobility Comments Improved with mobility needs, however still needing assist to help guide FWW and for pt's balance as still very weak and decreased activity tolerance. OT- Balance Assessment Sitting Balance and Reactions Static Sitting Balance Ability Fair Standing Balance and Reactions Static Standing Balance Ability Poor M8 OT- IP Objective Assessments Start: 07/06/19 14:20 Freq: Status: Active Protocol: Document 07/06/19 14:20 [facility] (Rec: 07/06/19 14:34 [facility] [email or web address]) OT Gross Range of Motion Upper Extremity Range of Motion Assessment Bilaterally Impaired ROM Impairments R shld 0-75 L shld 0-90 OT Strength Comments Strength Comments grossly 4/5 to hands and arms. shld's not tested. OT- Coordination Assessment Upper Extremity Finger to Nose Test Bilateral UE Impaired Finger Tapping Test Bilateral UE Impaired Comments Coordination Comments Pt unable to get finger to nose. Nursing reported similar experience with brushing teeth this AM. OT-Muscle Tone Assessment Muscle Tone WNL Yes OT Sensation Assessment Edema Edema Absent M9 OT- IP Assessment and Plan Start: 07/06/19 14:20 Freq: Status: Active Protocol: Document 07/08/19 09:36 [facility] (Rec: 07/08/19 09:48 [facility] [email or web address]) OT Summary Assessment and Plan Potential Rehabilitation Potential Fair Analytic Complexity at Evaluation Moderate Summary OT Impairments Pain,Balance,Coordination, Functional Cognition, Functional Mobility,Grooming, Dressing,Toileting,Bathing, Toilet Transfers,Shower Transfers,Activity Tolerance Progress Towards Goals Progressing Toward Goals,Slow Progress due to Cognition Assessment Summary Pt improved with mobility needs todya from MAX A X 2 to MODA X 2 with FWW. Pt will still benefit from skilled rehab as pt's current level of care too great for family to assist. Pending progress therefore SNF versus home with . Goals Self-Feeding Goal Independent Grooming Goal Standby Assistance Toileting Goal Standby Assistance,Contact Guard Assistance Toilet Transfer Goal Standby Assistance,Contact Guard Assistance Days to Meet Goals 8 Frequency of Treatment Frequency Of Treatment Once a Day Treatment Plan OT Treatment Plan ADL Training,Functional Cognition Training,Functional Mobility,Patient/Family Education,Discharge Planning Other Treatment Recommendations and Next Standing for grooming with FWW Treatment Focus . Discharge Recommendations OT Discharge Recommendations Home with 19/09 Assist,SNF Rehab Home Equipment Needs TBD Transportation Needs at Discharge Private Vehicle,Wheelchair/ Cabulance
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
--- NOTE | 2019-07-08 12:16 | PC.NURSE ---
Day shift: Pt sitting in chair for lunch. No c/o pain or discomfort. Awaiting placement and discharge. Antibiotics changed to oral. Ok w/ Dr Patel that Pt does snot have IV access. VS WNL. RA. Call light in reach and chair alarm attached. Door to room open.
[2019-07-08 16:00] VITALS: BP 145/77; PULSE 61; RESP 16; TEMP 36.3; O2SAT 94
[2019-07-08 16:26] VITALS: O2SAT 95
--- NOTE | 2019-07-08 16:37 | PC.NURSE ---
Addendum entered by Lucrecia Vieyra R.N. 07/08/19 21:54: Pt had relatively uneventful evening. Condition remains essentially unchanged. Using bedpan appropriately. CBG @ HS = 94. Call light w/in reach, bed alarm on for pt safety. Continue w/plan of care. Original Note: Pt sitting in chair at this time. Lungs clear/diminished at bases. SpO2 95% RA Denies any discomfort @ this time. Call light w/in reach, bed alarm on for pt safety.
--- NOTE | 2019-07-08 17:57 | PM.PN.1 ---
Subjective Subjective Date Patient Seen: 07/08/19 Time Patient Seen: 09:30 Interval history: Abbey Baptiste is a 78 year old female with PMH of dementia, HTN, HLD who presented with worsening weakness over the past few days as per reports by her . She was found to have a UTI and was started on antibiotics She is medically ready for discharge to [facility]. She denies complaints today other than continued weakness. Exam Vital Signs (past 8 hours): - 07/08/19 16:00 07/08/19 16:26 Temperature 97.4 F L Pulse Rate 61 Respiratory Rate 16 Blood Pressure 145/77 H Pulse Oximetry 94 95 Oxygen Delivery Method Room Air Oxygen Flow Rate 0 Narrative Exam Narrative: GENERAL APPEARANCE: Well developed, well nourished, in no acute distress. SKIN: Inspection of the skin reveals no rashes, ulcerations or petechiae. HEENT: Normocephalic atraumatic, extraocular muscles are intact, oropharynx is clear and mucous membranes are moist, neck is supple without adenopathy NECK: Supple and symmetric. There was no thyroid enlargement, and no tenderness, or masses were felt. CHEST: Normal AP diameter and normal contour without any kyphoscoliosis. LUNGS: Auscultation of the lungs revealed no wheezes, rhonchi, or rales. CARDIOVASCULAR: There was a regular rate and rhythm without any murmurs, gallops, rubs. Peripheral pulses were 2+ and symmetric. ABDOMEN: Soft and nontender with normal bowel sounds. No ascites was noted. MUSCULOSKELETAL: There was no tenderness or effusions noted. Muscle tone was normal. Strength +5/5 in bilateral upper and lower extremities however RUE is weaker compared to the L (Chronic) EXTREMITIES: No cyanosis, clubbing or edema. NEUROLOGIC: Alert and oriented x 2. Normal affect. cognitive impairment is evident. Objective Labs Result Diagrams: 07/06/19 07:42 07/06/19 07:42 Assessment & Plan Assessment & Plan narrative: Abbey Baptiste is a 78 year old female with PMH of dementia, HTN, HLD who presented with worsening weakness over the past few days as per reports by her . She was found to have a UTI and was started on IV ceftriaxone. 1. Toxic metabolic encephalopathy, acute, present on admission -likely secondary to urinary tract infection. Has been started on IV antibiotics. There is some improvement in cognition but she is still profoundly weak. -this may also represent progressive dementia, however there has been an acute change per the , and this will take time to evaluate. 2. Urinary tract infection, acute, present on admission -patient received ceftriaxone IV, will continue will 3 additional days of cefdinir -patient with encephalopathy as noted above as well as reported urinary frequency. -urine culture grew mixed carlitos. 3. New diagnosis of diabetes type 2, likely chronic, present on admission -initial blood glucoses were elevated in August, normalized than consistently elevated since March of this year -she has been put on [facility] glucose checks and a carb controlled diet with low-dose correctional insulin. -A1c of 6.6. Given age of 78, chronic comorbidities including hypertension, hyperlipidemia, and dementia would not initiate outpatient oral therapy at this time. 4. Hypertension, present on admission, chronic -continue home medications 5. Hyperlipidemia, chronic, present on admission -continue home statin 6. Advanced dementia, present on admission -can continue home donepezil Code: DNR Dispo: Changed to inpatient status, likely discharge to [facility]. was interested in transitioning to comfort care given decline in her mental status. However, will need to see if this acute changes due to her urinary tract infection and will take time to assess whether she recovers are not. Likely will discharge to [facility]. If there is no improvement in her status the is definitely interested in hospice consultation.
[2019-07-08] MEDS: polyethylene glycoL 3350 17 GM POWD.PACK PO (18:05)
[2019-07-08 19:17] VITALS: BP 142/76; PULSE 65; RESP 18; TEMP 36.7
[2019-07-08] MEDS: CEFDINIR 300 MG CAPSULE PO (20:26)
[2019-07-08] MEDS: ATORVASTATIN 10 MG TABLET PO (20:29)
[2019-07-08] MEDS: SENNOSIDES 8.6 MG TABLET PO (20:29)
[2019-07-08 23:00] VITALS: O2SAT 96
[2019-07-09 00:02] VITALS: BP 142/78; PULSE 65; RESP 18; TEMP 36.3; O2SAT 94
[2019-07-09 07:22] VITALS: BP 122/59; PULSE 66; RESP 15; TEMP 36.5; O2SAT 91
[2019-07-09 08:29] VITALS: O2SAT 96
[2019-07-09] MEDS: LOSARTAN 50 MG TABLET PO (08:37)
[2019-07-09] MEDS: CEFDINIR 300 MG CAPSULE PO ×2 (08:37→21:18)
[2019-07-09] MEDS: SERTRALINE 50 MG TABLET 100 MG PO (08:37)
[2019-07-09] MEDS: TOLTERODINE LA 2 MG CAP PO (08:37)
[2019-07-09] MEDS: PROPRANOLOL ER 60 MG CAPSULE PO (08:37)
[2019-07-09] MEDS: DONEPEZIL 5 MG TABLET PO (08:37)
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
--- NOTE | 2019-07-09 11:27 | PC.NURSE ---
Day shift: Pt ambulated w/ FWW to BR from chair in her room. She is alert to self and remembers this principal technical writer from yesterday. She has been pleasantly confused with no behavioral issues. She ate her breakfast this AM and did so with no help. She takes her medications one pill at a time but has no issues w/ swallowing. She has let nursing know when she needs anything or needs to void.
--- NOTE | 2019-07-09 11:50 | OT.IP.TRT ---
Current Diagnoses Urinary tract infection, site not specified (07/06/19) Occupational Therapy Treatment Note M2 OT-IP Current Condition Start: 07/06/19 14:20 Freq: Status: Active Protocol: Document 07/06/19 14:20 CGR (Rec: 07/06/19 14:34 CGR [id number]) Occupational Therapy Current Condition Current Condition Evaluation Date 07/06/19 Treatment Diagnosis UTI and new dx of DM Diagnosis Onset Date 07/05/19 M3 OT- IP Subjective and Pain Start: 07/06/19 14:20 Freq: Status: Active Protocol: Document 07/09/19 11:33 [facility] (Rec: 07/09/19 11:50 [facility] [id number]) OT- Subjective Occupational Therapy Visit Type Type Treatment Note Visit Start Time 11:15 Visit Stop Time 11:31 Total Visit Minutes 16 Occupational Therapy Visit Comments Patient Comments Pt wanting to use the bathroom . Patient/Caregiver Goals Pt wanting to go home. OT Pain Assessment Pain When Pain Assessed At Rest Pain Present Pain Present Denied Pain M4 OT- IP ADL's Start: 07/06/19 14:20 Freq: Status: Active Protocol: Document 07/09/19 11:33 [facility] (Rec: 07/09/19 11:50 [facility] [id number]) OT [id number] Comments OT Self-Feeding Comments Not meal time OT ADL-Toileting General Evaluation Toileting Ability Maximum Assistance Areas Needing Assistance Manage Clothing,Perform Perineal Hygiene Devices Toileting Assistive Devices Raised Toilet Seat Comments OT Toileting Comments Dependent for hygiene while standing with another person MODA/MAX x 1 and heavy use of grab bars to stand. OT ADL-Bathing Comments OT Bathing Comments Not performed in this session. M5 OT- IP IADL's Start: 07/06/19 14:20 Freq: Status: Active Protocol: Document 07/06/19 14:20 CGR (Rec: 07/06/19 14:34 CGR [id number]) OT-Instrumental Activities of Daily Living Deficits IADL Deficits Identified Deficits Home Safety Awareness Awareness of Need for Assistance at Home Decreased Awareness Ability to Problem Solve Emergency Unable to Problem Solve Situations Medication Management Medication Management Caregiver Administers Money Management Money Management Caregiver Provides Assistance Meal Preparation Meal Preparation Caregiver Provides Assist Chemical Dependency Counselor Chemical Dependency Counselor Caregiver Provides Assist Driving Driving Comments Pt does not drive. M6 OT- IP Functional Cognition Start: 07/06/19 14:20 Freq: Status: Active Protocol: Document 07/09/19 11:33 [facility] (Rec: 07/09/19 11:50 [facility] [id number]) Cognitive Factors Limiting Selfcare Function Cognitive Ability Level of Alertness Alert,Confusional State Patient Orientation Name Attention Span Ability Capable of Focused Attention, Capable of Sustained Attention Ability to Follow Commands Able to Follow One Step Commands with Increased Time, Able to Follow One Step Commands with Repetition Memory Description Immediate Impaired,Short Term Impaired,Intermediate Intact, Working Impaired Safety Awareness Underestimates Need for Assistance Problem Solving Ability Unable to Identify Errors, Needs Assist to Identify Solutions Cognitive Comments Cognitive Assessment Comments Pt still needing assist to sequence through ADl and functional mobility and not able to recall/retain information that she is in the hospital. Pt asking to where her is. Pt needing continual reminders when walking to the toilet that she was going to use the toilet. M7 OT- IP Mobility and Balance Start: 07/06/19 14:20 Freq: Status: Active Protocol: Document 07/09/19 11:33 [facility] (Rec: 07/09/19 11:50 [facility] [id number]) OT-Transfer Assessment Sit to and From Stand Sit to and from Stand Moderate Assistance,2 Person Assistance Transfers Transfer Ability Moderate Assistance,Maximum Assistance,2 Person Assistance Technique Transfer Destination Chair,Toilet Devices Transfer Assistive Devices Gait Belt,Front Wheeled Walker Comments Mobility Comments MODA x 2 to MAX A x1 with grab bar to stand. As pt tires, she is needing more assist to help keep upright and pt tends to externally rotate her left leg and needing cues to step with her left foot. OT- Balance Assessment Sitting Balance and Reactions Static Sitting Balance Ability Fair Standing Balance and Reactions Static Standing Balance Ability Poor M8 OT- IP Objective Assessments Start: 07/06/19 14:20 Freq: Status: Active Protocol: Document 07/06/19 14:20 [facility] (Rec: 07/06/19 14:34 [facility] [id number]) OT Gross Range of Motion Upper Extremity Range of Motion Assessment Bilaterally Impaired ROM Impairments R shld 0-75 L shld 0-90 OT Strength Comments Strength Comments grossly 4/5 to hands and arms. shld's not tested. OT- Coordination Assessment Upper Extremity Finger to Nose Test Bilateral UE Impaired Finger Tapping Test Bilateral UE Impaired Comments Coordination Comments Pt unable to get finger to nose. Nursing reported similar experience with brushing teeth this AM. OT-Muscle Tone Assessment Muscle Tone WNL Yes OT Sensation Assessment Edema Edema Absent M9 OT- IP Assessment and Plan Start: 07/06/19 14:20 Freq: Status: Active Protocol: Document 07/09/19 11:33 [facility] (Rec: 07/09/19 11:50 [facility] [id number]) OT Summary Assessment and Plan Potential Rehabilitation Potential Fair Analytic Complexity at Evaluation Moderate Summary OT Impairments Pain,Balance,Coordination, Functional Cognition, Functional Mobility,Grooming, Dressing,Toileting,Bathing, Toilet Transfers,Shower Transfers,Activity Tolerance Progress Towards Goals Progressing Toward Goals,Slow Progress due to Cognition Assessment Summary Pt able to tolerate to walk to the toilet today with MODA X2 to MAX X 2. Pt still far from baseline with mobility needs and will benefit from skilled rehab. Goals Self-Feeding Goal Independent Grooming Goal Standby Assistance Toileting Goal Standby Assistance,Contact Guard Assistance Toilet Transfer Goal Standby Assistance,Contact Guard Assistance Days to Meet Goals 7 Frequency of Treatment Frequency Of Treatment Once a Day Treatment Plan OT Treatment Plan ADL Training,Functional Cognition Training,Functional Mobility,Patient/Family Education,Discharge Planning Other Treatment Recommendations and Next Standing for grooming with FWW Treatment Focus with recliner behind. Discharge Recommendations OT Discharge Recommendations SNF Rehab Other Discharge Recommendations After SNF, may pending progress pt may end of benefiting from LTC. Home Equipment Needs TBD Transportation Needs at Discharge Wheelchair/Cabulance
[2019-07-09 12:38] LABS: COVID19 -Nasal RAPID Negative (Negative)
--- NOTE | 2019-07-09 15:04 | CM.DPC ---
DCP/continued: Received notification from provider that patient medically stable to discharge. Current recommendation is SNF for PT/OT. [facility] currently evaluating for admit. Other facility reviewing is [facility], although MUSIC THEORY TEACHER unable to reach them today. Akanksha Ramírez reports that they are unable to accept. Spoke with Uma at [facility] and notified her that patient has been medically stable and that she will need to be placed either in SNF or home with HH tomorrow. She understood and reports that they will let us know tomorrow 07-10-19. Placed call to patient's spouse Gigi re: d/c planning. MUSIC THEORY TEACHER made Gigi of the difficulty we are having placing his with underline dementia. Gigi understands but will like us to continue to try today. In the meantime, Gigi plans to round up friends/family to assist at home if needed. Spouse in agreement to HH and would like [facility] if it is determined that no SNF can accommodate. P: Pending. [facility] and [facility] reviewing. If both unable to accept might want to consider home with HH and caregiver training prior to patient's departure. Dr. Patel updated. F2F and HH will need to be arranged. BIBI Husain
[2019-07-09 15:14] VITALS: BP 154/93; PULSE 70; RESP 18; TEMP 36.7; O2SAT 93
[2019-07-09 17:00] VITALS: O2SAT 95
[2019-07-09] MEDS: polyethylene glycoL 3350 17 GM POWD.PACK PO (18:52)
[2019-07-09] MEDS: SENNOSIDES 8.6 MG TABLET PO (21:16)
[2019-07-09] MEDS: ATORVASTATIN 10 MG TABLET PO (21:16)
--- NOTE | 2019-07-09 22:06 | PC.NURSE ---
Pt has had uneventful afternoon/evening. Sat in chair for portion of shift. CBG AC = 123 & HS = 157, no coverage required. No IV access as per orders. Denies any discomfort. Call light w/in reach, bed alarm on for pt safety. Continue as per plan of care.
[2019-07-10] VITALS: BP 142/69; PULSE 63; RESP 18; TEMP 36.3; O2SAT 95
[2019-07-10 00:12] VITALS: O2SAT 95
[2019-07-10 07:51] VITALS: BP 147/76; PULSE 65; RESP 16; TEMP 36.3; O2SAT 93
[2019-07-10 08:12] VITALS: BP 147/76; PULSE 65
[2019-07-10] MEDS: TOLTERODINE LA 2 MG CAP PO (08:12)
[2019-07-10] MEDS: CEFDINIR 300 MG CAPSULE PO (08:12)
[2019-07-10] MEDS: LOSARTAN 50 MG TABLET PO (08:12)
[2019-07-10] MEDS: PROPRANOLOL ER 60 MG CAPSULE PO (08:12)
[2019-07-10] MEDS: DONEPEZIL 5 MG TABLET PO (08:12)
[2019-07-10] MEDS: SERTRALINE 50 MG TABLET 100 MG PO (08:17)
--- NOTE | 2019-07-10 09:17 | CM.DPC ---
Addendum entered by Isabela Peacock R.N. 07/10/19 10:47: Uma from [facility] called and stated that they can accept patient and will pick her up today at 11:00. Called , Gigi, and updated him, so he would not have to come in for transfer training. Med sheets signed, had Dr. Kong sign updated med sheet discontinuing BIPAP, for confirmed with that she has not used for a year, refused. Patient has history of sleep apnea. PASSR signed, white board updated in main nurses station with pickling operator time, and nurses Sonya and Qiana updated. Faxed [facility] PASSR and updated med list, pending discharge summary until completed. Original Note: DCP Cont: Patient has discharge orders today. Patient will either go home, or to [facility], for they were going to decide today. Left a message with Uma in admissions at [facility] to see if they can accept. Other plan is for patient to go home with [facility]. Will have hospitalist sign face to face during team rounds. [facility] [place] will get in touch with spouse, Gigi, for transfer training in case [facility] does not accept. Will request P.T, O.T, bath aide, and ANIMAL TRAINER SUPERVISOR upon discharge, for home health option. P: Patient will discharge today either to [facility] or home with [facility]. Isabela Peacock, MARYJO/Design Engineering Technician
[2019-07-10 09:30] VITALS: O2SAT 93
--- NOTE | 2019-07-10 10:07 | P.DS_ITS ---
History of Present Illness History of Present Illness Date Patient Seen: 07/05/19 Chief complaint: Profound Weakness Narrative: Written by Juliano ROBERTS: Patient has advanced dementia and is unable to provide me with a history nor is she able to follow directions. I was able to get some history from her Gigi Baptiste. Patient has had a long history of progressively worsening dementia. When asked she is unable to tell me where she is but does states she lives at home. She does not remember her birthday ?I am not into birthdays?. states that she has had troubles walking and has persistent problems with her memory. This morning she went to go to the bathroom and apparently was not able to sit up or stand up. She uses a combination walker/wheelchair to ambulate but has not been for the past several days. He states his long she can turn around on her feet he is able to assist her. Prior to the state's stay at home orders she used to go to an adult daycare facility once a week and said that was very beneficial to her. He states that she has had to go to the bathroom quite frequently and normally does not have urinary or bowel incontinence. He states that she does ?leak? and wears a depends. 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 He states she has never had a diagnosis of diabetes. Discharge Providers Provider Date of admission: 07/06/19 12:18 Discharge Date: 07/10/19 Primary care physician: Chin Bales MD Consults: 07/05/19 20:27 Consult to Discharge Planning Routine Comment: Consult to Occupational Therapy Evaluate & Treat Comment: cognitive eval Physician Instructions: Evaluate and treat Consult to Physical Therapy Evaluate & Treat Comment: weakness Physician Instructions: Evaluate and Treat Discharge provider: Quiana Kong DO Summary Hospital Course Discharge Diagnosis: 1. Acute metabolic encephalopathy in setting of possibly progressive chronic dementia, present on admission. Acute metabolic encephalopathy resolved. 2. Acute urinary tract infection, present on admission. Resolving. 3. Newly diagnosed diabetes mellitus type 2, chronic, present on admission. Stable. 4. Hypertension, chronic, present on admission. Stable. 5. Hyperlipidemia, chronic, present on admission. Stable. 6. Overactive bladder, chronic, present on admission. Stable. Hospital Course: Abbey Baptiste is a 78 year old female with PMH of dementia, HTN, HLD who presented with worsening weakness over the past few days as per reports by her . She was found to have a UTI and was started on IV ceftriaxone. 1. Acute metabolic encephalopathy in setting of possibly progressive chronic dementia, present on admission. Acute metabolic encephalopathy resolved. -Acute metabolic encephalopathy secondary to urinary tract infection and resolved with antibiotic treatment of UTI. Chronic portion due to dementia which may possibly be progressive. -Continued home donepezil 5 mg daily and sertraline 100 mg daily. -Continued to reorient and redirect frequently. 2. Acute urinary tract infection, present on admission. Resolving. -Patient presented with weakness, urinary frequency, and increased confusion. -Urinalysis appeared grossly infected and grew 3+ colony types of mixed carlitos deemed unsuitable for further growth. Received ceftriaxone 1 g IV daily x3 days. Started cefdinir 300 mg twice daily for 4 additional days to complete 7 days total of antibiotic therapy (stop after second dose on 07/11/2019). 3. Newly diagnosed diabetes mellitus type 2, chronic, present on admission. Stable. -Hemoglobin A1c 6.6% indicative of fair glycemic control. Previous blood glucose elevated in August 2018 then normalized. Blood glucoses have been consistently elevated since March 2019. -Continued [facility] blood glucose checks and low-dose correctional scale insulin. -Continued diet control with carbohydrate consistent/heart healthy diet. Due to age and chronic comorbidities including hypertension, hyperlipidemia, and dementia would not initiate outpatient oral therapy at this time and will defer to PCP. 4. Hypertension, chronic, present on admission. Stable. -Continued home hydrochlorothiazide 12.5 mg daily, losartan 50 mg daily and propanolol 60 mg daily. 5. Hyperlipidemia, chronic, present on admission. Stable. -Continued home atorvastatin 10 mg daily at bedtime. 6. Overactive bladder, chronic, present on admission. Stable. -Continued home tolterodine 10 mg daily. Exam Vital Signs (past 8 hours): - 07/10/19 07:51 07/10/19 08:12 07/10/19 09:30 Temperature 97.3 F L Pulse Rate 65 65 Respiratory Rate 16 Blood Pressure 147/76 H 147/76 H Pulse Oximetry 93 93 Oxygen Delivery Method Room Air Oxygen Flow Rate 0 Narrative Exam Narrative: General: Elderly female sitting in bedside chair and in no acute distress, well-developed, well-nourished, advanced dementia and oriented to self only but otherwise appropriately interactive. HEENT: Normocephalic, atraumatic. External ears without defect. Pupils equal, round, and reactive to light. Anicteric sclerae, moist conjunctivae, and no lid lag. Oropharynx free of erythema and cobble stoning with moist mucosa. Neck: Supple with full range of motion. No jugular venous distension. No bruits. No lymphadenopathy or thyromegaly. Cardiovascular: Regular rate and rhythm without murmurs, rubs, or gallops ap preciated Pulmonary: Clear to auscultation bilaterally without crackles, wheezes, or rhonchi. Normal respiratory effort with no use of accessory muscles. Abdomen: Soft, bowel sounds present, nontender, nondistended. No hepatosplenomegaly or masses appreciated. Extremities: No clubbing, cyanosis, or edema. Right lower extremity with chronic foot drop in brace. Skin: Normal temperature, turgor, and texture; no rash, ulcers, or subcutaneous nodules appreciated. Neurological: Cranial nerves grossly intact. Psychiatric: Normal mood and affect. Alert and oriented to person only. Advanced dementia with short and long-term memory deficit. Objective Labs Result Diagrams: 07/06/19 07:42 07/06/19 07:42 Labs: Laboratory Results - last 24 hr 07/09/19 11:15 COVID-19 PCR Negative Discharge Plan Discharge Plan Patient Disposition: SNF Transfer to: [facility] Discharge orders & Medications Prescriptions: New cefdinir 300 mg Capsule 300 mg PO BID Qty: 3 RF: 0 Continued hydrochlorothiazide 25 MG tablet 12.5 mg PO DAILY Qty: 0 RF: 0 sertraline 100 mg tablet 100 mg PO DAILY RF: 0 omeprazole 20 mg capsule,delayed release(DR/EC) 20 mg PO BID RF: 0 donepezil 5 mg tablet 5 mg PO DAILY RF: 0 propranolol 60 mg capsule,extended release 24 hr 60 mg PO DAILY RF: 0 phenazopyridine 100 mg Tablet 100 mg PO TID PRN (Reason: Bladder Spasms) RF: 0 losartan 50 mg tablet 50 mg PO DAILY RF: 0 atorvastatin [Lipitor] 10 MG tablet 10 mg PO BEDTIME RF: 0 tolterodine 2 mg capsule,extended release 24hr 2 mg PO DAILY RF: 0 acetaminophen 325 mg Tablet 325 mg PO PRN PRN (Reason: pain) RF: 0 polyethylene glycol 3350 [Miralax] 17 gram Powder In Packet 17 g PO QPM RF: 0 sennosides-docusate sodium [Senna-S] 8.6-50 mg Tablet 1 tab-cap PO BEDTIME RF: 0 potassium chloride 10 mEq tablet extended release 10 meq PO DAILY RF: 0 ginkgo biloba 60 mg Capsule 120 mg PO DAILY RF: 0 lutein extract-zeaxanthin ext 15-0.7 mg Capsule 1 cap PO QAM RF: 0 cholecalciferol (vitamin D3) [Vitamin D3] 2,000 unit Tablet 2,000 unit PO DAILY RF: 0 Discontinued (DME) Respironics Dreamstation BIPAP AutoSV Qty: 1 RF: 0 Follow up/Referrals: Chin Bales MD [Primary Care Provider] - Diet/Activity/Treatments Diet: Carb-consistent/Diabetic, Low-fat, Low-sodium and Low-cholesterol Activity: Activity as tolerated with forward wheeled walker and physical and occupational therapy [facility] Rehab type: Physical therapy and Occupational therapy Discharge Data Primary Care Provider: Chin Bales V
--- NOTE | 2019-07-10 10:15 | PT.IPTN ---
Current Diagnoses Urinary tract infection, site not specified (07/06/19) Physical Therapy Treatment Note M2 PT-IP Current Condition Start: 07/06/19 08:49 Freq: NEEDED Status: Discharge Protocol: Document 07/06/19 11:20 AW (Rec: 07/06/19 12:04 AW [id number]) Physical Therapy Current Condition Current Condition Evaluation Date 07/06/19 Treatment Diagnosis UTI, dementia, difficulty in walking Onset Date 07/05/19 M3 PT-IP Subjective Start: 07/06/19 08:49 Freq: NEEDED Status: Discharge Protocol: Document 07/10/19 10:15 AB (Rec: 07/10/19 12:11 AB [id number]) Subjective Physical Therapy Visit Type Type Treatment Note Visit Start Time 10:15 Visit Stop Time 10:34 Total Visit Minutes 19 Number of CASTING CARRIER Visits 0 Physical Therapy Visit Comments Patient Comments pt agreeable to do PT M4 PT-IP Mobility and Gait Start: 07/06/19 08:49 Freq: NEEDED Status: Discharge Protocol: Document 07/10/19 10:15 AB (Rec: 07/10/19 12:11 AB [id number]) PT-Transfer Assessment Sit to and From Stand Sit to and from Stand Maximum Assistance,1 Person Assistance,2 Person Assistance ,Use of Upper Extremities Equipment Transfer Assistive Device Gait Belt,Front Wheeled Walker Orthotic/Prosthetic Devices or Brace: No Transfers Transfer Destination Chair Transfer Technique Stand Step Pivot Transfer Ability Level of Assist Maximum Assistance,2 Person Assistance,Use of Upper Extremities Comments Mobility Comments Co-tx with OT conducted due to pt's complex medical condition. Pt sitting on bedside commode. pt completed sit to stand max A and max cues and required max A to maintian standing balance using FWW for support while OT assisted pt with hygiene care and brief management. pt assisted back down on the bedside commode to rest. completed sit to stand again max A x 1-2 and max cues. attempted to ambulate using FWW but pt unable and stated that she has to sit down. pt with R AFO and LLE external rotation. pt has LLD and has difficulty in advancing BLE. completed sit to stand again requiring max A x 2 and max cues and completed step transfer to the chair using FWW max A x 2 and max cues. positioned pt on the chair. call light and table placed within reach. Gait Assessment Comments Gait Comments attempted but pt unable to complete despite max A x 2 provided M5 PT-IP Objective Assessments Start: 07/06/19 08:49 Freq: NEEDED Status: Discharge Protocol: Document 07/06/19 11:20 AW (Rec: 07/06/19 12:04 AW [id number]) Orientation Orientation/Cognition Level of Alertness Confusional State Orientation Name Language Function Ability Hard of Hearing Safety Awareness Decreased Safety Awareness Memory Description Short Term Impaired,Parboiler Impaired Comments Pt with advanced dementia. She was oriented to self and knew the name of the street where she resides but was otherwise not oriented. Gross Range of Motion Lower Extremity ROM Assessment Right Impaired Impairments Lacking DF and eversion R foot Strength Lower Extremity Strength Assessment Bilaterally Impaired Hip 4-/5 Knee L 4/5; R 4-/5 Ankle L4-/5; R 3-/5 Sensation Assessment Comments Sensation Comments Unable to assess due to cognition. M6 PT-IP Treatment Start: 07/06/19 08:49 Freq: NEEDED Status: Discharge Protocol: Document 07/10/19 10:15 AB (Rec: 07/10/19 12:11 AB [id number]) Physical Therapy Treatment Education Education Provided Safety M7 PT-IP Assessment and Plan Start: 07/06/19 08:49 Freq: NEEDED Status: Discharge Protocol: Document 07/10/19 10:15 AB (Rec: 07/10/19 12:11 AB [id number]) PT Summary Assessment and Plan Potential Rehabilitation Potential Fair Summary Impairments Pain,ROM,Strength,Balance, Coordination,Sensation,Tone, Cognition,Bed Mobility, Transfers,Gait,Activity Tolerance Progress Towards Goals Slow Progress due to Medical Issues Assessment Summary pt requiring [address] [facility] mobility and will require SNF rehab to improve strength and mobility. Goals Bed Mobility Goal Contact Guard Assistance Transfer Goal Minimal Assistance,Front Wheeled Walker Gait Goal Minimal Assistance,Front Wheel Walker Gait Distance 20 Days to Meet Goals 10 Frequency of Treatment Frequency Of Treatment Once a Day Treatment Plan Physical Therapy Treatment Plan Bed Mobility Training,Transfer Training,Gait Training, Therapeutic Exercise,Balance Retraining,Discharge Planning, Neuromuscular Re-ed, Coordination Retraining Recommendations To Nursing Amount of Assist Needed 2 Person Assist Discharge Recommendations PT Discharge Recommendations SNF Rehab Transportation Needs at Discharge Wheelchair/Cabulance
--- NOTE | 2019-07-10 10:41 | PC.NURSE ---
Addendum entered by Charley Alvarez R.N. 07/10/19 11:13: Pt out via w/c by [facility] transport with all belongings Original Note: Pt is packed up and ready to go. PT got patient up and she was able to void and have a bowel movement. Pt to be transferred to [facility] at 11am. Report called to [facility] and all questions were answered.
--- NOTE | 2019-07-10 10:49 | OT.IP.TRT ---
Current Diagnoses Urinary tract infection, site not specified (07/06/19) Occupational Therapy Treatment Note M2 OT-IP Current Condition Start: 07/06/19 14:20 Freq: Status: Active Protocol: Document 07/06/19 14:20 CGR (Rec: 07/06/19 14:34 CGR [id number]) Occupational Therapy Current Condition Current Condition Evaluation Date 07/06/19 Treatment Diagnosis UTI and new dx of DM Diagnosis Onset Date 07/05/19 M3 OT- IP Subjective and Pain Start: 07/06/19 14:20 Freq: Status: Active Protocol: Document 07/10/19 10:42 [facility] (Rec: 07/10/19 10:49 [facility] [id number]) OT- Subjective Occupational Therapy Visit Type Type Treatment Note Visit Start Time 10:04 Visit Stop Time 10:34 Total Visit Minutes 30 Notes HYPERION ADMINISTRATOR initially assisting for bed mobility needs and then PT came to assist. Occupational Therapy Visit Comments Patient Comments Encouraged pt to try to use the commode. Pt wondering if her dog was still around. Patient/Caregiver Goals Pt wanting to go home. OT Pain Assessment Pain When Pain Assessed At Rest Pain Present Pain Present Denied Pain M4 OT- IP ADL's Start: 07/06/19 14:20 Freq: Status: Active Protocol: Document 07/10/19 10:42 [facility] (Rec: 07/10/19 10:49 [facility] [id number]) OT DDD-Begu-Ubnyswa Comments OT Self-Feeding Comments Not meal time OT ADL-Grooming Comments OT Grooming Comments Set-up and able to wash her face and brush her hair while seated. OT ADL-Dressing General Eval Lower Body Dressing Ability Total Assistance Areas Needing Assistance Underpants/Brief,Socks,Shoes, Orthosis/Prosthesis OT ADL-Toileting General Evaluation Toileting Ability Total Assistance Areas Needing Assistance Manage Clothing,Perform Perineal Hygiene Devices Toileting Assistive Devices Commode Comments OT Toileting Comments Dependent for hygiene needs and brief management , while having another person assist to stand MAX A X 1 to FWW. OT ADL-Bathing Comments OT Bathing Comments Per HYPERION ADMINISTRATOR states pt had a sponge bath other day. M5 OT- IP IADL's Start: 07/06/19 14:20 Freq: Status: Active Protocol: Document 07/06/19 14:20 CGR (Rec: 07/06/19 14:34 CGR [email or web address]) OT-Instrumental Activities of Daily Living Deficits IADL Deficits Identified Deficits Home Safety Awareness Awareness of Need for Assistance at Home Decreased Awareness Ability to Problem Solve Emergency Unable to Problem Solve Situations Medication Management Medication Management Caregiver Administers Money Management Money Management Caregiver Provides Assistance Meal Preparation Meal Preparation Caregiver Provides Assist Tile Mason Tile Mason Caregiver Provides Assist Driving Driving Comments Pt does not drive. M6 OT- IP Functional Cognition Start: 07/06/19 14:20 Freq: Status: Active Protocol: Document 07/10/19 10:42 [facility] (Rec: 07/10/19 10:49 [facility] [id number]) Cognitive Factors Limiting Selfcare Function Cognitive Ability Level of Alertness Alert,Confusional State Patient Orientation Name Attention Span Ability Capable of Focused Attention, Capable of Sustained Attention Ability to Follow Commands Able to Follow One Step Commands with Increased Time, Able to Follow One Step Commands with Repetition Memory Description Immediate Impaired,Short Term Impaired,Custodial Intact, Working Impaired Safety Awareness Underestimates Need for Assistance Problem Solving Ability Unable to Identify Errors, Needs Assist to Identify Solutions Cognitive Comments Cognitive Assessment Comments Pt orientated to her name, birthday, and city at this time. Pt able to follow commands for toileting and mobility needs. M7 OT- IP Mobility and Balance Start: 07/06/19 14:20 Freq: Status: Active Protocol: Document 07/10/19 10:42 [facility] (Rec: 07/10/19 10:49 [facility] [id number]) OT- Bed Mobility Assessment Supine to Sit Supine to Sit Assist Moderate Assistance,2 Person Assistance,Head of Bed Elevated,Bedrails OT-Transfer Assessment Sit to and From Stand Sit to and from Stand Moderate Assistance,2 Person Assistance Transfers Transfer Ability Moderate Assistance,Maximum Assistance,2 Person Assistance Technique Transfer Destination Bed,Bedside Commode,Chair Devices Transfer Assistive Devices Gait Belt,Front Wheeled Walker Comments Mobility Comments Initially pt needing MODA X2 with FWW to transfer and noted able to picker / packer her feet better however, as she tires, pt needing more assist MAX A X 2 with FWW assist to guide FWW, balance and cues to picker / packer her feet. Pt not able to tolerate any walking today and just able to tolerate transfer to [facility] and then recliner. OT- Balance Assessment Sitting Balance and Reactions Static Sitting Balance Ability Fair Standing Balance and Reactions Static Standing Balance Ability Poor M8 OT- IP Objective Assessments Start: 07/06/19 14:20 Freq: Status: Active Protocol: Document 07/06/19 14:20 CGR (Rec: 07/06/19 14:34 CGR [email or web address]) OT Gross Range of Motion Upper Extremity Range of Motion Assessment Bilaterally Impaired ROM Impairments R shld 0-75 L shld 0-90 OT Strength Comments Strength Comments grossly 4/5 to hands and arms. shld's not tested. OT- Coordination Assessment Upper Extremity Finger to Nose Test Bilateral UE Impaired Finger Tapping Test Bilateral UE Impaired Comments Coordination Comments Pt unable to get finger to nose. Nursing reported similar experience with brushing teeth this AM. OT-Muscle Tone Assessment Muscle Tone WNL Yes OT Sensation Assessment Edema Edema Absent M9 OT- IP Assessment and Plan Start: 07/06/19 14:20 Freq: Status: Active Protocol: Document 07/10/19 10:42 [facility] (Rec: 07/10/19 10:49 [facility] [id number]) OT Summary Assessment and Plan Potential Rehabilitation Potential Fair Analytic Complexity at Evaluation Moderate Summary OT Impairments Pain,Balance,Coordination, Functional Cognition, Functional Mobility,Grooming, Dressing,Toileting,Bathing, Toilet Transfers,Shower Transfers,Activity Tolerance Progress Towards Goals Slow Progress due to Activity Tolerance,Slow Progress due to Cognition Assessment Summary Pt states did not sleep well and feels tired and therefore just able to tolerate transfers to [facility] and then recliner. Pt looking to discharge to skilled rehab today. Discharge Recommendations OT Discharge Recommendations SNF Rehab Other Discharge Recommendations After SNF, may pending progress pt may end of benefiting from LTC. Home Equipment Needs TBD Transportation Needs at Discharge Wheelchair/Cabulance
--- NOTE | 2019-07-12 15:18 | P.PN_ITS ---
Subjective Subjective Date Patient Seen: 07/09/19 Time Patient Seen: 13:00 Interval history: Abbey Baptiste is a 78 year old female with PMH of dementia, HTN, HLD who presented with worsening weakness over the past few days as per reports by her . She was found to have a UTI and was started on antibiotics She is medically ready for discharge to prison. She denies complaints today other than continued weakness. Exam Vital Signs (past 8 hours): Oxygen Delivery Method Room Air Oxygen Flow Rate 0 Narrative Exam Narrative: GENERAL APPEARANCE: Well developed, well nourished, in no acute distress. SKIN: Inspection of the skin reveals no rashes, ulcerations or petechiae. HEENT: Normocephalic atraumatic, extraocular muscles are intact, oropharynx is clear and mucous membranes are moist, neck is supple without adenopathy NECK: Supple and symmetric. There was no thyroid enlargement, and no tenderness, or masses were felt. CHEST: Normal AP diameter and normal contour without any kyphoscoliosis. LUNGS: Auscultation of the lungs revealed no wheezes, rhonchi, or rales. CARDIOVASCULAR: There was a regular rate and rhythm without any murmurs, gallops, rubs. Peripheral pulses were 2+ and symmetric. ABDOMEN: Soft and nontender with normal bowel sounds. No ascites was noted. MUSCULOSKELETAL: There was no tenderness or effusions noted. Muscle tone was normal. Strength +5/5 in bilateral upper and lower extremities however RUE is weaker compared to the L (Chronic) EXTREMITIES: No cyanosis, clubbing or edema. NEUROLOGIC: Alert and oriented x 2. Normal affect. cognitive impairment is evident. Objective Labs Result Diagrams: 07/06/19 07:42 07/06/19 07:42 Assessment & Plan Assessment & Plan narrative: Abbey Baptiste is a 78 year old female with PMH of dementia, HTN, HLD who presented with worsening weakness over the past few days as per reports by her . She was found to have a UTI and was started on IV ceftriaxone. 1. Toxic metabolic encephalopathy, acute, present on admission -likely secondary to urinary tract infection. Has been started on IV antibiotics. There is some improvement in cognition but she is still profoundly weak. -this may also represent progressive dementia, however there has been an acute change per the , and this will take time to evaluate. 2. Urinary tract infection, acute, present on admission -patient received ceftriaxone IV, will continue will 3 additional days of cefdinir -patient with encephalopathy as noted above as well as reported urinary frequency. -urine culture grew mixed carlitos. 3. New diagnosis of diabetes type 2, likely chronic, present on admission -initial blood glucoses were elevated in August, normalized than consistently elevated since March of this year -she has been put on ACHS glucose checks and a carb controlled diet with low- dose correctional insulin. -A1c of 6.6. Given age of 78, chronic comorbidities including hypertension, hyperlipidemia, and dementia would not initiate outpatient oral therapy at this time. 4. Hypertension, present on admission, chronic -continue home medications 5. Hyperlipidemia, chronic, present on admission -continue home statin 6. Advanced dementia, present on admission -can continue home donepezil Code: DNR Dispo: Changed to inpatient status, likely discharge to prison facility. was interested in transitioning to comfort care given decline in her mental status. However, will need to see if this acute changes due to her urinary tract infection and will take time to assess whether she recovers are not. Likely will discharge to prison facility. If there is no improvement in her status the is definitely interested in hospice consultation.
== END 2019-07-10 11:13 | DRG 689 ==
LOC: ED 12:55 → AC 13:09
PROVIDERS: Nurse Practitioner Family; Admitting Provider Internal Medicine; Emergency Provider Emergency Medicine; Family Provider Internal Medicine; PCP Internal Medicine; Referring Provider Emergency Medicine; Visit Provider Internal Medicine
DX: N39.0 Urinary tract infection, site not specified (principal); G93.41 Metabolic encephalopathy; E11.9 Type 2 diabetes mellitus without complications; F03.90 Unspecified dementia, unspecified severity, without behavioral disturbance, psychotic disturbance, mood disturbance, and anxiety; F32.9 Major depressive disorder, single episode, unspecified; I10 Essential (primary) hypertension; E78.5 Hyperlipidemia, unspecified; K21.9 Gastro-esophageal reflux disease without esophagitis; N32.81 Overactive bladder; Z66 Do not resuscitate; Z11.59 Encounter for screening for other viral diseases
CPT/HCPCS: 36415; 70450; 71045; 80048; 80053; 81003; 81015; 82550; 82962; 83036; 84484; 85025; 85610; 85730; 87086; 87635; 93005; 96361; 96365; 97110; 97116; 97162; 97166; 97530; 97535; 99285; G0378; J2405

== ENCOUNTER 2019-11-12 15:50 | Observation (INO) | payer MEDICARE, SELFPAY ==
[2019-07-05 14:10] VITALS: BMI 31.3
[2019-11-12 15:58] VITALS: BP 192/90; PULSE 69; RESP 20; TEMP 36.5; O2SAT 99
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
[2019-11-12 16:37] LABS: RBC Urine None Seen (0-5/HPF)
[2019-11-12 16:41] LABS: Appearance Urine UA CLEAR; Bilirubin Urine UA NEGATIVE (NEGATIVE); Color Urine UA YELLOW; Glucose Urine UA NEGATIVE (Negative); Ketones Urine UA NEGATIVE (NEGATIVE); Leukocyte Esterase Urine UA TRACE (NEGATIVE); Nitrite Urine UA NEGATIVE (Negative); Occult Blood Urine UA NEGATIVE (Negative); Protein Urine UA NEGATIVE (Negative); Specific Gravity Urine UA 1.015 (1.000-1.035); Urobilinogen Urine UA 0.2 E.U./dL (0.2)
[2019-11-12 16:54] LABS: UR Morphine/Opiate cutoff 300 Negative (Negative); Ur Creatinine Normal (Normal); Ur Specific Gravity Normal (Normal); Urine Amphetamines Negative (Negative); Urine Barbiturates Negative (Negative); Urine Benzodiazepines Negative (Negative); Urine Cocaine Negative (Negative); Urine MDMA Negative (Negative); Urine Methadone Negative (Negative); Urine Methamphetamines Negative (Negative); Urine Phencyclidine Negative (Negative); Urine Tetrahydrocannabinol Negative (Negative); Urine pH Normal (Normal)
[2019-11-12 16:55] LABS: Urine Oxycodone Negative (Negative); Urine Tricyclic Antidepressant Negative (Negative)
[2019-11-12 17:04] LABS: Amorphous Sediment Urine 1+; Squamous Epithelial Cell Urine 1-5 /HPF (0-5/HPF); WBC Urine 1-5/HPF (0-5/HPF)
[2019-11-12 17:05] LABS: Bacteria Urine Occasional (0-1); Culture Indicated Urine Specimen Cultured
--- NOTE | 2019-11-12 18:16 | DI.CT.S_ITS ---
PROCEDURE: CT HEAD/BRAIN WO CON INDICATIONS: confusion TECHNIQUE: Noncontrast 4.5 mm thick angled axial sections acquired from the foramen magnum to the vertex, with coronal and sagittal reformats. For radiation dose reduction, the following was used: automated exposure control, adjustment of mA and/or kV according to patient size. COMPARISON: [facility], MR, BRAIN WITHOUT CONTRAST, 06/10/2015, 17:50. [facility], CT, CT HEAD/BRAIN WO CON, 07/05/2019, 9:47. FINDINGS: Image quality: Excellent. CSF spaces: Basal cisterns are patent. No extra-axial fluid collections. The ventricles are symmetric in size and shape. Brain: No intracranial bleeds or masses. Probable old lacunar infarcts versus dilated perivascular space in the left basal ganglia. There is moderate to severe cerebral volume loss for age, with resultant ventricular and sulcal prominence. There are moderate periventricular and deep white matter chronic small vessel ischemic changes. There is intracranial internal carotid artery atherosclerosis. Skull and face: Calvarium and visualized facial bones appear intact, without suspicious lesions. Sinuses: Visualized sinuses and mastoids are clear. IMPRESSION: 1. No acute intracranial abnormalities. 2. Cerebral volume loss and chronic microvascular ischemic changes. Dictated by: Lisa Ruth M.D. on 11/12/2019 at 18:41 Approved by: Lisa Ruth M.D. on 11/12/2019 at 18:43
[2019-11-12 18:22] LABS: Add Manual Diff / Slide Review NO; Basophils Absolute Auto 100 /uL (0-100); Eosinophils Absolute Auto 200 /uL (0-450); Eosinophils Percent Auto 1.7 % (2-4); Hematocrit 39.5 % (36-46); Hemoglobin 13.7 g/dL (12.0-16.0); Lymphocytes Absolute Auto 2000 /uL (1100-4500); Mean Corpuscular HGB Conc 34.6 % (30-36); Mean Corpuscular Volume 89.7 fL (80-100); Monocytes Absolute Auto 600 /uL (0-900); Monocytes Percent Auto 6.6 % (3-14); Neutrophils Absolute Auto 5900 /uL (1500-7000); Neutrophils Percent Auto 67.7 % (50-75); Platelet Count 210 X10^3/uL (150-400); Red Cell Distribution Width 13.9 % (11.6-14.8); White Blood Cell Count 8.7 X10^3/uL (4.5-11.0)
[2019-11-12 18:32] LABS: Alanine Aminotransferase 14 IU/L (<35); Albumin 4.3 g/dL (3.5-5.0); Albumin Globulin Ratio 1.4 (1.0-2.8); Alkaline Phosphatase 75 U/L (38-126); Aspartate Aminotransferase 29 IU/L (14-36); BUN Creatinine Ratio 24.2 (6-22); Bilirubin Total 0.7 mg/dL (0.2-1.3); Blood Urea Nitrogen 15 mg/dL (7-17); Calcium 9.6 mg/dL (8.4-10.2); Carbon Dioxide 29 mmol/L (22-32); Chloride 96 mmol/L (98-107); Creatine Kinase 45 U/L (30-135); Estimated Glomerular Filt Rate > 60.0 mL/min (>60); Globulin 3.1 g/dL (1.7-4.1); Glucose 107 mg/dL (80-110); Sodium 132 mmol/L (137-145); Total Protein 7.4 g/dL (6.3-8.2)
[2019-11-12 18:33] LABS: Lactate (Lactic Acid) 1.4 mmol/L (0.7-2.1)
[2019-11-12 18:34] LABS: HEMOLYSIS 118 (0-50); Potassium 4.6 mmol/L (3.4-5.1)
[2019-11-12 18:35] LABS: PTT Partial Thromboplastin Tim 33 SECONDS (26.4-36.2)
[2019-11-12 18:44] LABS: Troponin I < 0.012 ng/mL (0.01-0.034)
[2019-11-12 19:03] LABS: Prolactin 16.3 ng/mL (3.0-18.6)
[2019-11-12 19:06] LABS: Procalcitonin < 0.05 ng/mL (<0.5)
[2019-11-12 19:09] LABS: Thyroid Stimulating Hormone 2.94 uIU/mL (0.47-4.68)
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
--- NOTE | 2019-11-12 21:28 | ED.AMS ---
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 Urine Urobilinogen 0.2 (0.2) E.U./dL Ur Leukocyte Esterase Trace H (NEGATIVE) Urine RBC None seen (0-5/HPF) Urine WBC 1-5/hpf (0-5/HPF) Ur Squamous Epith Cells 1-5 /hpf (0-5/HPF) Amorphous Sediment 1+ Urine Bacteria Occasional (0-1) D (None) Ur Culture Indicated? Specimen cultured U Opiates 300ng/mL cut Negative (Negative) Ur Oxycodone Screen Negative (Negative) Urine Methadone Screen Negative (Negative) Ur Barbiturates Screen Negative (Negative) U Tricyclic Antidepress Negative (Negative) Ur Phencyclidine Scrn Negative (Negative) Ur Amphetamines Screen Negative (Negative) U Methamphetamines Scrn Negative (Negative) Ur MDMA Scrn (Ecstasy) Negative (Negative) U Benzodiazepines Scrn Negative (Negative) Urine Cocaine Screen Negative (Negative) U Marijuana (THC) Screen Negative (Negative) 11/12/19 11/12/19 11/12/19 Range/Units 18:07 18:07 18:07 WBC (4.5-11.0) X10^3/uL RBC (4.0-5.2) X10^6/uL Hgb (12.0-16.0) g/dL Hct (36-46) % MCV (80-100) fL MCH (26-34) PG MCHC (30-36) % RDW (11.6-14.8) % Plt Count (150-400) X10^3/uL Neut % (Auto) (50-75) % Lymph % (Auto) (25-40) % [place] % (Auto) (3-14) % Eos % (Auto) (2-4) % Baso % (Auto) (0-2) % Neut # (Auto) (0893-1694) /uL Lymph # (Auto) (9839-6498) /uL [place] # (Auto) (0-900) /uL Eos # (Auto) (0-450) /uL Baso # (Auto) (0-100) /uL PT 11.0 (10.1-12.7) SECONDS INR 1.0 (0.9-1.3) APTT 33 D (26.4-36.2) SECONDS Sodium 132 L (137-145) mmol/L Potassium 4.6 (3.4-5.1) mmol/L Chloride 96 L (98-107) mmol/L Carbon Dioxide 29 (22-32) mmol/L BUN 15 (7-17) mg/dL Creatinine 0.62 (0.52-1.04) mg/dL Estimated GFR > 60.0 (>60) mL/min BUN/Creatinine Ratio 24.2 H (6-22) Glucose 107 (80-110) mg/dL Lactate (0.7-2.1) mmol/L Calcium 9.6 (8.4-10.2) mg/dL Total Bilirubin 0.7 (0.2-1.3) mg/dL AST 29 (14-36) IU/L ALT 14 (<35) IU/L Alkaline Phosphatase 75 (38-126) U/L Total Creatine Kinase 45 (30-135) U/L CK-MB (CK-2) TNP CK-MB (CK-2) Rel Index TNP Troponin I < 0.012 (0.01-0.034) ng/mL Total Protein 7.4 (6.3-8.2) g/dL Albumin 4.3 (3.5-5.0) g/dL Globulin 3.1 (1.7-4.1) g/dL Albumin/Globulin Ratio 1.4 (1.0-2.8) Procalcitonin < 0.05 (<0.5) ng/mL TSH (0.47-4.68) uIU/mL Prolactin 16.3 (3.0-18.6) ng/mL Urine Color Urine Appearance Urine pH (4.5-8.0) Ur Specific [place] (1.000-1.035) Urine Protein (Negative) Urine Glucose (UA) (Negative) g/dL Urine Ketones (NEGATIVE) Urine Occult Blood (Negative) Urine Nitrate (Negative) Urine Bilirubin (NEGATIVE) Urine Urobilinogen (0.2) E.U./dL Ur Leukocyte Esterase (NEGATIVE) Urine RBC (0-5/HPF) Urine WBC (0-5/HPF) Ur Squamous Epith Cells (0-5/HPF) Amorphous Sediment Urine Bacteria (None) Ur Culture Indicated? U Opiates 300ng/mL cut (Negative) Ur Oxycodone Screen (Negative) Urine Methadone Screen (Negative) Ur Barbiturates Screen (Negative) U Tricyclic Antidepress (Negative) Ur Phencyclidine Scrn (Negative) Ur Amphetamines Screen (Negative) U Methamphetamines Scrn (Negative) Ur MDMA Scrn (Ecstasy) (Negative) U Benzodiazepines Scrn (Negative) Urine Cocaine Screen (Negative) U Marijuana (THC) Screen (Negative) 11/12/19 11/12/19 Range/Units 18:07 18:07 WBC (4.5-11.0) X10^3/uL RBC (4.0-5.2) X10^6/uL Hgb (12.0-16.0) g/dL Hct (36-46) % MCV (80-100) fL MCH (26-34) PG MCHC (30-36) % RDW (11.6-14.8) % Plt Count (150-400) X10^3/uL Neut % (Auto) (50-75) % Lymph % (Auto) (25-40) % [place] % (Auto) (3-14) % Eos % (Auto) (2-4) % Baso % (Auto) (0-2) % Neut # (Auto) (3578-4428) /uL Lymph # (Auto) (7903-8493) /uL [place] # (Auto) (0-900) /uL Eos # (Auto) (0-450) /uL Baso # (Auto) (0-100) /uL PT (10.1-12.7) SECONDS INR (0.9-1.3) APTT (26.4-36.2) SECONDS Sodium (137-145) mmol/L Potassium (3.4-5.1) mmol/L Chloride (98-107) mmol/L Carbon Dioxide (22-32) mmol/L BUN (7-17) mg/dL Creatinine (0.52-1.04) mg/dL Estimated GFR (>60) mL/min BUN/Creatinine Ratio (6-22) Glucose (80-110) mg/dL Lactate 1.4 (0.7-2.1) mmol/L Calcium (8.4-10.2) mg/dL Total Bilirubin (0.2-1.3) mg/dL AST (14-36) IU/L ALT (<35) IU/L Alkaline Phosphatase (38-126) U/L Total Creatine Kinase (30-135) U/L CK-MB (CK-2) CK-MB (CK-2) Rel Index Troponin I (0.01-0.034) ng/mL Total Protein (6.3-8.2) g/dL Albumin (3.5-5.0) g/dL Globulin (1.7-4.1) g/dL Albumin/Globulin Ratio (1.0-2.8) Procalcitonin (<0.5) ng/mL TSH 2.94 (0.47-4.68) uIU/mL Prolactin (3.0-18.6) ng/mL Urine Color Urine Appearance Urine pH (4.5-8.0) Ur Specific [place] (1.000-1.035) Urine Protein (Negative) Urine Glucose (UA) (Negative) g/dL Urine Ketones (NEGATIVE) Urine Occult Blood (Negative) Urine Nitrate (Negative) Urine Bilirubin (NEGATIVE) Urine Urobilinogen (0.2) E.U./dL Ur Leukocyte Esterase (NEGATIVE) Urine RBC (0-5/HPF) Urine WBC (0-5/HPF) Ur Squamous Epith Cells (0-5/HPF) Amorphous Sediment Urine Bacteria (None) Ur Culture Indicated? U Opiates 300ng/mL cut (Negative) Ur Oxycodone Screen (Negative) Urine Methadone Screen (Negative) Ur Barbiturates Screen (Negative) U Tricyclic Antidepress (Negative) Ur Phencyclidine Scrn (Negative) Ur Amphetamines Screen (Negative) U Methamphetamines Scrn (Negative) Ur MDMA Scrn (Ecstasy) (Negative) U Benzodiazepines Scrn (Negative) Urine Cocaine Screen (Negative) U Marijuana (THC) Screen (Negative) Point of Care Testing Glucose POC 109 Discharge Plan Departure Patient Disposition: Admitted as Observation Clinical Impression: Altered mental status Qualifiers: Altered mental status type: unspecified Qualified Code(s): R41.82 - Altered mental status, unspecified Dementia Qualifiers: Dementia type: Alzheimer's disease Alzheimer's disease onset: unspecified onset Dementia behavioral disturbance: with behavioral disturbance Qualified Code(s): G30.9 - Alzheimer's disease, unspecified Referrals: Chin Bales MD [Primary Care Provider] - Admit Date/Time: 11/12/19 21:44 Admit Provider: Juliano Hilton <Martinez Degroot DO - Last Filed: 11/12/19 22:48> Cosign ED Attending Cosignature Attestation: Dr Degroot Co-Sign Statement: I was available for consultation during this patient's emergency department visit. This chart is signed by myself for administrative purposes only. I did not have direct contact with this patient during this visit. They were seen independently by the APC.
[2019-11-12 22:28] VITALS: BP 178/79; PULSE 84; O2SAT 94
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
[2019-11-12 22:52] LABS: COVID19 -Nasal RAPID Negative (Negative)
[2019-11-12] MEDS: DONEPEZIL 5 MG TABLET PO (23:01)
[2019-11-12] MEDS: ATORVASTATIN 10 MG TABLET PO (23:01)
[2019-11-12] MEDS: SERTRALINE 50 MG TABLET 100 MG PO (23:01)
[2019-11-12] MEDS: QUETIAPINE 25 MG TABLET PO (23:02)
[2019-11-12 23:45] VITALS: BP 162/79; PULSE 62; RESP 18; TEMP 36.5; O2SAT 94
[2019-11-12 23:56] VITALS: BMI 27.4
[2019-11-13] VITALS (10 sets, daily range): BP systolic 120–139; BP diastolic 56–72; PULSE 54–56; RESP 16–19; TEMP 35.8–36.7; O2SAT 94–96
[2019-11-13] MEDS: MELATONIN 3 MG TABLET 6 MG PO ×2 (01:13→20:35)
--- NOTE | 2019-11-13 03:49 | PC.NURSE ---
[id number] admitted to [facility] 213 from ER, pt. dis-oriented to time & place. Not a good historian, needs frequent re-orientation to time, place & situation. Did not C/O pain on admit, 2 persons assist to get up OOO to BSC. Wears a brace to her RLE, bed alarm activated. WIll cont. POC & monitor.
[2019-11-13 06:36] LABS: Add Manual Diff / Slide Review NO; Basophils Absolute Auto 100 /uL (0-100); Basophils Percent Auto 0.8 % (0-2); Eosinophils Absolute Auto 100 /uL (0-450); Eosinophils Percent Auto 1.6 % (2-4); Hematocrit 37.7 % (36-46); Hemoglobin 12.8 g/dL (12.0-16.0); Lymphocytes Absolute Auto 2000 /uL (1100-4500); Lymphocytes Percent Auto 21.7 % (25-40); Mean Corpuscular Volume 91.1 fL (80-100); Monocytes Absolute Auto 700 /uL (0-900); Monocytes Percent Auto 7.3 % (3-14); Neutrophils Absolute Auto 6300 /uL (1500-7000); Neutrophils Percent Auto 68.6 % (50-75); Platelet Count 191 X10^3/uL (150-400); Red Blood Cell Count 4.14 X10^6/uL (4.0-5.2); Red Cell Distribution Width 13.8 % (11.6-14.8); White Blood Cell Count 9.2 X10^3/uL (4.5-11.0)
[2019-11-13 06:51] LABS: BUN Creatinine Ratio 18.3 (6-22); Blood Urea Nitrogen 13 mg/dL (7-17); Calcium 9.5 mg/dL (8.4-10.2); Carbon Dioxide 32 mmol/L (22-32); Chloride 95 mmol/L (98-107); Estimated Glomerular Filt Rate > 60.0 mL/min (>60); Glucose 120 mg/dL (80-110); HEMOLYSIS < 15 (0-50); Potassium 3.8 mmol/L (3.4-5.1); Sodium 132 mmol/L (137-145)
[2019-11-13 07:10] LABS: Hemoglobin A1C% w Est Avg Glu 6.2 % (4.0-6.0)
[2019-11-13] MEDS: LOSARTAN 50 MG TABLET PO (10:40)
[2019-11-13] MEDS: ENOXAPARIN 40 MG/0.4 ML SYRINGE SUBCUT (10:40)
[2019-11-13] MEDS: TOLTERODINE LA 2 MG CAP PO (10:41)
[2019-11-13] MEDS: PROPRANOLOL ER 60 MG CAPSULE PO (10:41)
--- NOTE | 2019-11-13 12:22 | OT.IP.EVAL ---
Past Medical History (Last Reviewed 11/13/19 @ 04:08 by ARMANDO Conley) Chronic constipation (Chronic) Depression (Chronic) Excessive daytime sleepiness (Chronic) GERD (gastroesophageal reflux disease) (Acute) HTN (hypertension) (Chronic) Long-term memory impairment (Chronic) Neuropathy (Chronic) Obstructive sleep apnea of adult (Chronic ~1999) Primary insomnia (Chronic) Snoring (Chronic) Surgical History (Last Reviewed 11/13/19 @ 04:08 by ARMANDO Conley) Status post laminectomy (Acute) Status post surgery (11/06/15) Status post tubal ligation Occupational Therapy Inpatient Evaluation/Re-Eval M1 PT/OT-IP Prior Functional Status Start: 11/13/19 13:05 Freq: NEEDED Status: Active Protocol: Document 11/13/19 11:40 [facility] (Rec: 11/13/19 14:39 [facility] [id number]) Medical Review Prior Functional Status Medical History Reviewed No Diet/Fluid Consistency Regular Communication pt has advanced dementia. Able to follow simple command Mobility and Gait Per EMR, pt amb household distances with 4WW with supervision who sometimes needed W/C to follow d/t hx of falls. Pt was able to transfer w/c <>toilet with CGA/ min A with grab bars. Pt used a lift recliner often and did min A to stand up . Pt uses her brace on R for R foot drop for mobility. Activities of Daily Living and IADL's Spouse assists with all dressing tasks and sponge bath . Pt needed assistance to cut up food sometimes. Gigi states Park has been able to transfer for toileting with CGa/min A with grab bars Prior Functional Level (Other details) Spouse cuts up pt food but that she is otherwise indpendent with feeding without signs of aspiration. Pt has had [facility] before. Social History Household Members spouse Living Arrangements House Number of Floors (Floors) One Floor Number of Stairs To Enter/Railing? no stairs Home Environment High Toilet,Walk in Shower Home Equipment Four Wheel Walker,Manual Wheelchair,Raised Toilet Seat w/Armrests,Hand Held Shower, Lift Recliner,Grab Bars Near Toilet,Grab Bars In Shower Additional Social History Comment pt's Gigi has been a CG for pt for years. He states as long as Park is able to transfer, he is able to help her at home. M2 OT-IP Current Condition Start: 11/13/19 13:05 Freq: Status: Active Protocol: Document 11/13/19 11:40 [facility] (Rec: 11/13/19 14:39 [facility] [id number]) Occupational Therapy Current Condition Current Condition Evaluation Date 11/13/19 Treatment Diagnosis Altered mental status, decreased mobility Diagnosis Onset Date 11/12/19 M3 OT- IP Subjective and Pain Start: 11/13/19 13:05 Freq: Status: Active Protocol: Document 11/13/19 11:40 [facility] (Rec: 11/13/19 14:39 [facility] [id number]) OT- Subjective Occupational Therapy Visit Type Type Initial Evaluation Visit Start Time 11:40 Visit Stop Time 12:22 Total Visit Minutes 42 Occupational Therapy Visit Comments Patient Comments Pt's and PT present for OT /PT eval to help determine whether pt 's able to safely take pt home. Patient/Caregiver Goals Pt's states does not feel comfortable to be able to care for his at this time. OT Pain Assessment Pain When Pain Assessed At Rest Pain Present Pain Present Denied Pain M4 OT- IP ADL's Start: 11/13/19 13:05 Freq: Status: Active Protocol: Document 11/13/19 11:40 [facility] (Rec: 11/13/19 14:39 [facility] [id number]) OT GQA-[id number]-Uynnpdi Comments OT Self-Feeding Comments Initially when PT handing her the utensils trying to open her mouth to lean towards it in stead of grabbing the spoon with her hands. OT ADL-Grooming Comments OT Grooming Comments Not performed. OT ADL-Oral Care Comments Oral Care Comments Not performed. OT ADL-Dressing General Eval Upper Body Dressing Ability Maximum Assistance Lower Body Dressing Ability Maximum Assistance,Total Assistance Areas Needing Assistance Underpants/Brief,Socks Comments OT Dressing Comments Pt dependent for all LB dressing needs , including her right AFO brace at this time due to having trouble following directions. OT ADL-Toileting General Evaluation Toileting Ability Total Assistance Areas Needing Assistance Manage Clothing,Perform Perineal Hygiene Devices Toileting Assistive Devices Commode Comments OT Toileting Comments Pt needing one person to assist to help stand pt and another person to assist for hygiene needs. OT ADL-Bathing Comments OT Bathing Comments Not performed. M5 OT- IP IADL's Start: 11/13/19 13:05 Freq: Status: Active Protocol: Document 11/13/19 11:40 [facility] (Rec: 11/13/19 14:39 [facility] [id number]) OT-Instrumental Activities of Daily Living Deficits IADL Deficits Identified Deficits Home Safety Awareness Awareness of Need for Assistance at Home Decreased Awareness Ability to Problem Solve Emergency Unable to Problem Solve Situations Medication Management Medication Management Caregiver Administers Money Management Money Management Caregiver Provides Assistance Meal Preparation Meal Preparation Caregiver Provides Assist Foundry Technician Foundry Technician Caregiver Provides Assist Driving Driving Caregiver Provides Assist M6 OT- IP Functional Cognition Start: 11/13/19 13:05 Freq: Status: Active Protocol: Document 11/13/19 11:40 [facility] (Rec: 11/13/19 14:39 [facility] [id number]) Cognitive Factors Limiting Selfcare Function Cognitive Ability Level of Alertness Confusional State Patient Orientation Name Attention Span Ability Unable to Focus,Unable to Sustain Attention Ability to Follow Commands Able to Follow One Step Commands with Increased Time, Able to Follow One Step Commands with Repetition Memory Description Immediate Impaired,Short Term Impaired,Working Impaired Safety Awareness Underestimates Need for Assistance Cognitive Comments Cognitive Assessment Comments Pt mainly just orientated to name and though her was her father. Pt needing step by step instructions to follow at this time. Pt is also very groggy and having difficulty to stay awake. M7 OT- IP Mobility and Balance Start: 11/13/19 13:05 Freq: Status: Active Protocol: Document 11/13/19 11:40 [facility] (Rec: 11/13/19 14:39 [facility] [id number]) OT- Bed Mobility Assessment Rolling Type of Rolling Roll to Right Level of Assistance Moderate Assistance Supine to Sit Supine to Sit Assist Maximum Assistance OT-Transfer Assessment Sit to and From Stand Sit to and from Stand Maximum Assistance Transfers Transfer Ability Maximum Assistance,2 Person Assistance Technique Transfer Destination Bed,Chair Devices Transfer Assistive Devices Gait Belt,Front Wheeled Walker Comments Mobility Comments Pt MAX A for bed mobility and pt's having difficulty to get her up and tends to just pull on her arm to assist . Pt states prior pt just pops up in the bed and able to get to the edge of the bed on her own. MAX A X 1 to stand and two person assist for transfer one to assist with balance and another to help guide the FWW and assist for balance. Able to educated pt's to ari/doff gait belt and recommended that he hold to the gait belt versus her right arm when trying to assist to get her up. OT- Gait Assessment Comments Gait Ability Comments Transfer only at this time. OT- Balance Assessment Sitting Balance and Reactions Static Sitting Balance Ability Fair Standing Balance and Reactions Static Standing Balance Ability Poor M8 OT- IP Objective Assessments Start: 11/13/19 13:05 Freq: Status: Active Protocol: Document 11/13/19 11:40 [facility] (Rec: 11/13/19 14:39 [facility] [id number]) OT Gross Range of Motion Upper Extremity Range of Motion Assessment Right Impaired OT Strength Comments Strength Comments Not able to formally assess at least 3+/5. M9 OT- IP Assessment and Plan Start: 11/13/19 13:05 Freq: Status: Active Protocol: Document 11/13/19 11:40 [facility] (Rec: 11/13/19 14:39 [facility] [id number]) OT Summary Assessment and Plan Potential Rehabilitation Potential Fair Analytic Complexity at Evaluation Low Summary OT Impairments Balance,Coordination, Functional Cognition, Functional Mobility,Self- Feeding,Grooming,Dressing, Toileting,Bathing,Toilet Transfers,Shower Transfers, Activity Tolerance Progress Towards Goals Slow Progress due to Medical Issues,Slow Progress due to Activity Tolerance,Slow Progress due to Cognition Assessment Summary Pt low complexity increased altered mental status and now pt's not able to care for her at this time. Pt very groggy and having trouble following directions. Pt's states prior only having to assist pt min-MODA for all needs. Currently pt now needing MAX AX 2 for all ADL and functional mobility needs and pt now requiring too great of care for to assist. Pt would benefit from a [facility] care facility at this time unless pt's is able to hired / caregivers to assist him at home. Goals Grooming Goal Standby Assistance Dressing Goal Moderate Assistance Toileting Goal Moderate Assistance Bathing Goal Moderate Assistance Toilet Transfer Goal Moderate Assistance Shower Transfer Goal Moderate Assistance Days to Meet Goals 15 Frequency of Treatment Frequency Of Treatment Once a Day Treatment Plan OT Treatment Plan ADL Training,Functional Cognition Training,Functional Mobility,Patient/Family Education,Discharge Planning Other Treatment Recommendations and Next Pt able to eat after set-up Treatment Focus with min vc to help sequence through the task. Discharge Recommendations OT Discharge Recommendations SNF Rehab,[facility] Other Discharge Recommendations Pt would benefit from initial skilled rehab to help improve overall mobility needs , however afterwards would benefit from addition assist at home 19/09 in addition to her or emt intermediate care . Transportation Needs at Discharge Wheelchair/Cabulance
--- NOTE | 2019-11-13 13:12 | PT.IIE ---
Surgical History (Last Reviewed 11/13/19 @ 04:08 by ARMANDO Conley) Status post laminectomy (Acute) Status post surgery (11/06/15) Status post tubal ligation Medical History (Last Reviewed 11/13/19 @ 04:08 by ARMANDO Conley) Chronic constipation (Chronic) Depression (Chronic) Excessive daytime sleepiness (Chronic) GERD (gastroesophageal reflux disease) (Acute) HTN (hypertension) (Chronic) Long-term memory impairment (Chronic) Neuropathy (Chronic) Obstructive sleep apnea of adult (Chronic ~1999) Primary insomnia (Chronic) Snoring (Chronic) Physical Therapy Inpatient Evaluation/Re-Eval M1 PT/OT-IP Prior Functional Status Start: 11/13/19 08:50 Freq: NEEDED Status: Active Protocol: Document 11/13/19 12:35 [facility] (Rec: 11/13/19 13:12 [facility] [id number]) Medical Review Prior Functional Status Medical History Reviewed No Diet/Fluid Consistency Regular Communication pt has advanced demential. Able to follow simple command Mobility and Gait Per EMR, pt amb household distances with 4WW with supervision who sometimes needed W/C to follow d/t hx of falls. Pt was able to transfer w/c <>toilet with CGA/ min A with grab bars. Pt used a lift recliner often and did min A to stand up . Pt uses her brace on R for R foot drop for mobility. Activities of Daily Living and IADL's Spouse assists with all dressing tasks and sponge bath . Pt needed assistance to cut up food sometimes. Gigi states Park has been able to transfer for toileting with CGa/min A with grab bars Prior Functional Level (Other details) Spouse cuts up pt food but that she is otherwise indpeendent with feeding without signs of aspiration. Pt has had [facility] before. Social History Household Members spouse Living Arrangements House Number of Floors (Floors) One Floor Number of Stairs To Enter/Railing? no stairs Home Environment High Toilet,Walk in Shower Home Equipment Four Wheel Walker,Manual Wheelchair,Raised Toilet Seat w/Armrests,Hand Held Shower, Lift Recliner,Grab Bars Near Toilet,Grab Bars In Shower Additional Social History Comment pt's Gigi has been a CG for pt for years. He states as long as Park is able to transfer, he is able to help her at home. M2 PT-IP Current Condition Start: 11/13/19 08:50 Freq: NEEDED Status: Active Protocol: Document 11/13/19 12:35 [facility] (Rec: 11/13/19 13:12 [id number]) Physical Therapy Current Condition Current Condition Evaluation Date 11/13/19 Treatment Diagnosis AMS, progressive dementia, confusion, agitation, difficulty in walking Onset Date 11/12/19 Weight Bearing Status Weight Bearing Status Full Weight Bearing M3 PT-IP Subjective Start: 11/13/19 08:50 Freq: NEEDED Status: Active Protocol: Document 11/13/19 12:35 [facility] (Rec: 11/13/19 13:12 [id number]) Subjective Physical Therapy Visit Type Type Initial Evaluation Visit Start Time 11:40 Visit Stop Time 12:25 Total Visit Minutes 45 Notes Gigi attended session. Co-tx with OT Whitley. PT and DC order receieved Number of PHOTOGRAPHER STILL Visits 0 Physical Therapy Visit Comments Patient Comments I feel happy Patient Goals unable to obtain Therapy Pain Assessment Pain Present Pain Present Denied Pain M4 PT-IP Mobility and Gait Start: 11/13/19 08:50 Freq: NEEDED Status: Active Protocol: Document 11/13/19 12:35 HH (Rec: 11/13/19 13:12 [id number]) PT-Bed Mobility Assessment Rolling Level of Assist Moderate Assistance,1 Person Assistance Supine to Sit Supine to Sit Maximum Assistance,1 Person Assistance,Bedrails Scooting Scooting to Edge of Bed Maximum Assistance PT-Transfer Assessment Sit to and From Stand Sit to and from Stand Maximum Assistance,1 Person Assistance Equipment Transfer Assistive Device Gait Belt,Front Wheeled Walker Orthotic/Prosthetic Devices or Brace: No Transfers Transfer Destination Bed,Chair,Bedside Commode Transfer Technique Stand Pivot Transfer Ability Level of Assist Maximum Assistance,2 Person Assistance,Use of Upper Extremities Comments Mobility Comments Pt was in bed sleeping upon PT arrival. at bedside. Woke pt up and pt did not recognize her but stated I am happy. provided all social hx and PLOF. OT and PT decided to have spouse to lead the session to demonstrate his ability to care give for pt and he agreed to it. Pt needed constant tactile and verbal cues to keep her awake and spouse attempted multiple times to GAS REVERSER for supine to sit but unsuccessful. Pt was able to initiate trunk flexion but needed max A from PT to sit up after. Pt was hardly following commands and needed max A to scoot to EOB. Spouse to provide mod GAS REVERSER with FWW to stand pt up but pt tended to lean backwards and needed constant support. Spouse provided arm support on R side and pt needed cues for walker and step management. She was not able to complete a full stand step pivot and decided to sit down on BSC on her L side with poor descend. Pt voided with eyes closed. Pt was in bsc for 5 mins and needed mod A from spouse to stand up again. Spouse assisted in pericare and this PT had to provided min A for support. Pt attempted to transfer to bedside chair after but unable to complete a full turn again and needed OT to position chair behind her to assist descending. Pt cont to be very confused and sleepy . Pt sat in chair comfortably and needed max A x2 to scoot to back of the chair. tray table placed infront of her and notified RN to activate chair alarm. Gait Assessment Comments Gait Comments unable to asssess Stair Climbing Assessment Comments Stair Climbing Comments unable to asssess PT-Balance Assessment Sitting Balance and Reactions Static Sitting Balance Ability Good Dynamic Sitting Balance Ability Fair Standing Balance and Reactions Static Standing Balance Ability Poor Dynamic Standing Balance Ability Poor Device Used FWW M5 PT-IP Objective Assessments Start: 11/13/19 08:50 Freq: NEEDED Status: Active Protocol: Document 11/13/19 12:35 [facility] (Rec: 11/13/19 13:12 [id number]) Orientation Orientation/Cognition Level of Alertness Confusional State Orientation Name Language Function Ability Garbled Speech,Word Finding Difficulties,Hard of Hearing Safety Awareness Decreased Safety Awareness Memory Description Short Term Impaired,[facility] Impaired Comments advanced dementia at baseline. oriented to her name only. unable to recognize her . Has difficulty understanding 1 step command and needed constant tactile and verbal cues. Gross Range of Motion Upper Extremity ROM Assessment Within Functional Limits Lower Extremity ROM Assessment Within Functional Limits Strength Upper Extremity Strength Assessment Within Functional Limits Lower Extremity Strength Assessment Within Functional Limits Muscle Tone Muscle Tone WNL No Muscle Tone Location Bilateral Lower Extremity Type of Tone Hypertonicity Bilateral Upper Extremity Type of Tone Hypertonicity M6 PT-IP Treatment Start: 11/13/19 08:50 Freq: NEEDED Status: Active Protocol: Document 11/13/19 12:35 [facility] (Rec: 11/13/19 13:12 [id number]) Physical Therapy Treatment Education Education Provided Safety M7 PT-IP Assessment and Plan Start: 11/13/19 08:50 Freq: NEEDED Status: Active Protocol: Document 11/13/19 12:35 (Rec: 11/13/19 13:12 [id number]) PT Summary Assessment and Plan Potential Rehabilitation Potential Good Status of Condition at Evaluation Evolving Summary Impairments Pain,ROM,Strength,Balance, Coordination,Sensation,Tone, Cognition,Bed Mobility, Transfers,Gait,Activity Tolerance Assessment Summary Pt is a 79 yo female admitted to [facility] with increased confusion and agitated behavior. Pt has advanced dementia at baseline. Per spouse statement, pt was mostly CGA/ min A for transfer and home mobility with a 4WW for the past couple months. However, upon assessment, pt was very drowsy and oriented to her name only. unable to recognize her . Has difficulty understanding 1 step command and needed constant tactile and verbal cues. Pt needed mod/ max A x 2p for bed mobility, BSC transfer. Spouse also stated I am not able to care give for my at this point. In my professional opinion, discharging to attendant [facility] care facility will be an ideal option d/t her progressive dementia, otherwise, that will be a tremendous burden to her to care give her with safety concerns (fall risks, injury risk for spouse). Goals Bed Mobility Goal Minimal Assistance Transfer Goal Minimal Assistance,Front Wheeled Walker Gait Goal Minimal Assistance,Front Wheel Walker Gait Distance 20 Other Goals BSC transfer chair transfer Days to Meet Goals 5 Frequency of Treatment Frequency Of Treatment Once a Day Treatment Plan Physical Therapy Treatment Plan Bed Mobility Training,Transfer Training,Gait Training, Therapeutic Exercise,Balance Retraining,Post Op Education, Discharge Planning,Hot or Cold Pack,Neuromuscular Re-ed Other Recommendations and Next Treatment mobility as eliza Focus Recommendations To Nursing Amount of Assist Needed 2 Person Assist Discharge Recommendations Other Discharge Recommendations In my professional opinion, discharging to attendant sales care facility will be an ideal option d/t her progressive dementia, otherwise, that will be a tremendous burden to her to care give her with safety concerns (fall risks, injury risk for spouse). Transportation Needs at Discharge Wheelchair/Cabulance
--- NOTE | 2019-11-13 14:01 | PM.PN.1 ---
Subjective Subjective Date Patient Seen: 11/13/19 Interval history: Brief progress note: Patient seen and examined. Patient is in good spirits and pleasantly confused. She is alert oriented to person only. Physical exam unchanged. Discussed workup with the patient's spouse and informed him that no infection or identifying cause of sudden change in behavior (agitation, combativeness, and paranoid) identified other than likely advancing dementia. Also discussed treatment of behaviors with Seroquel. The patient has been mildly somnolent and has generalized weakness possibly due to Seroquel she received last night at 19:30 versus her advancing dementia. The patient's does not believe he can take her home safely. Discontinued Seroquel and will only use in future if absolutely necessary and at small doses. Continue to monitor mentation and reorient frequently. Exam Vital Signs (past 8 hours): - 11/13/19 06:13 11/13/19 06:31 11/13/19 09:51 Temperature 98.0 F 97.8 F Pulse Rate 54 L 55 L Respiratory Rate 19 17 Blood Pressure 123/62 128/60 Pulse Oximetry 94 94 95 11/13/19 13:00 Temperature 97.9 F Pulse Rate 56 L Respiratory Rate 16 Blood Pressure 130/66 Pulse Oximetry 96 Oxygen Delivery Method Room Air Oxygen Flow Rate 0 Objective Labs Result Diagrams: 11/13/19 06:05 11/13/19 06:05 Labs: Laboratory Results - last 24 hr 11/12/19 11/12/19 11/12/19 16:24 16:24 18:07 WBC 8.7 RBC 4.40 Hgb 13.7 Hct 39.5 MCV 89.7 MCH 31.0 MCHC 34.6 RDW 13.9 Plt Count 210 Neut % (Auto) 67.7 Lymph % (Auto) 23.0 L [place] % (Auto) 6.6 Eos % (Auto) 1.7 L Baso % (Auto) 1.0 Neut # (Auto) 5900 Lymph # (Auto) 2000 [place] # (Auto) 600 Eos # (Auto) 200 Baso # (Auto) 100 PT INR APTT Sodium Potassium Chloride Carbon Dioxide BUN Creatinine Estimated GFR BUN/Creatinine Ratio Glucose Hemoglobin A1c Lactate Calcium Total Bilirubin AST ALT Alkaline Phosphatase Total Creatine Kinase CK-MB (CK-2) CK-MB (CK-2) Rel Index Troponin I Total Protein Albumin Globulin Albumin/Globulin Ratio Procalcitonin TSH Prolactin Urine Color Yellow Urine Appearance Clear Urine pH 7.0 Ur Specific [place] 1.015 Urine Protein Negative Urine Glucose (UA) Negative Urine Ketones Negative Urine Occult Blood Negative Urine Nitrate Negative Urine Bilirubin Negative Urine Urobilinogen 0.2 Ur Leukocyte Esterase Trace H Urine RBC None seen Urine WBC 1-5/hpf Ur Squamous Epith Cells 1-5 /hpf Amorphous Sediment 1+ Urine Bacteria Occasional (0-1) D Ur Culture Indicated? Specimen cultured U Opiates 300ng/mL cut Negative Ur Oxycodone Screen Negative Urine Methadone Screen Negative Ur Barbiturates Screen Negative U Tricyclic Antidepress Negative Ur Phencyclidine Scrn Negative Ur Amphetamines Screen Negative U Methamphetamines Scrn Negative Ur MDMA Scrn (Ecstasy) Negative U Benzodiazepines Scrn Negative Urine Cocaine Screen Negative U Marijuana (THC) Screen Negative COVID-19 PCR 11/12/19 11/12/19 11/12/19 18:07 18:07 18:07 WBC RBC Hgb Hct MCV MCH MCHC RDW Plt Count Neut % (Auto) Lymph % (Auto) [place] % (Auto) Eos % (Auto) Baso % (Auto) Neut # (Auto) Lymph # (Auto) [place] # (Auto) Eos # (Auto) Baso # (Auto) PT 11.0 INR 1.0 APTT 33 D Sodium 132 L Potassium 4.6 Chloride 96 L Carbon Dioxide 29 BUN 15 Creatinine 0.62 Estimated GFR > 60.0 BUN/Creatinine Ratio 24.2 H Glucose 107 Hemoglobin A1c Lactate Calcium 9.6 Total Bilirubin 0.7 AST 29 ALT 14 Alkaline Phosphatase 75 Total Creatine Kinase 45 CK-MB (CK-2) TNP CK-MB (CK-2) Rel Index TNP Troponin I < 0.012 Total Protein 7.4 Albumin 4.3 Globulin 3.1 Albumin/Globulin Ratio 1.4 Procalcitonin < 0.05 TSH Prolactin 16.3 Urine Color Urine Appearance Urine pH Ur Specific [place] Urine Protein Urine Glucose (UA) Urine Ketones Urine Occult Blood Urine Nitrate Urine Bilirubin Urine Urobilinogen Ur Leukocyte Esterase Urine RBC Urine WBC Ur Squamous Epith Cells Amorphous Sediment Urine Bacteria Ur Culture Indicated? U Opiates 300ng/mL cut Ur Oxycodone Screen Urine Methadone Screen Ur Barbiturates Screen U Tricyclic Antidepress Ur Phencyclidine Scrn Ur Amphetamines Screen U Methamphetamines Scrn Ur MDMA Scrn (Ecstasy) U Benzodiazepines Scrn Urine Cocaine Screen U Marijuana (THC) Screen COVID-19 PCR 11/12/19 11/12/19 11/12/19 18:07 18:07 22:30 WBC RBC Hgb Hct MCV MCH MCHC RDW Plt Count Neut % (Auto) Lymph % (Auto) [place] % (Auto) Eos % (Auto) Baso % (Auto) Neut # (Auto) Lymph # (Auto) [place] # (Auto) Eos # (Auto) Baso # (Auto) PT INR APTT Sodium Potassium Chloride Carbon Dioxide BUN Creatinine Estimated GFR BUN/Creatinine Ratio Glucose Hemoglobin A1c Lactate 1.4 Calcium Total Bilirubin AST ALT Alkaline Phosphatase Total Creatine Kinase CK-MB (CK-2) CK-MB (CK-2) Rel Index Troponin I Total Protein Albumin Globulin Albumin/Globulin Ratio Procalcitonin TSH 2.94 Prolactin Urine Color Urine Appearance Urine pH Ur Specific [place] Urine Protein Urine Glucose (UA) Urine Ketones Urine Occult Blood Urine Nitrate Urine Bilirubin Urine Urobilinogen Ur Leukocyte Esterase Urine RBC Urine WBC Ur Squamous Epith Cells Amorphous Sediment Urine Bacteria Ur Culture Indicated? U Opiates 300ng/mL cut Ur Oxycodone Screen Urine Methadone Screen Ur Barbiturates Screen U Tricyclic Antidepress Ur Phencyclidine Scrn Ur Amphetamines Screen U Methamphetamines Scrn Ur MDMA Scrn (Ecstasy) U Benzodiazepines Scrn Urine Cocaine Screen U Marijuana (THC) Screen COVID-19 PCR Negative 11/13/19 11/13/19 11/13/19 06:05 06:05 06:05 WBC 9.2 RBC 4.14 Hgb 12.8 Hct 37.7 MCV 91.1 MCH 31.0 MCHC 34.0 RDW 13.8 Plt Count 191 Neut % (Auto) 68.6 Lymph % (Auto) 21.7 L [place] % (Auto) 7.3 Eos % (Auto) 1.6 L Baso % (Auto) 0.8 Neut # (Auto) 6300 Lymph # (Auto) 2000 [place] # (Auto) 700 Eos # (Auto) 100 Baso # (Auto) 100 PT INR APTT Sodium 132 L Potassium 3.8 Chloride 95 L Carbon Dioxide 32 BUN 13 Creatinine 0.71 Estimated GFR > 60.0 BUN/Creatinine Ratio 18.3 Glucose 120 H Hemoglobin A1c 6.2 H Lactate Calcium 9.5 Total Bilirubin AST ALT Alkaline Phosphatase Total Creatine Kinase CK-MB (CK-2) CK-MB (CK-2) Rel Index Troponin I Total Protein Albumin Globulin Albumin/Globulin Ratio Procalcitonin TSH Prolactin Urine Color Urine Appearance Urine pH Ur Specific [place] Urine Protein Urine Glucose (UA) Urine Ketones Urine Occult Blood Urine Nitrate Urine Bilirubin Urine Urobilinogen Ur Leukocyte Esterase Urine RBC Urine WBC Ur Squamous Epith Cells Amorphous Sediment Urine Bacteria Ur Culture Indicated? U Opiates 300ng/mL cut Ur Oxycodone Screen Urine Methadone Screen Ur Barbiturates Screen U Tricyclic Antidepress Ur Phencyclidine Scrn Ur Amphetamines Screen U Methamphetamines Scrn Ur MDMA Scrn (Ecstasy) U Benzodiazepines Scrn Urine Cocaine Screen U Marijuana (THC) Screen COVID-19 PCR
--- NOTE | 2019-11-13 15:31 | PC.NURSE ---
Pt very somnolent today; Oriented to self; FLACC 0/10 pain; LS clear, RA; pt's , Gigi is concerned about taking care of patient at home due to somnolence
--- NOTE | 2019-11-13 16:14 | CM.DANOTE ---
DCP/Assessment: Reviewed chart. MACHINE CLOTH MEASURER referral received. Patient is a 79yr old female admitted to .. with unmanageable behavior. Patient has h/o dementia. PCP is Dr. Bales. Primary payor is 1)Medicare 2)[facility]. Spoke with provider this AM, she reports that patient received dose of Seroquel 25mg yesterday to help with behavioral disturbances. MACHINE CLOTH MEASURER attempted to meet with patient today but she is too sleepy. MACHINE CLOTH MEASURER met with spouse/Gigi explained role. Spouse is primary caregiver to patient. He reports that she has never been aggressive to him prior to this episode? Spouse reports at baseline patient is strong as an Oz. Therapy ordered for patient while spouse present patient unable to do much due to drowsiness. Spouse believes that patient's current status is related to the medication that was provided to her. Provider unsure? Therefore, it was decided patient will remain hospitalized this evening with the plan for her to return home tomorrow. Spouse has no interest in long-term memory care placement at the moment. Spouse agreeable to and would like to use [facility] [facility] MACHINE CLOTH MEASURER placed call to [facility] and faxed referral which included order, F2F, and demographic sheet. In addition, at spouse's request placed call to [facility]. Left message requesting that they call spouse to coordinate care giving assistance in the residence ph# [phone]. In addition, attempted to enroll patient in [facility] ph# [phone] had to leave message requesting call back. Will request MACHINE CLOTH MEASURER follow up on above agencies in AM on 11-14-19. Spouse expected her around 10:00AM for caregiver training with therapy. P: Hopefully, patient will be able to return home tomorrow with the above safeguards in place. Spouse aware that memory care facility at some point might be needed. Spouse believes that with the above assistance he will be able to manage. Provider updated. BIBI Husain Discharge Planning/Care Management CM Discharge Assessment Start: 11/13/19 16:03 Freq: Status: Active Protocol: Document 11/13/19 16:03 KJS (Rec: 11/13/19 16:14 KJS [id number]) Discharge Planning Assessment Assigned Box Printing Machine Operator BIBI Husain Contact Information Lobo Baptiste (spouse) goes by Gigi ph# [phone] Advance Directives? Yes: Directive to Physicians Advance Directives on File Yes History Provided By Patient,Family Member,Medical Record Prior Living Arrangements House Household Members spouse Type of transporation used prior to Relies on Others admit Independent with ADL's No: Not currently Is patient alert and oriented? No: progressive dementia Needs Assistance With Bathing,Grooming,Meal Prep, Toileting,Managing Medications ,Home Chores / Shopping Caregiver for Another No DME Already Rented / Owned Bath Bench,Wheelchair,Elevated Toilet Seat,FWW / Walker Comment Spouse is current caregiver goes by Gigi. Patient/Family Preference [facility] Facility,Home with Home Health Barriers to Discharge Yes Comment Patient very drowsy today and requiring too much assistance for spouse to take her home. Provider in agreement to keep patient until tomorrow 11-14-19 . Patient expected to be more alert. Discharge Plan Home with Home Health Transportation Arrangement Facility, or , if she receives home health. Referrals Initiated Home Health,Other Additional Comment Made referral to [facility]. Left vm for Leatha Berman to call spouse in AM to coordinate caregiver hours. Also made referral to [facility] ph# (awaiting call back to enroll patient). If patient plan is SNF: Has PASSR been No completed? Medicare Choice List Provided Yes SNF/HH Preference [facility]. Referral, [facility] and order faxed. Whiteboard Updated in Patient Room with Yes name and ext. # of Box Printing Machine Operator Review Status In Process Next Review Type Continued Stay Review
[2019-11-13] MEDS: SERTRALINE 50 MG TABLET 100 MG PO (20:35)
[2019-11-13] MEDS: ATORVASTATIN 10 MG TABLET PO (20:35)
[2019-11-14] VITALS (8 sets, daily range): BP systolic 125–145; BP diastolic 63–70; PULSE 50–82; RESP 15–18; TEMP 36.2–36.5; O2SAT 94–97
[2019-11-14] MEDS: ENOXAPARIN 40 MG/0.4 ML SYRINGE SUBCUT (08:47)
[2019-11-14] MEDS: LOSARTAN 50 MG TABLET PO (08:47)
[2019-11-14] MEDS: PROPRANOLOL ER 60 MG CAPSULE PO (08:49)
[2019-11-14] MEDS: TOLTERODINE LA 2 MG CAP PO (08:49)
--- NOTE | 2019-11-14 10:39 | PM.DS.1 ---
History of Present Illness History of Present Illness Date Patient Seen: 11/13/19 Chief complaint: DELUSIONAL VIOLENT Narrative: Written by Juliano ROBERTS: Ms. Abbey Baptiste is a 79-year-old female with a history of progressive dementia with memory impairment, hypertension, GERD, chronic constipation, primary insomnia, obstructive sleep apnea with excessive daytime sleepiness who was brought in from home with altered mental status beyond baseline with combative and unmanageable behavior. Patient's is her primary care to give her an is unable to care for in the home setting. The patient has a history of dementia which is progressive 2 day becoming aggressive and paranoia. Patient typically can recognize her but was unable to do so and other times states her is attempting to hold her against her will. Per the patient's there has been no acute change in health with no reports of fevers or chills chest pain or shortness of breath. She has complained of no abdominal pain and has had no nausea vomiting. There has been no change stooling status though he does report she has been urinating more frequently and has a history of frequent UTIs. Upon arrival to the ER the patient is afebrile with a temperature 97.7?, heart rate of 69, blood pressure 192/90, respirations of 20 saturating 99% on room air. CT the head is obtained finding no acute intracranial processes, cerebral volume loss and chronic microvascular ischemic changes. On laboratory analysis she has a normal white count 8.7, hemoglobin of 13.7, hematocrit of 39.5 platelets 210. Her PT is 11.0 with an INR 1.0 and a PTT of 33. Her sodium is slightly low 132 hour for remainder of her electrolytes are within normal limits with a BUN is 15 and creatinine 0.62. Her blood sugar is 107. Liver functions within normal limits, procalcitonin is less than 0.05, lactic acid is 1.5. TSH is 2.94. Total CK is 45 with a negative troponin. Urinalysis shows trace leukocyte esterase with sediment no other WBCs or bacteria and negative nitrates. In the ER temp was made to give the patient Seroquel which the patient was refusing. The patient is unable return to home setting and is admitted to the hospitalist team for acute mental status change. Discharge Providers Provider Date of admission: 11/12/19 21:44 Discharge Date: 11/14/19 Primary care physician: Chin Bales MD Consults: 11/12/19 16:08 Consult to SHOWER ROOM ATTENDANT - Rn Home Health Stat Comment: 11/12/19 22:16 Consult to Occupational Therapy Evaluate & Treat Comment: Physician Instructions: Evaluate and treat Consult to Physical Therapy Evaluate & Treat Comment: Physician Instructions: Evaluate and Treat 11/12/19 22:17 Consult to Discharge Planning Routine Comment: 11/13/19 04:21 Consult to SHOWER ROOM ATTENDANT - Rn Home Health Routine Comment: placement SHOWER ROOM ATTENDANT Consult: Behavioral Health Assess 11/13/19 15:39 Consult to Home Health Routine Comment: DX: memory impairment Reason For Exam: Home Health for RN/PT/OT/SALES ASSOCIATE CASHIER/SHOWER ROOM ATTENDANT Discharge provider: Quiana Kong DO Summary Hospital Course Discharge Diagnosis: 1.?Advancing dementia with behavioral disturbance, present on admission.? Improved. 2. Diabetes mellitus type 2, non-insulin using and diet controlled, chronic,?present on admission.? Stable.?? 3. Hypertension, chronic, present on admission.? Stable. 4. Hyperlipidemia, chronic, present on admission.? Stable. 5. Overactive bladder, chronic, present on admission.? Stable. Hospital Course: Abbey Baptiste is a 79-year-old female patient with a past medical history significant for hypertension, hyperlipidemia, overactive bladder and progressive dementia who was brought to the ED from home by her with an acute alteration in mental status associated with increased confusion, agitation combativeness and paranoia. 1.?Advancing dementia with behavioral disturbance, present on admission.? Improved. -Per the patient's the patient is not at baseline and can typically?recognize him and interact appropriately but is now exhibiting progressive agitation, combativeness, and paranoia x 2 days. -No underlying metabolic or infectious process identified. -CT brain without contrast did not demonstrate any acute intracranial abnormalities. Noted, moderate to severe cerebral?volume loss for age, with resultant ventricular and sulcal prominence and?moderate periventricular and deep white matter chronic small vessel ischemic changes consistent with dementia.? -patient received Seroquel 25 mg in the ED which helped to control behaviors well, however, made patient's significantly somnolent. Discharged home with lower dose of Seroquel 12.5 mg daily as needed for agitation. Discontinued donepezil as this only effective in mild to moderate dementia.?Continue sertraline 100 mg daily at bedtime and melatonin 6 mg daily at bedtime.?? -Continued to frequently and repetitively reorientate. -Continued physical and occupational therapy evaluation and treatment. Discharge home with home health for physical therapy, occupational therapy, nursing and nurse aide, and SHOWER ROOM ATTENDANT. Patient will likely need long-term placement near future if behaviors persist as spouse unlikely to be able to manage this long-term. ? 2. Diabetes mellitus type 2, non-insulin using and diet controlled, chronic,?present on admission.? Stable.?? -Hemoglobin A1c 6.2%.?Due to age and chronic comorbidities including hypertension, hyperlipidemia, and progressive advanced dementia patient is not on any antihyperglycemics. -Continued diet control with carbohydrate consistent/heart healthy diet.? 3. Hypertension, chronic, present on admission.? Stable. -Continued home losartan 50 mg daily and propranolol 60 mg daily. Discontinued patients HCTZ as this medication in the setting of advancing dementia places patient at high risk of dehydration. 4. Hyperlipidemia, chronic, present on admission.? Stable. -Continued home atorvastatin 10 mg daily at bedtime. 5. Overactive bladder, chronic, present on admission.? Stable. -Continued home tolterodine 2 mg daily. Exam Vital Signs (past 8 hours): - 11/14/19 06:00 11/14/19 06:27 11/14/19 08:35 Temperature 97.1 F L Pulse Rate 50 L Respiratory Rate 18 Blood Pressure 134/63 Pulse Oximetry 94 94 96 11/14/19 08:47 11/14/19 08:56 Temperature 97.7 F Pulse Rate 59 L Respiratory Rate 15 Blood Pressure 145/70 H 143/70 H Pulse Oximetry 96 Oxygen Delivery Method Room Air Oxygen Flow Rate 0 Narrative Exam Narrative: General: Elderly female sitting in bedside chair and in no acute distress, well-developed, well-nourished, advanced dementia and oriented to self only but otherwise appropriately interactive. HEENT: Normocephalic, atraumatic. External ears without defect. Pupils equal, round, and reactive to light. Anicteric sclerae, moist conjunctivae, and no lid lag. Oropharynx free of erythema and cobble stoning with moist mucosa. Neck: Supple with full range of motion. No jugular venous distension. No bruits. No lymphadenopathy or thyromegaly. Cardiovascular: Regular rate and rhythm without murmurs, rubs, or gallops appreciated. Pulmonary: Clear to auscultation bilaterally without crackles, wheezes, or rhonchi. Normal respiratory effort with no use of accessory muscles. Abdomen: Soft, bowel sounds present, nontender, nondistended. No hepatosplenomegaly or masses appreciated. Extremities: No clubbing, cyanosis, or edema. Right lower extremity with chronic foot drop in brace. Skin: Normal temperature, turgor, and texture; no rash, ulcers, or subcutaneous nodules appreciated. Neurological: Cranial nerves grossly intact. Psychiatric: Normal mood and affect. Alert and oriented to person only. Advanced dementia with short and long-term memory deficit. Cooperative without aggressive or combative behavior. Objective Labs Result Diagrams: 11/13/19 06:05 11/13/19 06:05 Discharge Plan Discharge Plan Patient Disposition: Home Health Service Discharge comment: She is being discharged home with home health for physical therapy, occupational therapy, nursing and bath aide. She has advancing dementia with agitation. She has been prescribed Seroquel 12.5 mg daily (morning or evening) as needed to give for agitation or confusion. Seroquel may cause sedation and a lower dose is being use in which she received in the ER. She has also been prescribed melatonin at bedtime for more restful sleep. Her hydrochlorothiazide and potassium chloride have been discontinued due to risk of dehydration with progressive dementia. Her donepezil has been discontinued as this no longer provides any benefit with advancing dementia. Discharge orders & Medications Prescriptions: New melatonin 3 mg Tablet 6 mg PO BEDTIME Qty: 60 RF: 0 quetiapine 25 mg tablet 12.5 mg PO DAILY Qty: 15 RF: 0 Continued sertraline 100 mg tablet 100 mg PO BEDTIME RF: 0 omeprazole 20 mg capsule,delayed release(DR/EC) 20 mg PO BID RF: 0 propranolol 60 mg capsule,extended release 24 hr 60 mg PO QAM RF: 0 phenazopyridine 100 mg Tablet 100 mg PO TID PRN (Reason: Bladder Spasms) RF: 0 losartan 50 mg tablet 50 mg PO QAM RF: 0 atorvastatin [Lipitor] 10 MG tablet 10 mg PO BEDTIME RF: 0 tolterodine 2 mg capsule,extended release 24hr 2 mg PO QAM RF: 0 acetaminophen 325 mg Tablet 325 mg PO PRN PRN (Reason: pain) RF: 0 polyethylene glycol 3350 [Miralax] 17 gram Powder In Packet 17 g PO QPM PRN (Reason: Constipation) RF: 0 sennosides-docusate sodium [Senna-S] 8.6-50 mg Tablet 1 tab-cap PO BEDTIME PRN (Reason: Constipation) RF: 0 lutein extract-zeaxanthin ext 15-0.7 mg Capsule 1 cap PO QAM RF: 0 cholecalciferol (vitamin D3) [Vitamin D3] 2,000 unit Tablet 2,000 unit PO QAM RF: 0 Discontinued hydrochlorothiazide 25 MG tablet 12.5 mg PO QAM Qty: 0 RF: 0 donepezil 5 mg tablet 5 mg PO BEDTIME RF: 0 potassium chloride 10 mEq tablet extended release 10 meq PO QAM RF: 0 Follow up/Referrals: Chin Bales MD [Primary Care Provider] - 11/21/19 3:00 pm (appt:11/20 check in @ 3:00 for a appointment w/stephenie lindquist @ [facility] ) Diet/Activity/Treatments Diet: Diet as Tolerated Activity: Activity as tolerated with walker Visit Report/Discharge Packet Instructions: Melatonin (Alternative Therapy), Quetiapine Visit Report Forms: Patient Portal/API, Stroke Signs & Symptoms Discharge Data Primary Care Provider: Chin Bales V Attending Provider: Juliano Hilton Admit Date/Time: 11/12/19 21:44 Discharges patient from system. Discharge Date/Time: 11/14/19 11:14
--- NOTE | 2019-11-14 10:54 | PT.IPTN ---
Physical Therapy Treatment Note M2 PT-IP Current Condition Start: 11/13/19 08:50 Freq: NEEDED Status: Active Protocol: Document 11/13/19 12:35 HH (Rec: 11/13/19 13:12 HH [id number]) Physical Therapy Current Condition Current Condition Evaluation Date 11/13/19 Treatment Diagnosis AMS, progressive dementia, confusion, agitation, difficulty in walking Onset Date 11/12/19 Weight Bearing Status Weight Bearing Status Full Weight Bearing M3 PT-IP Subjective Start: 11/13/19 08:50 Freq: NEEDED Status: Active Protocol: Document 11/14/19 10:19 KS (Rec: 11/14/19 12:26 KS [id number]) Subjective Physical Therapy Visit Type Type Treatment Note Visit Start Time 10:19 Visit Stop Time 10:54 Total Visit Minutes 35 Notes Gigi attended session. Co-tx with OT Whitley. Number of RIB CUTTER Visits 1 M4 PT-IP Mobility and Gait Start: 11/13/19 08:50 Freq: NEEDED Status: Active Protocol: Document 11/14/19 10:19 KS (Rec: 11/14/19 12:26 KS [id number]) PT-Bed Mobility Assessment Supine to Sit Supine to Sit Standby Assistance,1 Person Assistance,Bedrails Sit to Supine Sit to Supine Minimal Assistance,Moderate Assistance,1 Person Assistance Scooting Scooting to Edge of Bed Contact Guard Assistance PT-Transfer Assessment Sit to and From Stand Sit to and from Stand Minimal Assistance,Moderate Assistance,1 Person Assistance ,Use of Upper Extremities Equipment Transfer Assistive Device Gait Belt,Front Wheeled Walker Orthotic/Prosthetic Devices or Brace: No Transfers Transfer Destination Bed,Chair,Toilet Transfer Technique pt ambulated w/ FWW Transfer Ability Level of Assist Moderate Assistance,1 Person Assistance,Use of Upper Extremities Comments Mobility Comments Pt was in chair upon arrival from therapy w/ in room. Co-treat w/ OT. Instructed to assist pt as he normally would at home to assess pt and caregiver safety. Instructed how to apply gait belt and use gait belt to assist pt standing. Pts required cues throughout treatment to direct and assist pt appropriately. Pt CGA for scooting to EOC, Mod A and cues for sit<>stand w/ FWW. Pts pulled up under pts arm rather than using gait belt as instructed. Pt then ambulated to toilet w/ FWW and providing CGA. Pt used grab bars and needed max cues to turn and sit on toilet . After voiding, pts assisted pt in dressing. Pts and pt had poor safety awareness throughout treatment and dressing, requiring cues for pt to sit while donning bra and shirt as well as sitting to get pants around ankles rather than standing on one leg at a time. Pt then ambulated back to bed w/ FWW and CGA by and RIB CUTTER. Pt approaching bed to practice bed mobility, but was confused and sat in chair. Pts provided cues and Mod A for pt to sit<>stand from chair and transfer to bed w/ FWW. Mod A for FWW management and cues provided by this RIB CUTTER. Pt unable to lift LE into bed, pts required cues to assist pt into bed. Min to Mod A for sit <>sup. Pt then sup<>sit and scooted EOB CGA. Pt stated she wants to get back in chair. Pt and attempted 3 times sit<>stand w/ FWW, pt able to stand CGA to Min A, however was confused by pts husbands cues to get into chair and sat back in bed x2. On final sit<>stand, pt appeared frustrated and was CGA for sit<>stand Min A for stand step pivot to chair for cues and FWW management. Pt left in chair w/ all needs in reach and chair alarm on. Gait Assessment Gait Gait Assistance Required: Minimum Assistance,1 Person Assist Distance (Feet) 20 Able to Maintain Weight Bearing Status Yes During Gait Assistive Devices Assistive Device Front Wheeled Walker Orthotic/Prosthetic Devices or Brace: Yes Gait Deviations General Gait Pattern Antalgic,Decreased Stride Length,Decreased Feet Clearance,Flexed Trunk Factors Limiting Gait Function Factors Limiting Gait Function Decreased Activity Tolerance, Decreased Strength,Difficulty Following Directions, Incoordination,Limited Range of Motion,Poor Balance,Poor Safety Awareness Comments Gait Comments Pt ambulated ~20 ft total in room, from chair to bathroom to bed and back to chair w/ FWW and CGA to Min A provided by . Pt was confused throughout treatment and needed frequent verbal and tactile cues and redirection and FWW management. Pts unable to safely use gaitbelt despite instruction. Pt and both have poor safety awareness, making pt very high fall risk. Stair Climbing Assessment Comments Stair Climbing Comments unable to assess PT-Balance Assessment Sitting Balance and Reactions Static Sitting Balance Ability Good Dynamic Sitting Balance Ability Fair Standing Balance and Reactions Static Standing Balance Ability Poor Dynamic Standing Balance Ability Poor Device Used FWW M5 PT-IP Objective Assessments Start: 11/13/19 08:50 Freq: NEEDED Status: Active Protocol: Document 11/13/19 12:35 HH (Rec: 11/13/19 13:12 HH [id number]) Orientation Orientation/Cognition Level of Alertness Confusional State Orientation Name Language Function Ability Garbled Speech,Word Finding Difficulties,Hard of Hearing Safety Awareness Decreased Safety Awareness Memory Description Short Term Impaired,Manager Bank Impaired Comments advanced dementia at baseline. oriented to her name only. unable to recognize her . Has difficulty understanding 1 step command and needed constant tactile and verbal cues. Gross Range of Motion Upper Extremity ROM Assessment Within Functional Limits Lower Extremity ROM Assessment Within Functional Limits Strength Upper Extremity Strength Assessment Within Functional Limits Lower Extremity Strength Assessment Within Functional Limits Muscle Tone Muscle Tone WNL No Muscle Tone Location Bilateral Lower Extremity Type of Tone Hypertonicity Bilateral Upper Extremity Type of Tone Hypertonicity M6 PT-IP Treatment Start: 11/13/19 08:50 Freq: NEEDED Status: Active Protocol: Document 11/14/19 10:19 KS (Rec: 11/14/19 12:26 KS [id number]) Physical Therapy Treatment Education Education Provided Safety Other Treatments Other Treatment Performed Questioned pts on their at home setup and stressed to pts importance of 24/7 assist and preferably pt going to SNF or [facility] helper termite care. Pts insistent that he feels safe to care for pt at home even though he admits pt gets combative and gets out of bed w/o assist and has fallen. M7 PT-IP Assessment and Plan Start: 11/13/19 08:50 Freq: NEEDED Status: Active Protocol: Document 11/14/19 10:19 KS (Rec: 11/14/19 12:26 KS [id number]) PT Summary Assessment and Plan Potential Rehabilitation Potential Good Status of Condition at Evaluation Evolving Summary Impairments Pain,ROM,Strength,Balance, Coordination,Sensation,Tone, Cognition,Bed Mobility, Transfers,Gait,Activity Tolerance Assessment Summary Co-treat w/ OT. Instructed pts to provide assistance to pt during treatment to assess safety at home. Pts needed frequent cues throughout treatment for sequencing, transfers, ambulation, dressing, gait belt use and application, and bed mobility. Pts provided various levels of assist to pt as needed, but was unable to properly use gait belt despite instruction and did not safely guard pt throughout treatment. Pt Mod A for most sit<>stand, CGA on last sit<>stand, Min to Mod for bed mobility, max cues for all. Pts unable to give pt adequate cues, making pt more confused and agitated towards end of treatment. Encouraged pts to seek increase in caregiver at very least, but preferably SNF or fci care for pt because of her confusion, agitation, poor mobility and pt and husbands very poor safety awareness. Pts states he can take care of pt at home and will look into hiring caregiver. Pt is not at baseline, is high fall risk and is not safe to return home w/ providing support at this time. She will require SNF or exterminator helper termite care to improve functional mobility d/ t poor balance, poor safety awarness, increased assist, low tolerance for activity, and inadequate assist at home. Goals Bed Mobility Goal Minimal Assistance Transfer Goal Minimal Assistance,Front Wheeled Walker Gait Goal Minimal Assistance,Front Wheel Walker Gait Distance 20 Other Goals [place] transfer chair transfer Days to Meet Goals 5 Frequency of Treatment Frequency Of Treatment Once a Day Treatment Plan Physical Therapy Treatment Plan Bed Mobility Training,Transfer Training,Gait Training, Therapeutic Exercise,Balance Retraining,Post Op Education, Discharge Planning,Hot or Cold Pack,Neuromuscular Re-ed Other Recommendations and Next Treatment mobility as eliza Focus Recommendations To Nursing Amount of Assist Needed 2 Person Assist Discharge Recommendations Other Discharge Recommendations In my professional opinion, discharging to exterminator helper termite care facility will be an ideal option d/t her progressive dementia, otherwise, that will be a tremendous burden to her to care give her with safety concerns (fall risks, injury risk for spouse). Transportation Needs at Discharge Wheelchair/Cabulance
--- NOTE | 2019-11-14 10:55 | OT.IP.TRT ---
Occupational Therapy Treatment Note M2 OT-IP Current Condition Start: 11/13/19 13:05 Freq: Status: Active Protocol: Document 11/13/19 11:40 [facility] (Rec: 11/13/19 14:39 [facility] [id number]) Occupational Therapy Current Condition Current Condition Evaluation Date 11/13/19 Treatment Diagnosis Altered mental status, decreased mobility Diagnosis Onset Date 11/12/19 M3 OT- IP Subjective and Pain Start: 11/13/19 13:05 Freq: Status: Active Protocol: Document 11/14/19 10:19 [facility] (Rec: 11/14/19 12:07 [facility] [id number]) OT- Subjective Occupational Therapy Visit Type Type Treatment Note Visit Start Time 10:19 Visit Stop Time 11:55 Total Visit Minutes 36 Occupational Therapy Visit Comments Patient Comments Pt's , PANTS BUSHELER , and OT present for caregiver training . Patient/Caregiver Goals To go home. OT Pain Assessment Pain When Pain Assessed At Rest Pain Present Pain Present Denied Pain M4 OT- IP ADL's Start: 11/13/19 13:05 Freq: Status: Active Protocol: Document 11/14/19 10:19 [facility] (Rec: 11/14/19 12:07 [facility] [id number]) OT [id number] Comments OT Self-Feeding Comments NOt at meal time. OT ADL-Grooming Comments OT Grooming Comments Not performed. OT ADL-Dressing General Eval Upper Body Dressing Ability Maximum Assistance Lower Body Dressing Ability Maximum Assistance,Total Assistance Areas Needing Assistance Pull-Over Shirt,Underpants/ Brief,Pants/Shorts,Socks,Shoes ,Orthosis/Prosthesis Comments OT Dressing Comments Pt's having difficulty with orientation of pt's shirt and needing assist to help get her right arm through the sleeve. Pt's forgetting to get the straps of the bra up over her arms and needing cues to pint out his mistake. OT ADL-Toileting General Evaluation Toileting Ability Maximum Assistance Areas Needing Assistance Manage Clothing,Perform Perineal Hygiene Devices Toileting Assistive Devices Commode,Grab Bars Comments OT Toileting Comments Pt heavily relies on the grab bars to stand while assist for pants and hygiene needs. Cued best to have pt sit while trying to take off her socks and put on her brief and pants. OT ADL-Bathing Comments OT Bathing Comments Not performed. M5 OT- IP IADL's Start: 11/13/19 13:05 Freq: Status: Active Protocol: Document 11/13/19 11:40 [facility] (Rec: 11/13/19 14:39 [facility] [id number]) OT-Instrumental Activities of Daily Living Deficits IADL Deficits Identified Deficits Home Safety Awareness Awareness of Need for Assistance at Home Decreased Awareness Ability to Problem Solve Emergency Unable to Problem Solve Situations Medication Management Medication Management Caregiver Administers Money Management Money Management Caregiver Provides Assistance Meal Preparation Meal Preparation Caregiver Provides Assist Paper Stripper Paper Stripper Caregiver Provides Assist Driving Driving Caregiver Provides Assist M6 OT- IP Functional Cognition Start: 11/13/19 13:05 Freq: Status: Active Protocol: Document 11/14/19 10:19 [facility] (Rec: 11/14/19 12:07 [facility] [id number]) Cognitive Factors Limiting Selfcare Function Cognitive Ability Level of Alertness Alert,Confusional State Patient Orientation Name Attention Span Ability Unable to Focus,Unable to Sustain Attention Ability to Follow Commands Able to Follow One Step Commands with Increased Time, Able to Follow One Step Commands with Repetition Memory Description Immediate Impaired,Short Term Impaired,Working Impaired Safety Awareness Underestimates Need for Assistance Cognitive Comments Cognitive Assessment Comments Pt more alert today , but still needing step by step commands to follow during all ADl and functional mobility needs. Pt a bit impulsive and has poor safety awareness. M7 OT- IP Mobility and Balance Start: 11/13/19 13:05 Freq: Status: Active Protocol: Document 11/14/19 10:19 [facility] (Rec: 11/14/19 12:07 [facility] [id number]) OT- Bed Mobility Assessment Supine to Sit Supine to Sit Assist Moderate Assistance,Total Assistance Sit to Supine Sit to Supine Assist Standby Assistance OT-Transfer Assessment Sit to and From Stand Sit to and from Stand Moderate Assistance Transfers Transfer Ability Moderate Assistance,1 Person Assistance Technique Transfer Destination Bed,Chair,Toilet Devices Transfer Assistive Devices Gait Belt,Front Wheeled Walker Comments Mobility Comments Pt's able to assist with MODA x 1 for bed mobility and transfer. PANTS BUSHELER had close SBA and occasional CGA for assist at times as FWW getting too far ahead of the pt and pt and both needing safety cues. OT- Balance Assessment Sitting Balance and Reactions Static Sitting Balance Ability Good Dynamic Sitting Balance Ability Fair Standing Balance and Reactions Static Standing Balance Ability Poor M8 OT- IP Objective Assessments Start: 11/13/19 13:05 Freq: Status: Active Protocol: Document 11/13/19 11:40 [facility] (Rec: 11/13/19 14:39 [facility] [id number]) OT Gross Range of Motion Upper Extremity Range of Motion Assessment Right Impaired OT Strength Comments Strength Comments Not able to formally assess at least 3+/5. M9 OT- IP Assessment and Plan Start: 11/13/19 13:05 Freq: Status: Active Protocol: Document 11/14/19 10:19 [facility] (Rec: 11/14/19 12:07 [facility] [id number]) OT Summary Assessment and Plan Potential Rehabilitation Potential Fair Analytic Complexity at Evaluation Low Summary OT Impairments Balance,Coordination, Functional Cognition, Functional Mobility,Self- Feeding,Grooming,Dressing, Toileting,Bathing,Toilet Transfers,Shower Transfers, Activity Tolerance Progress Towards Goals Slow Progress due to Medical Issues,Slow Progress due to Activity Tolerance,Slow Progress due to Cognition Assessment Summary Pt's present for cargiver training and still having difficulty with gait belt management and still trying to assist pt by the right arm. Educated him to use the gait belt for better control to safely assist pt. Pt's at times getting confused as not knowing how to get her bra on properly and forgetting to put her arms into the straps, needing assist by therapist to get her right arm into the sleeve . OT still recommends that pt goes to skilled rehab or memory care. This OT feels that it is not safe for pt to go home with unless having another person there to assist. Pt's states to have someone there initially to get her into the house. Pt's insistent that he feels safe to care for her . Goals Grooming Goal Standby Assistance Dressing Goal Moderate Assistance Toileting Goal Moderate Assistance Bathing Goal Moderate Assistance Toilet Transfer Goal Moderate Assistance Shower Transfer Goal Moderate Assistance Days to Meet Goals 5 Frequency of Treatment Frequency Of Treatment Once a Day Treatment Plan OT Treatment Plan ADL Training,Functional Cognition Training,Functional Mobility,Patient/Family Education,Discharge Planning Discharge Recommendations OT Discharge Recommendations SNF Rehab,[facility] Transportation Needs at Discharge Private Vehicle
--- NOTE | 2019-11-14 11:11 | PC.NURSE ---
Pt is dressed and ready for discharge home with Spouse-Gigi. Reviewed d/c instructions with Pt's Spouse (Pt oriented to self only) - discussed d/c meds, time of last dose, discontinued meds, stroke education, and follow up. Encouraged Spouse to ensure that Pt drinks plenty of fluid to prevent dehydration. Pt and Spouse deny further questions and Pt was taken out to pov via w/c by DIRECTOR OF STRATEGIC COMMUNICATIONS with Spouse and all belongings.
--- NOTE | 2019-11-14 14:35 | CM.DPNOTE ---
Addendum entered by BIBI Landaverde 11/16/19 16:28: Spoke w/Chaitanya through the [facility] Program through [employer], he explains this program can only accept [employer] as a payor. Potential referrals need to be 60+ (or younger w/disability) w/MH dx and have [place] to qualify. For future use, [employer] has a Home Assistance program P# [phone], this [employer] unable to call at this time to research eligibility criteria and program details. Original Note: DC Note Reviewed chart, therapy team recommending [facility] placement, needing a lot of assist and cueing. According to therapy notes, Patient's spouse states yesterday he cannot take care of patient. According to chart review, this is patient's 5th visit since Feb 2019, visits typically for GLF/weakness/altered mental status. Placed call to Licha at [facility] P# [phone], inquired about female beds at their memory care unit and there is plenty of space for female, private paid rooms starting at approx $7,440 mo. Met w/patient and her Gigi during multidisciplinary rounds this morning, introduced role and suggested another visit before patient's DC today? Spouse agreeable. Spouse remains agreeable to taking patient home today w/ada ABBOTT. Spoke w/OT Whitley and KARIN Robertson this morning after rounds and all in agreement that the safest DCP seemed to be [facility] for patient. Spouse was noted to have short term memory loss in room while patient was working w/therapy team; spouse needed multiple cues on how to safely assist patient physically and showed poor insight into safety measures. Returned to room at approx 1200 and found that patient and spouse had already left. Contacted ada to update that patient DC today, Sheldon at [facility] states patient will have f/u either tomorrow or Monday- resumption of care priority P: DC home w/spouse and ada RN/PT/OT/KELLEY/BIBI Vega
== END 2019-11-14 11:14 | disposition home health service (06) ==
LOC: ED 21:28 → AC 21:45
PROVIDERS: Emergency Medicine; Admitting Provider Nurse Practitioner Adult Health; Emergency Provider Nurse Practitioner Family; Family Provider Internal Medicine; PCP Internal Medicine; Referring Provider Nurse Practitioner Family; Visit Provider Nurse Practitioner Adult Health
DX: F03.91 Unspecified dementia, unspecified severity, with behavioral disturbance (principal); F05 Delirium due to known physiological condition; I10 Essential (primary) hypertension; K21.9 Gastro-esophageal reflux disease without esophagitis; G47.33 Obstructive sleep apnea (adult) (pediatric); G47.00 Insomnia, unspecified; K59.09 Other constipation; E11.9 Type 2 diabetes mellitus without complications; E78.5 Hyperlipidemia, unspecified; Z11.59 Encounter for screening for other viral diseases
CPT/HCPCS: 36415; 70450; 80048; 80053; 80305; 81001; 82550; 82962; 83036; 83605; 84145; 84146; 84443; 84484; 85025; 85610; 85730; 87086; 87635; 96372; 97116; 97162; 97165; 97530; 97535; 99283; 99284; G0378; J1650

== ENCOUNTER 2019-11-25 13:57 | Observation (INO) | payer MEDICARE, SELFPAY ==
[2019-11-25] VITALS (8 sets, daily range): BP systolic 153–171; BP diastolic 63–91; PULSE 57–62; RESP 18; TEMP 36.2–36.7; O2SAT 95–98; BMI 30.9
--- NOTE | 2019-11-25 14:22 | ED.WEAKNESS ---
HPI - Weakness General Chief complaint: Weakness Stated complaint: Increased weakness Time Seen by Provider: 11/25/19 13:58 Source: EMS and old records reviewed History of Present Illness HPI Narrative: The patient is a 79-year-old female with history of Alzheimer's dementia, hypertension, recent UTI and admission to the hospital discharge on 11/14/2019 presenting today with increased weakness. She is overall in extremely poor historian but can follow commands and does not have any real complaints. He does appear to be fairly weak. She currently denies any chest pain. She has a cough but she says she has had it for years. She has no abdominal pain. MD Complaint: generalized weakness Related Data Home Medications Medication Instructions Recorded Confirmed acetaminophen 325 mg PO PRN PRN 03/05/19 11/25/19 atorvastatin [Lipitor] 10 mg PO BEDTIME 03/05/19 11/25/19 cholecalciferol (vitamin D3) 2,000 unit PO QAM 03/05/19 11/25/19 [Vitamin D3] losartan 50 mg PO QAM 03/05/19 11/25/19 polyethylene glycol 3350 [Miralax] 17 g PO QPM PRN 03/05/19 11/25/19 sennosides-docusate sodium 1 tab-cap PO BEDTIME PRN 03/05/19 11/25/19 [Senna-S] tolterodine 2 mg PO QAM 03/05/19 11/25/19 omeprazole 20 mg PO BID 04/09/19 11/25/19 sertraline 100 mg PO BEDTIME 04/09/19 11/25/19 phenazopyridine 100 mg PO PRN PRN 07/05/19 11/25/19 propranolol 60 mg PO QAM 07/05/19 11/25/19 lutein-zeaxanthin 1 cap PO DAILY 11/25/19 11/25/19 melatonin 6 mg PO BEDTIME 11/25/19 11/25/19 Previous Rx's Medication Instructions Recorded quetiapine 12.5 mg PO DAILY #15 tab 11/14/19 Allergies Allergy/AdvReac Type Severity Reaction Status Date / Time olmesartan [From Benicar] Allergy Verified 07/05/19 12:25 Penicillins Allergy Verified 07/05/19 12:23 Sulfa (Sulfonamide Allergy Verified 07/05/19 12:23 Antibiotics) Review of Systems Review of Systems Narrative: All limited due to patient Constitutional Constitutional: Denies body ache(s), Reports fatigue, Denies fever(s), Reports lethargy and Reports malaise Cardiovascular Cardiovascular: Denies chest pain and Denies dyspnea Respiratory Respiratory: Denies chest congestion, Reports cough (Chronic) and Denies dyspnea Gastrointestinal Gastrointestinal: Denies abdominal pain and Reports nausea Genitourinary Genitourinary: Reports as per HPI Genitourinary: Reports as per HPI Musculoskeletal Musculoskeletal: Denies back pain Integumentary/Breasts Skin/Breast: Denies pruritus, Denies erythema, Denies rash and Denies wounds Endocrine Endocrine: Reports fatigue Patient History Medical History Chronic constipation (Chronic) Depression (Chronic) Excessive daytime sleepiness (Chronic) GERD (gastroesophageal reflux disease) (Acute) HTN (hypertension) (Chronic) Long-term memory impairment (Chronic) Neuropathy (Chronic) Obstructive sleep apnea of adult (Chronic ~1999) Primary insomnia (Chronic) Snoring (Chronic) Surgical History Status post laminectomy (Acute) Status post surgery (11/06/15) Status post tubal ligation Family History Mother Bleeding ulcer CVA (cerebral vascular accident) Father Alcoholism Schizophrenia Social History marital status: details: to Gigi household members: spouse caregiver/support person: Yes seatbelt use: always water heater temp set < 120 deg: Yes working smoke detector in home: Yes carbon monox detector in home: Yes Smoking Status: Never smoker alcohol intake: current substance use type: does not use Smoking Status: Never smoker alcohol intake frequency: holidays/special occasions only Substance Use Type: does not use Exam Initial Vital Signs Initial Vital Signs: Vital Signs Temperature 97.2 F L 11/25/19 14:00 Pulse Rate 62 11/25/19 14:00 Respiratory Rate 18 11/25/19 14:00 Blood Pressure 167/78 H 11/25/19 14:00 Pulse Oximetry 97 11/25/19 14:00 GENERAL: Chronically-ill generalized weak female HEENT: Head atraumatic,EOMI, pupils reactive, face symmetric, moist mucous membranes CARDIOVASCULAR: Regular rate and rhythm without murmurs, rubs or gallops. RESPIRATORY: Breath sounds equal bilaterally, no wheezes rales or rhonchi. ABDOMEN: Soft, nontender. Normoactive bowel sounds all 4 quadrants. No guarding or rebound. EXTREMITIES: Normal range of motion, no clubbing or edema. Neurovascularly intact NEUROLOGICAL: A moves all extremities been generally weak SKIN: Warm, dry, no laceration, no petechiae, no rashes or lesions. Course Orders Ordered: ED Orders 11/25/19 14:06 EKG-12 Lead Stat 11/25/19 14:10 Complete Blood Count AUTO DIFF Stat Comprehensive Metabolic Panel Stat Lipase Stat Partial Thromboplastin Time Stat Prothrombin Time INR Stat Troponin & CK Cardiac Panel Stat 11/25/19 14:30 Blood Culture Stat 11/25/19 14:37 Lactate (Lactic Acid) Stat Procalcitonin Stat 11/25/19 14:45 COVID19 -ED/INPAT/OR/L&D Stat 11/25/19 15:10 Urine Microscopic Stat 11/25/19 15:13 XR chest 1V Stat Acetaminophen (Tylenol) 650 mg PO Q6HR PRN PRN Reason: Fever/Mild Pain (1-3) Atorvastatin Calcium (Lipitor) 10 mg PO BEDTIME TRINA Bisacodyl (Dulcolax) 10 mg [place] DAILY PRN PRN Reason: Constipation Docusate Sodium (Colace) 100 mg PO BID TRINA Enoxaparin Sodium (Lovenox) 40 mg SUBCUT DAILY TRINA Losartan Potassium (Cozaar) 50 mg PO DAILY [facility]INA Magnesium Hydroxide (Milk Of Magnesia) 30 ml PO DAILY PRN PRN Reason: Constipation Melatonin (Melatonin) 6 mg PO BEDTIME TRINA Morphine Sulfate (Morphine) 2 mg IV Q4HR PRN PRN Reason: Pain, Moderate (4-6) Naloxone HCl (Narcan) 0.2 mg IV Q2MIN PRN PRN Reason: Opiate Reversal Ondansetron HCl (Zofran) 4 mg IV Q8HR PRN PRN Reason: Nausea And Vomiting Pantoprazole Sodium (Protonix) 20 mg PO BID [facility] Phenazopyridine HCl (Pyridium) 100 mg PO TID PRN PRN Reason: BLADDER SPASM Polyethylene Glycol (Miralax) 17 gm PO QPM PRN PRN Reason: Constipation Propranolol HCl (Inderal La) 60 mg PO DAILY TRINA Sennosides (Senna) 17.2 mg PO BEDTIME TRINA Sertraline HCl (Zoloft) 100 mg PO BEDTIME TRINA Tolterodine Tartrate (Detrol La) 2 mg PO DAILY TRINA Vitamin D (Vitamin D3) 2,000 unit PO DAILY TRINA Vital Signs Vital signs: Vital Signs - 8 hr 11/25/19 14:00 11/25/19 14:30 11/25/19 15:10 Temperature 97.2 F L Pulse Rate 58 L 60 62 Respiratory Rate 18 Blood Pressure 167/78 H 171/78 H Pulse Oximetry 97 98 97 11/25/19 15:11 11/25/19 15:30 Temperature Pulse Rate 61 60 Respiratory Rate Blood Pressure 156/72 H 170/81 H Pulse Oximetry 97 96 MDM - Weakness Lab Data Attestation: I reviewed the patient's lab results. Result diagrams: 11/25/19 14:10 11/25/19 14:10 Labs: Lab Results 11/25/19 11/25/19 11/25/19 Range/Units 14:10 14:10 14:10 WBC 6.1 (4.5-11.0) X10^3/uL RBC 4.27 (4.0-5.2) X10^6/uL Hgb 13.1 (12.0-16.0) g/dL Hct 39.0 (36-46) % MCV 91.2 (80-100) fL MCH 30.7 (26-34) PG MCHC 33.7 (30-36) % RDW 14.1 (11.6-14.8) % Plt Count 205 (150-400) X10^3/uL Neut % (Auto) 57.7 (50-75) % Lymph % (Auto) 32.5 (25-40) % [place] % (Auto) 6.8 (3-14) % Eos % (Auto) 2.1 (2-4) % Baso % (Auto) 0.9 (0-2) % Neut # (Auto) 3500 (5911-0290) /uL Lymph # (Auto) 2000 (4166-5581) /uL [place] # (Auto) 400 (0-900) /uL Eos # (Auto) 100 (0-450) /uL Baso # (Auto) 100 (0-100) /uL PT 11.1 (10.1-12.7) SECONDS INR 1.0 (0.9-1.3) APTT 31 D (26.4-36.2) SECONDS Sodium 135 L (137-145) mmol/L Potassium 4.1 (3.4-5.1) mmol/L Chloride 99 (98-107) mmol/L Carbon Dioxide 29 (22-32) mmol/L BUN 15 (7-17) mg/dL Creatinine 0.73 (0.52-1.04) mg/dL Estimated GFR > 60.0 (>60) mL/min BUN/Creatinine Ratio 20.5 (6-22) Glucose 112 H (80-110) mg/dL Lactate (0.7-2.1) mmol/L Calcium 9.1 (8.4-10.2) mg/dL Total Bilirubin 0.4 (0.2-1.3) mg/dL AST 20 (14-36) IU/L ALT 13 (<35) IU/L Alkaline Phosphatase 77 (38-126) U/L Total Creatine Kinase 23 L (30-135) U/L CK-MB (CK-2) TNP CK-MB (CK-2) Rel Index TNP Troponin I < 0.012 (0.01-0.034) ng/mL Total Protein 6.7 (6.3-8.2) g/dL Albumin 4.1 (3.5-5.0) g/dL Globulin 2.6 (1.7-4.1) g/dL Albumin/Globulin Ratio 1.6 (1.0-2.8) Lipase 77 (23-300) U/L Procalcitonin (<0.5) ng/mL Urine RBC (0-5/HPF) Urine WBC (0-5/HPF) Ur Squamous Epith Cells (0-5/HPF) Urine Bacteria (None) Ur Culture Indicated? COVID-19 PCR (Negative) 11/25/19 11/25/19 11/25/19 Range/Units 14:37 14:37 14:45 WBC (4.5-11.0) X10^3/uL RBC (4.0-5.2) X10^6/uL Hgb (12.0-16.0) g/dL Hct (36-46) % MCV (80-100) fL MCH (26-34) PG MCHC (30-36) % RDW (11.6-14.8) % Plt Count (150-400) X10^3/uL Neut % (Auto) (50-75) % Lymph % (Auto) (25-40) % [place] % (Auto) (3-14) % Eos % (Auto) (2-4) % Baso % (Auto) (0-2) % Neut # (Auto) (9261-0213) /uL Lymph # (Auto) (8906-6651) /uL [place] # (Auto) (0-900) /uL Eos # (Auto) (0-450) /uL Baso # (Auto) (0-100) /uL PT (10.1-12.7) SECONDS INR (0.9-1.3) APTT (26.4-36.2) SECONDS Sodium (137-145) mmol/L Potassium (3.4-5.1) mmol/L Chloride (98-107) mmol/L Carbon Dioxide (22-32) mmol/L BUN (7-17) mg/dL Creatinine (0.52-1.04) mg/dL Estimated GFR (>60) mL/min BUN/Creatinine Ratio (6-22) Glucose (80-110) mg/dL Lactate 1.4 (0.7-2.1) mmol/L Calcium (8.4-10.2) mg/dL Total Bilirubin (0.2-1.3) mg/dL AST (14-36) IU/L ALT (<35) IU/L Alkaline Phosphatase (38-126) U/L Total Creatine Kinase (30-135) U/L CK-MB (CK-2) CK-MB (CK-2) Rel Index Troponin I (0.01-0.034) ng/mL Total Protein (6.3-8.2) g/dL Albumin (3.5-5.0) g/dL Globulin (1.7-4.1) g/dL Albumin/Globulin Ratio (1.0-2.8) Lipase (23-300) U/L Procalcitonin < 0.05 (<0.5) ng/mL Urine RBC (0-5/HPF) Urine WBC (0-5/HPF) Ur Squamous Epith Cells (0-5/HPF) Urine Bacteria (None) Ur Culture Indicated? COVID-19 PCR Negative (Negative) 11/25/19 Range/Units 15:10 WBC (4.5-11.0) X10^3/uL RBC (4.0-5.2) X10^6/uL Hgb (12.0-16.0) g/dL Hct (36-46) % MCV (80-100) fL MCH (26-34) PG MCHC (30-36) % RDW (11.6-14.8) % Plt Count (150-400) X10^3/uL Neut % (Auto) (50-75) % Lymph % (Auto) (25-40) % [place] % (Auto) (3-14) % Eos % (Auto) (2-4) % Baso % (Auto) (0-2) % Neut # (Auto) (8873-6643) /uL Lymph # (Auto) (3782-4086) /uL [place] # (Auto) (0-900) /uL Eos # (Auto) (0-450) /uL Baso # (Auto) (0-100) /uL PT (10.1-12.7) SECONDS INR (0.9-1.3) APTT (26.4-36.2) SECONDS Sodium (137-145) mmol/L Potassium (3.4-5.1) mmol/L Chloride (98-107) mmol/L Carbon Dioxide (22-32) mmol/L BUN (7-17) mg/dL Creatinine (0.52-1.04) mg/dL Estimated GFR (>60) mL/min BUN/Creatinine Ratio (6-22) Glucose (80-110) mg/dL Lactate (0.7-2.1) mmol/L Calcium (8.4-10.2) mg/dL Total Bilirubin (0.2-1.3) mg/dL AST (14-36) IU/L ALT (<35) IU/L Alkaline Phosphatase (38-126) U/L Total Creatine Kinase (30-135) U/L CK-MB (CK-2) CK-MB (CK-2) Rel Index Troponin I (0.01-0.034) ng/mL Total Protein (6.3-8.2) g/dL Albumin (3.5-5.0) g/dL Globulin (1.7-4.1) g/dL Albumin/Globulin Ratio (1.0-2.8) Lipase (23-300) U/L Procalcitonin (<0.5) ng/mL Urine RBC 1-5/hpf (0-5/HPF) Urine WBC 5-10/hpf H (0-5/HPF) Ur Squamous Epith Cells 5-10 /hpf H (0-5/HPF) Urine Bacteria Moderate (10-30) H (None) Ur Culture Indicated? Cult not indicated COVID-19 PCR (Negative) Urine Dip Bedside Urine Glucose Negative Bedside Urine Bilirubin - Negative Bedside Urine Ketone - Negative Urine Specific [place] 1.020 Bedside Urine Occult Blood - Negative Bedside Urine pH 6.0 Bedside Urine Protein - Negative Bedside Urine Urobilinogen - Negative Bedside Urine Nitrite - Negative Bedside Urine Leukocytes ++ 125 Esterase ECG Data Attestation: I personally reviewed and interpreted this ECG as follows: Prior ECG tracings: available for review Interpretation: Normal sinus rhythm 63 p.r. interval 184 QRS [address] changes MDM Narrative Medical decision making narrative: No obvious source of infection however patient is profoundly weak, unclear what her baseline is. She lives at home with her , may require placement. Dr. hein accepts for observation Discharge Plan Departure Patient Disposition: Admitted as Observation Clinical Impression: Weakness Discharge Date/Time: 11/25/19 16:28 Admit Date/Time: 11/25/19 15:54 Admit Provider: Homa Hein
[2019-11-25 14:25] LABS: Add Manual Diff / Slide Review NO; Basophils Absolute Auto 100 /uL (0-100); Basophils Percent Auto 0.9 % (0-2); Eosinophils Absolute Auto 100 /uL (0-450); Eosinophils Percent Auto 2.1 % (2-4); Hemoglobin 13.1 g/dL (12.0-16.0); Lymphocytes Absolute Auto 2000 /uL (1100-4500); Lymphocytes Percent Auto 32.5 % (25-40); Mean Corpuscular HGB Conc 33.7 % (30-36); Mean Corpuscular Hemoglobin 30.7 PG (26-34); Mean Corpuscular Volume 91.2 fL (80-100); Monocytes Absolute Auto 400 /uL (0-900); Monocytes Percent Auto 6.8 % (3-14); Neutrophils Absolute Auto 3500 /uL (1500-7000); Neutrophils Percent Auto 57.7 % (50-75); Platelet Count 205 X10^3/uL (150-400); Red Blood Cell Count 4.27 X10^6/uL (4.0-5.2); Red Cell Distribution Width 14.1 % (11.6-14.8); White Blood Cell Count 6.1 X10^3/uL (4.5-11.0)
[2019-11-25 14:33] LABS: Prothrombin Time 11.1 SECONDS (10.1-12.7)
[2019-11-25 14:35] LABS: PTT Partial Thromboplastin Tim 31 SECONDS (26.4-36.2)
[2019-11-25 14:37] LABS: Alanine Aminotransferase 13 IU/L (<35); Albumin 4.1 g/dL (3.5-5.0); Albumin Globulin Ratio 1.6 (1.0-2.8); Alkaline Phosphatase 77 U/L (38-126); Aspartate Aminotransferase 20 IU/L (14-36); BUN Creatinine Ratio 20.5 (6-22); Bilirubin Total 0.4 mg/dL (0.2-1.3); Blood Urea Nitrogen 15 mg/dL (7-17); Calcium 9.1 mg/dL (8.4-10.2); Carbon Dioxide 29 mmol/L (22-32); Chloride 99 mmol/L (98-107); Creatine Kinase 23 U/L (30-135); Estimated Glomerular Filt Rate > 60.0 mL/min (>60); Globulin 2.6 g/dL (1.7-4.1); Glucose 112 mg/dL (80-110); HEMOLYSIS 15 (0-50); Lipase 77 U/L (23-300); Potassium 4.1 mmol/L (3.4-5.1); Sodium 135 mmol/L (137-145); Total Protein 6.7 g/dL (6.3-8.2)
[2019-11-25 14:44] LABS: Lactate (Lactic Acid) 1.4 mmol/L (0.7-2.1)
[2019-11-25 14:49] LABS: Troponin I < 0.012 ng/mL (0.01-0.034)
[2019-11-25 15:03] LABS: Procalcitonin < 0.05 ng/mL (<0.5)
--- NOTE | 2019-11-25 15:13 | DI.RAD.S_ITS ---
PROCEDURE: XR CHEST 1V INDICATIONS: weakness TECHNIQUE: One view of the chest was acquired. COMPARISON: [facility], CR, CHEST 1 VIEW, 04/27/2015, 6:40. [facility], CR, XR RIBS RT MIN 3V W CXR 1V, 03/05/2019, 16:10. [facility], CR, XR CHEST 1V, 04/01/2019, 14:28. [facility], CR, XR CHEST 1V, 07/05/2019, 9:49. FINDINGS: Surgical changes and devices: None. Lungs and pleura: Lungs are clear. No pleural effusions or pneumothorax. Mediastinum: The cardiac contours are within normal limits. The aorta demonstrates calcification and tortuosity. Bones and chest wall: Age-appropriate bony degenerative changes are seen. Mild levoconvex scoliotic curvature is noted. No suspicious bony lesions. Overlying soft tissues appear unremarkable. IMPRESSION: Clear lungs. Age-appropriate senescent changes are seen. Dictated by: Randal Rob M.D. on 11/25/2019 at 14:33 Approved by: Randal Rob M.D. on 11/25/2019 at 14:34
[2019-11-25 15:23] LABS: COVID19 -Nasal RAPID Negative (Negative)
[2019-11-25 15:25] LABS: Bacteria Urine Moderate (10-30); Culture Indicated Urine Cult Not Indicated; RBC Urine 1-5/HPF (0-5/HPF); Squamous Epithelial Cell Urine 5-10 /HPF (0-5/HPF); WBC Urine 5-10/HPF (0-5/HPF)
--- NOTE | 2019-11-25 18:05 | PM.HP.1 ---
History of Present Illness History of Present Illness Date Patient Seen: 11/25/19 Chief complaint: Increased weakness Narrative: Patient is a 79-year-old female with a history of dementia, constipation, insomnia, obstructive sleep apnea, who was discharged from the hospital 10 days ago after treatment for progressive dementia, hypertension, overactive bladder, hyperlipidemia. The patient is unable to provide any history. According to the patient's since going home they have had home health. The home health providers have had difficulty working with her as the patient often falls asleep. In addition today they were out to see and were unable to stand the patient up. As they were unable to ambulate or move she was brought into the hospital for evaluation. The patient is confused and unable to provide any history. According to her there have been concerns that she has Parkinson's disease. He said she was evaluated but not definitively diagnosed with it. In addition the patient has significant delusions, he also reports visual hallucinations. The patient has insomnia, and also frequently falls asleep during the daytime. Fortunately she is had no significant falls lately. Her has tried to be careful such that she does not have a fall. Patient was discharged from the hospital 10 days ago with home health. It appears that because of her progressive cognitive decline it is difficult for her to manage her at home. Patient is admitted to the hospital for further evaluation. Patient History Medical History Chronic constipation (Chronic) Depression (Chronic) Excessive daytime sleepiness (Chronic) GERD (gastroesophageal reflux disease) (Acute) HTN (hypertension) (Chronic) Long-term memory impairment (Chronic) Neuropathy (Chronic) Obstructive sleep apnea of adult (Chronic ~2000) Primary insomnia (Chronic) Snoring (Chronic) Surgical History Status post laminectomy (Acute) Status post surgery (11/06/15) Status post tubal ligation Family & Social History Family History Mother Bleeding ulcer CVA (cerebral vascular accident) Father Alcoholism Schizophrenia Social History: household members spouse caregiver/support person Yes Safety & Behavioral: Feels Safe in Current Yes Environment Been Physically Hurt or No Threatened By a Person Tobacco & Substance use: Smoking Status Never smoker alcohol intake current alcohol intake frequency holiday/special occasion Substance Use Type does not use Meds Home Medications and Allergies Home Medications Medication Instructions Recorded Confirmed Type acetaminophen 325 mg PO PRN PRN 03/05/19 11/25/19 History atorvastatin [Lipitor] 10 mg PO BEDTIME 03/05/19 11/25/19 History cholecalciferol (vitamin D3) 2,000 unit PO QAM 03/05/19 11/25/19 History [Vitamin D3] losartan 50 mg PO QAM 03/05/19 11/25/19 History polyethylene glycol 3350 [Miralax] 17 g PO QPM PRN 03/05/19 11/25/19 History sennosides-docusate sodium 1 tab-cap PO BEDTIME PRN 03/05/19 11/25/19 History [Senna-S] tolterodine 2 mg PO QAM 03/05/19 11/25/19 History omeprazole 20 mg PO BID 04/09/19 11/25/19 History sertraline 100 mg PO BEDTIME 04/09/19 11/25/19 History phenazopyridine 100 mg PO PRN PRN 07/05/19 11/25/19 History propranolol 60 mg PO QAM 07/05/19 11/25/19 History quetiapine 12.5 mg PO DAILY #15 tab 11/14/19 11/25/19 Rx lutein-zeaxanthin 1 cap PO DAILY 11/25/19 11/25/19 History melatonin 6 mg PO BEDTIME 11/25/19 11/25/19 History Allergies Allergy/AdvReac Type Severity Reaction Status Date / Time olmesartan [From Benicar] Allergy Verified 07/05/19 12:25 Penicillins Allergy Verified 07/05/19 12:23 Sulfa (Sulfonamide Allergy Verified 07/05/19 12:23 Antibiotics) Review of Systems Review of Systems ROS: Yes unobtainable due to mental status Exam Vital Signs (past 8 hours): - 11/25/19 14:00 11/25/19 14:30 11/25/19 15:10 Temperature 97.2 F L Pulse Rate 58 L 60 62 Respiratory Rate 18 Blood Pressure 167/78 H 171/78 H Pulse Oximetry 97 98 97 11/25/19 15:11 11/25/19 15:30 11/25/19 16:00 Temperature Pulse Rate 61 60 60 Respiratory Rate Blood Pressure 156/72 H 170/81 H 160/73 H Pulse Oximetry 97 96 95 Oxygen Delivery Method Room Air Narrative Exam Narrative: Elderly female lying in bed confused but in no obvious distress HEENT: Normocephalic atraumatic, extraocular muscles are intact, oropharynx is clear she has moist mucous membranes neck is supple without adenopathy Lungs: Clear to auscultation Cardiac exam: Regular rate and rhythm normal S1-S2 Abdomen: Soft nontender nondistended, no hepatosplenomegaly Extremities: No clubbing cyanosis or edema, patient has a prosthetic, and appears to have right footdrop Neuro exam: The patient is confused, she knows she is in and according but does not know why she is in the hospital, she does not know where she is, she does not know what year it is, she does not know who the president is. 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 Objective Labs Result Diagrams: 11/25/19 14:10 11/25/19 14:10 Labs: Laboratory Results - last 24 hr 11/25/19 11/25/19 11/25/19 14:10 14:10 14:10 WBC 6.1 RBC 4.27 Hgb 13.1 Hct 39.0 MCV 91.2 MCH 30.7 MCHC 33.7 RDW 14.1 Plt Count 205 Neut % (Auto) 57.7 Lymph % (Auto) 32.5 [place] % (Auto) 6.8 Eos % (Auto) 2.1 Baso % (Auto) 0.9 Neut # (Auto) 3500 Lymph # (Auto) 2000 [place] # (Auto) 400 Eos # (Auto) 100 Baso # (Auto) 100 PT 11.1 INR 1.0 APTT 31 D Sodium 135 L Potassium 4.1 Chloride 99 Carbon Dioxide 29 BUN 15 Creatinine 0.73 Estimated GFR > 60.0 BUN/Creatinine Ratio 20.5 Glucose 112 H Lactate Calcium 9.1 Total Bilirubin 0.4 AST 20 ALT 13 Alkaline Phosphatase 77 Total Creatine Kinase 23 L CK-MB (CK-2) TNP CK-MB (CK-2) Rel Index TNP Troponin I < 0.012 Total Protein 6.7 Albumin 4.1 Globulin 2.6 Albumin/Globulin Ratio 1.6 Lipase 77 Procalcitonin Urine RBC Urine WBC Ur Squamous Epith Cells Urine Bacteria Ur Culture Indicated? COVID-19 PCR 11/25/19 11/25/19 11/25/19 14:37 14:37 14:45 WBC RBC Hgb Hct MCV MCH MCHC RDW Plt Count Neut % (Auto) Lymph % (Auto) [place] % (Auto) Eos % (Auto) Baso % (Auto) Neut # (Auto) Lymph # (Auto) [place] # (Auto) Eos # (Auto) Baso # (Auto) PT INR APTT Sodium Potassium Chloride Carbon Dioxide BUN Creatinine Estimated GFR BUN/Creatinine Ratio Glucose Lactate 1.4 Calcium Total Bilirubin AST ALT Alkaline Phosphatase Total Creatine Kinase CK-MB (CK-2) CK-MB (CK-2) Rel Index Troponin I Total Protein Albumin Globulin Albumin/Globulin Ratio Lipase Procalcitonin < 0.05 Urine RBC Urine WBC Ur Squamous Epith Cells Urine Bacteria Ur Culture Indicated? COVID-19 PCR Negative 11/25/19 15:10 WBC RBC Hgb Hct MCV MCH MCHC RDW Plt Count Neut % (Auto) Lymph % (Auto) [place] % (Auto) Eos % (Auto) Baso % (Auto) Neut # (Auto) Lymph # (Auto) [place] # (Auto) Eos # (Auto) Baso # (Auto) PT INR APTT Sodium Potassium Chloride Carbon Dioxide BUN Creatinine Estimated GFR BUN/Creatinine Ratio Glucose Lactate Calcium Total Bilirubin AST ALT Alkaline Phosphatase Total Creatine Kinase CK-MB (CK-2) CK-MB (CK-2) Rel Index Troponin I Total Protein Albumin Globulin Albumin/Globulin Ratio Lipase Procalcitonin Urine RBC 1-5/hpf Urine WBC 5-10/hpf H Ur Squamous Epith Cells 5-10 /hpf H Urine Bacteria Moderate (10-30) H Ur Culture Indicated? Cult not indicated COVID-19 PCR Assessment & Plan Assessment & Plan narrative: 1. 79-year-old female with progressive dementia admitted to the hospital for inability to ambulate, weak, progressive confusion -patient with hypersomnia, visual hallucinations, dementia, with an intention tremor -this is suggestive of Lewy body dementia -patient may have underlying Parkinson's disease so which has not been diagnosed as well -suspect inability to 1 may be related to either dementia or Parkinson's disease -patient is unable to be managed at home and likely would benefit from dementia care unit -will obtain PT OT consultation -will arrange for social work consult as she likely will need placement -will continue melatonin -will avoid antipsychotics 2. Hypertension -continue losartan 3. Hyperlipidemia -continue atorvastatin 4. Chronic constipation -will continue bowel rest 5. Bladder spasm -continue her usual home medication 6. Depression -continue sertaline -discontinue seroquel 7. Intention tremor -suspect parkinson's disease -continue propanolol for now Patient's is her surrogate, I spoke with him this evening regarding her code status. Patient has a Polst which indicates no heroic measures, comfort care, but further treat Patient's will bring the post form and tomorrow She will be made DNR Patient will be placed Lovenox for DVT prophylax
[2019-11-25] MEDS: MELATONIN 3 MG TABLET 6 MG PO (20:32)
[2019-11-25] MEDS: PANTOPRAZOLE 20 MG TABLET PO (20:32)
[2019-11-25] MEDS: SERTRALINE 50 MG TABLET 100 MG PO (20:32)
[2019-11-25] MEDS: DOCUSATE 100 MG CAPSULE PO (20:32)
[2019-11-25] MEDS: SENNOSIDES 8.6 MG TABLET 17.2 MG PO (20:32)
[2019-11-25] MEDS: ATORVASTATIN 10 MG TABLET PO (20:32)
--- NOTE | 2019-11-25 22:53 | PC.NURSE ---
Admit notes: Abbey admitted from ER to rm 208, awake, oriented only to name & birthday, and that she lives with her . Admitting nurse called her spouse Gigi to obtain admission information. VS stable, HR regular, sometimes diomedes to 53-54 bpm. Denies pain or SOB. Weak, BARBER INSTRUCTOR stated that she could not bear weight or stand when in ER. Voiding via bedpan. Pt is very forgetful, sometimes tries to get legs over side of bed, needs reminding not to get out of bed. Alarm active, fall precautions in place. Around 2129 patient found by AIR GRINDER in bed, pt having pulled out IV in her LAC, bleeding observed by AIR GRINDER. Arm cleaned, no further bleeding observed, site dry/intact with tiny pin-point bruise. IV restarted to her right hand, I placed coban over hand for safety.
[2019-11-26 04:00] VITALS: BP 141/74; PULSE 56; RESP 18; TEMP 36.5; O2SAT 94
[2019-11-26 08:00] VITALS: BP 139/75; PULSE 58; RESP 18; TEMP 36.3; O2SAT 97
[2019-11-26] MEDS: CHOLECALCIFEROL (VITAMIN D3) 1,000 UNIT TABLET 2000 UNIT PO (08:54)
[2019-11-26] MEDS: PANTOPRAZOLE 20 MG TABLET PO ×2 (08:54→20:37)
[2019-11-26] MEDS: TOLTERODINE LA 2 MG CAP PO (08:54)
[2019-11-26] MEDS: PROPRANOLOL ER 60 MG CAPSULE PO (08:54)
[2019-11-26] MEDS: LOSARTAN 50 MG TABLET PO (08:54)
[2019-11-26] MEDS: DOCUSATE 100 MG CAPSULE PO ×2 (08:54→20:35)
[2019-11-26] MEDS: ENOXAPARIN 40 MG/0.4 ML SYRINGE SUBCUT (08:54)
--- NOTE | 2019-11-26 10:23 | PT.IIE ---
Surgical History (Last Reviewed 11/25/19 @ 18:23 by Homa Hein MD) Status post laminectomy (Acute) Status post surgery (11/06/15) Status post tubal ligation Medical History (Last Reviewed 11/25/19 @ 18:23 by Homa Hein MD) Chronic constipation (Chronic) Depression (Chronic) Excessive daytime sleepiness (Chronic) GERD (gastroesophageal reflux disease) (Acute) HTN (hypertension) (Chronic) Long-term memory impairment (Chronic) Neuropathy (Chronic) Obstructive sleep apnea of adult (Chronic ~1999) Primary insomnia (Chronic) Snoring (Chronic) Physical Therapy Inpatient Evaluation/Re-Eval M1 PT/OT-IP Prior Functional Status Start: 11/26/19 12:54 Freq: NEEDED Status: Active Protocol: Document 11/26/19 10:23 AB (Rec: 11/26/19 13:07 AB [id number]) Medical Review Prior Functional Status Medical History Reviewed Yes Communication able to make needs known but with confusion and unable to give info regarding PLOF/home set up Mobility and Gait per EMR: pt's spouse assists pt with ADL's and transfers, able to ambulate using 4WW with spouse assisting and w/c follow Social History Household Members spouse Living Arrangements House Number of Floors (Floors) One Floor Number of Stairs To Enter/Railing? information obtained from EMR as pt cannot provide info due to dementia No steps to enter Home Environment High Toilet,Walk in Shower Home Equipment Raised Toilet Seat w/Armrests, Grab Bars Near Toilet,Grab Bars In Shower Additional Social History Comment pt has a lift recliner M2 PT-IP Current Condition Start: 11/26/19 12:54 Freq: NEEDED Status: Active Protocol: Document 11/26/19 10:23 AB (Rec: 11/26/19 13:07 AB [id number]) Physical Therapy Current Condition Current Condition Evaluation Date 11/26/19 Treatment Diagnosis dementia; weakness Onset Date 11/25/19 Precautions Other Precautions falls M3 PT-IP Subjective Start: 11/26/19 12:54 Freq: NEEDED Status: Active Protocol: Document 11/26/19 10:23 AB (Rec: 11/26/19 13:07 AB [email or web address]) Subjective Physical Therapy Visit Type Type Initial Evaluation Visit Start Time 10:23 Visit Stop Time 10:54 Total Visit Minutes 31 Number of MACHINE PACKER Visits 0 Physical Therapy Visit Comments Patient Comments pt requesting to use the toilet M4 PT-IP Mobility and Gait Start: 11/26/19 12:54 Freq: NEEDED Status: Active Protocol: Document 11/26/19 10:23 AB (Rec: 11/26/19 13:07 AB [id number]) PT-Bed Mobility Assessment Supine to Sit Supine to Sit Maximum Assistance,1 Person Assistance,Head of Bed Elevated Scooting Scooting to Edge of Bed Maximum Assistance PT-Transfer Assessment Sit to and From Stand Sit to and from Stand Maximum Assistance,1 Person Assistance,Use of Upper Extremities Equipment Transfer Assistive Device Gait Belt,Front Wheeled Walker Orthotic/Prosthetic Devices or Brace: No Transfers Transfer Destination Bedside Commode Transfer Technique Stand Pivot Transfer Ability Level of Assist Maximum Assistance,2 Person Assistance,Use of Upper Extremities Comments Mobility Comments assisted pt with putting shoes on and AFO on RLE. completed supine to sit max A and cues. completed sit to stand from EOB x 3 reps max A and cues. pt tends to be resistive with increase posterior pushing during sit to stand despite instruction and pushes herself back to sitting instead of standing. completed sit to stand again max X 2 and max cues and completed stand pivot transfer using FWW max A x 2 and max cues. completed sit to stand from bedside commode max A x 2 and max cues and required max A x 2 to maintain standing while assisted with hygiene care and brief management. attempted to transfer to chair x 2 but pt unable to stand long enough to transfer. completed pivot transfer with PT in front and nurse behind the pt. positioned pt on chair. call light and table placed wtihin reach. Gait Assessment Comments Gait Comments unable at this time PT-Balance Assessment Sitting Balance and Reactions Static Sitting Balance Ability Good Dynamic Sitting Balance Ability Fair Standing Balance and Reactions Static Standing Balance Ability Poor Dynamic Standing Balance Ability Poor Device Used FWW M5 PT-IP Objective Assessments Start: 11/26/19 12:54 Freq: NEEDED Status: Active Protocol: Document 11/26/19 10:23 AB (Rec: 11/26/19 13:07 AB [id number]) Orientation Orientation/Cognition Level of Alertness Confusional State Orientation Name Safety Awareness Decreased Safety Awareness Memory Description Short Term Impaired,Jail Impaired Strength Lower Extremity Strength Assessment Right Impaired Ankle foot drop 0/5 DF M6 PT-IP Treatment Start: 11/26/19 12:54 Freq: NEEDED Status: Active Protocol: Document 11/26/19 10:23 AB (Rec: 11/26/19 13:07 AB [id number]) Physical Therapy Treatment Education Education Provided Safety M7 PT-IP Assessment and Plan Start: 11/26/19 12:54 Freq: NEEDED Status: Active Protocol: Document 11/26/19 10:23 AB (Rec: 11/26/19 13:07 AB [email or web address]) PT Summary Assessment and Plan Potential Rehabilitation Potential Fair Status of Condition at Evaluation Evolving Summary Impairments Pain,ROM,Strength,Balance, Coordination,Sensation,Tone, Cognition,Bed Mobility, Transfers,Gait,Activity Tolerance Progress Towards Goals Slow Progress due to Activity Tolerance,Slow Progress - Other Assessment Summary pt requiring max A x 2 and max cues and unable to ambulate. pt with decrease cognitive level affecting following directions and mobility. pt will need SNF rehab. Goals Bed Mobility Goal Contact Guard Assistance Transfer Goal Minimal Assistance,Front Wheeled Walker Gait Goal Moderate Assistance,Front Wheel Walker Gait Distance 50 Days to Meet Goals 10 Frequency of Treatment Frequency Of Treatment Once a Day Treatment Plan Physical Therapy Treatment Plan Bed Mobility Training,Transfer Training,Gait Training, Therapeutic Exercise,Balance Retraining,Discharge Planning, Hot or Cold Pack,Neuromuscular Re-ed,Coordination Retraining Recommendations To Nursing Amount of Assist Needed Mechanical Lift Discharge Recommendations PT Discharge Recommendations SNF Rehab Transportation Needs at Discharge Wheelchair/Cabulance
--- NOTE | 2019-11-26 10:31 | PM.PN.1 ---
Subjective Subjective Interval history: The patient is a 79-year-old female admitted to the hospital for increasing confusion, weakness and inability to ambulate. Patient has no specific complaints today. She states she needs to go home. Patient has had no events overnight Exam Vital Signs (past 8 hours): - 11/26/19 04:00 11/26/19 08:00 Temperature 97.7 F 97.3 F L Pulse Rate 56 L 58 L Respiratory Rate 18 18 Blood Pressure 141/74 H 139/75 Pulse Oximetry 94 97 Oxygen Delivery Method Room Air Oxygen Flow Rate 0 Narrative Exam Narrative: Pleasant but confused female in no obvious distress Lungs: Clear to auscultation Cardiac exam: Regular rate and rhythm normal S1-S2 2/6 systolic ejection Abdomen: Soft nontender nondistended Extremities: No edema Neuro: Patient is awake and alert, she does have cogwheeling noted, as an intention tremor, she remains confused, but does not appear to have any active hallucinations at this time. Objective Labs Result Diagrams: 11/25/19 14:10 11/25/19 14:10 Labs: Laboratory Results - last 24 hr 11/25/19 11/25/19 11/25/19 14:10 14:10 14:10 WBC 6.1 RBC 4.27 Hgb 13.1 Hct 39.0 MCV 91.2 MCH 30.7 MCHC 33.7 RDW 14.1 Plt Count 205 Neut % (Auto) 57.7 Lymph % (Auto) 32.5 [place] % (Auto) 6.8 Eos % (Auto) 2.1 Baso % (Auto) 0.9 Neut # (Auto) 3500 Lymph # (Auto) 2000 [place] # (Auto) 400 Eos # (Auto) 100 Baso # (Auto) 100 PT 11.1 INR 1.0 APTT 31 D Sodium 135 L Potassium 4.1 Chloride 99 Carbon Dioxide 29 BUN 15 Creatinine 0.73 Estimated GFR > 60.0 BUN/Creatinine Ratio 20.5 Glucose 112 H Lactate Calcium 9.1 Total Bilirubin 0.4 AST 20 ALT 13 Alkaline Phosphatase 77 Total Creatine Kinase 23 L CK-MB (CK-2) TNP CK-MB (CK-2) Rel Index TNP Troponin I < 0.012 Total Protein 6.7 Albumin 4.1 Globulin 2.6 Albumin/Globulin Ratio 1.6 Lipase 77 Procalcitonin Urine RBC Urine WBC Ur Squamous Epith Cells Urine Bacteria Ur Culture Indicated? COVID-19 PCR 11/25/19 11/25/19 11/25/19 14:37 14:37 14:45 WBC RBC Hgb Hct MCV MCH MCHC RDW Plt Count Neut % (Auto) Lymph % (Auto) [place] % (Auto) Eos % (Auto) Baso % (Auto) Neut # (Auto) Lymph # (Auto) [place] # (Auto) Eos # (Auto) Baso # (Auto) PT INR APTT Sodium Potassium Chloride Carbon Dioxide BUN Creatinine Estimated GFR BUN/Creatinine Ratio Glucose Lactate 1.4 Calcium Total Bilirubin AST ALT Alkaline Phosphatase Total Creatine Kinase CK-MB (CK-2) CK-MB (CK-2) Rel Index Troponin I Total Protein Albumin Globulin Albumin/Globulin Ratio Lipase Procalcitonin < 0.05 Urine RBC Urine WBC Ur Squamous Epith Cells Urine Bacteria Ur Culture Indicated? COVID-19 PCR Negative 11/25/19 15:10 WBC RBC Hgb Hct MCV MCH MCHC RDW Plt Count Neut % (Auto) Lymph % (Auto) [place] % (Auto) Eos % (Auto) Baso % (Auto) Neut # (Auto) Lymph # (Auto) [place] # (Auto) Eos # (Auto) Baso # (Auto) PT INR APTT Sodium Potassium Chloride Carbon Dioxide BUN Creatinine Estimated GFR BUN/Creatinine Ratio Glucose Lactate Calcium Total Bilirubin AST ALT Alkaline Phosphatase Total Creatine Kinase CK-MB (CK-2) CK-MB (CK-2) Rel Index Troponin I Total Protein Albumin Globulin Albumin/Globulin Ratio Lipase Procalcitonin Urine RBC 1-5/hpf Urine WBC 5-10/hpf H Ur Squamous Epith Cells 5-10 /hpf H Urine Bacteria Moderate (10-30) H Ur Culture Indicated? Cult not indicated COVID-19 PCR Assessment & Plan Assessment & Plan narrative: 79-year-old female with progressive dementia admitted to the hospital for inability to ambulate, weak, progressive confusion -patient with hypersomnia, visual hallucinations, dementia, with an intention tremor -this is suggestive of Lewy body dementia - patient appears to have worsening of her dementia -suspect inability to 1 may be related to either dementia or Parkinson's disease -patient is unable to be managed at home and likely would benefit from dementia care unit -will obtain PT OT consultation -will arrange for social work consult as she likely will need placement -will continue melatonin -will avoid antipsychotics -Need to determine in whether patient will be able to return home or whether long-term dementia unit will be needed - will resume seroquel as the only medication safe to be used with DLB 2. Hypertension -continue losartan 3. Hyperlipidemia -continue atorvastatin 4. Chronic constipation -will continue bowel rest 5. Bladder spasm -continue her usual home medication 6. Depression -continue sertaline - 7. Intention tremor --continue propanolol for now -?Parkinson's disease
[2019-11-26 12:15] VITALS: BP 132/70; PULSE 64; RESP 18; TEMP 36.6; O2SAT 97
--- NOTE | 2019-11-26 13:27 | CM.DANOTE ---
Discharge Planning/Care Management CM Discharge Assessment Start: 11/26/19 12:52 Freq: Status: Active Protocol: Document 11/26/19 12:52 ITV (Rec: 11/26/19 13:27 ITV [id number]) Discharge Planning Assessment Advance Directives? Yes: Directive to Physicians Advance Directives on File Yes History Provided By Medical Record Prior Living Arrangements House Household Members spouse Independent with ADL's No Is patient alert and oriented? No White-board Updated in Patient Room with Yes name and ext. # of Land Developer Review Status In Process
--- NOTE | 2019-11-26 13:27 | CM.DANOTE ---
Addendum entered by Sade Palacios LPN 11/26/19 14:43: Have left a vm for [facility] re pt in the hospital and will fax clinical update now to them. Addendum entered by Sade Palacios LPN 11/26/19 14:10: and is aware that Medicaid may be an option but expressed fear that he will be left without anything to live on. He wondered about a medication: donepezil that she says Dr. Riley pt his on some time ago and that seemed to stabilize her quite a bit. He said that this medication was taken away during one of the admissions here and he wondered if Dr. Hein could consider this. He also stated that pt was on Seroquel but has not taken it. I only gave it to her once as she seemed to do worse.. Dr. Riley has been doing virtual visits with pt/Gigi and next visit set for a couple weeks. Have updated Dr. Hein. She states she will reach out to Dr. Riley for discussion and recommendations, will look the medications in more detail and then will gladly meet with Gigi for a discussion/update. Gigi is aware. He is also given contact info for CM/DCP dept. P: to be determined..problems are identified in part but no clear solutions at this time. IF pt can mobilize enough for Gigi to take her home with [facility] resumption that will be a short term solution. Original Note: Discharge Planning/Care Management DCP: assessment: case received, EMR reviewed and including the last admission to : 11/11/-11/13: OBS status. At that time the HOSPICE ADMITTING CLERK in the ER did see pt and then she was followed by CM/HOSPICE ADMITTING CLERK team for d/c planning. Met with pt during Team Bedside Rounds, was updated by Dr. Hein and met now with pt's Gigi, at bedside. Introduced self and role. Pt is a 79 year old female who admitted yesterday late afternoon to care of the hospitalist team. Admission status: OBS: confirmed by UR MARYJO Menjivar. Payer: Medicare and [employer]. PCP: Dr. Bales Neurologist: Dr. Riley. Followed up with Gigi on the recommendations given to him last admission. He confirmed that [facility] were seeing pt for RN,PT/OT and HOSPICE ADMITTING CLERK. He is hopeful that if pt can just be stabilized enough to take a few steps he can take her home and continue to care for her. He stated that he had tried to follow up with [facility] with intent to hire auto parts professional care but I never was able to have a conversation with them and I just let it go. Pt expresses concerns re finances. He says her knowns that a memory care facility would be best for his but It is so much money that it is impossible. He has reached out to [facility] Discharge Assessment Start: 11/26/19 12:52 Freq: Status: Active Protocol: Document 11/26/19 12:52 ITV (Rec: 11/26/19 13:27 ITV [id number]) Discharge Planning Assessment Advance Directives? Yes: Directive to Physicians Advance Directives on File Yes History Provided By Medical Record Prior Living Arrangements House Household Members spouse Independent with ADL's No Is patient alert and oriented? No If patient plan is SNF: Has PASSR been No completed? Whiteboard Updated in Patient Room with Yes name and ext. # of Director Toxicology Review Status In Process
--- NOTE | 2019-11-26 13:38 | OT.IP.EVAL ---
Past Medical History (Last Reviewed 11/25/19 @ 18:23 by Homa Hein MD) Chronic constipation (Chronic) Depression (Chronic) Excessive daytime sleepiness (Chronic) GERD (gastroesophageal reflux disease) (Acute) HTN (hypertension) (Chronic) Long-term memory impairment (Chronic) Neuropathy (Chronic) Obstructive sleep apnea of adult (Chronic ~1999) Primary insomnia (Chronic) Snoring (Chronic) Surgical History (Last Reviewed 11/25/19 @ 18:23 by Homa Hein MD) Status post laminectomy (Acute) Status post surgery (11/06/15) Status post tubal ligation Occupational Therapy Inpatient Evaluation/Re-Eval M1 PT/OT-IP Prior Functional Status Start: 11/26/19 13:45 Freq: NEEDED Status: Active Protocol: Document 11/26/19 13:45 [facility] (Rec: 11/26/19 14:20 [facility] [id number]) Medical Review Prior Functional Status Medical History Reviewed Yes Communication able to make needs known but with confusion and unable to give info regarding PLOF/home set up Mobility and Gait per EMR: pt's spouse assists pt with ADL's and transfers, able to ambulate using 4WW with spouse assisting and w/c follow Activities of Daily Living and IADL's Pt's spouse states pt mainly able to feed herself and do grooming needs after set-up. Social History Household Members spouse Living Arrangements House Number of Floors (Floors) One Floor Number of Stairs To Enter/Railing? No steps to enter Home Environment High Toilet,Walk in Shower Home Equipment Raised Toilet Seat w/Armrests, Grab Bars Near Toilet,Grab Bars In Shower Additional Social History Comment pt has a lift recliner M2 OT-IP Current Condition Start: 11/26/19 13:45 Freq: Status: Active Protocol: Document 11/26/19 13:45 [facility] (Rec: 11/26/19 14:20 [facility] [id number]) Occupational Therapy Current Condition Current Condition Evaluation Date 11/26/19 Treatment Diagnosis Increased weakness, decreased mobility Diagnosis Onset Date 11/25/19 M3 OT- IP Subjective and Pain Start: 11/26/19 13:45 Freq: Status: Active Protocol: Document 11/26/19 13:45 CCC (Rec: 11/26/19 14:20 [facility] [id number]) OT- Subjective Occupational Therapy Visit Type Type Initial Evaluation Visit Start Time 13:20 Visit Stop Time 13:38 Total Visit Minutes 18 Occupational Therapy Visit Comments Patient Comments Pt's present in the room and agreed to try to get up. Patient/Caregiver Goals To go home. OT Pain Assessment Pain When Pain Assessed At Rest Pain Present Pain Present Denied Pain M4 OT- IP ADL's Start: 11/26/19 13:45 Freq: Status: Active Protocol: Document 11/26/19 13:45 [facility] (Rec: 11/26/19 14:20 [facility] [id number]) OT [id number] Comments OT Self-Feeding Comments After set-up pt able to eat her salad. OT ADL-Grooming General Evaluation Grooming Ability Standby Assistance Areas Needing Assistance Retrieving/Set-up of Grooming Items Comments OT Grooming Comments Pt able to do grooming needs after set-up. OT ADL-Oral Care General Eval Oral Care Ability Standby Assistance Comments Oral Care Comments VC to sequence through the task. OT ADL-Dressing Comments OT Dressing Comments Pt dependent for all LB dressing needs which is baseline for pt as pt's states has been assisting her for all dressing needs. OT ADL-Toileting Comments OT Toileting Comments Pt not having to go. M5 OT- IP IADL's Start: 11/26/19 13:45 Freq: Status: Active Protocol: Document 11/26/19 13:45 [facility] (Rec: 11/26/19 14:20 [facility] [id number]) OT-Instrumental Activities of Daily Living Home Safety Awareness Awareness of Need for Assistance at Home Decreased Awareness Ability to Problem Solve Emergency Unable to Problem Solve Situations Medication Management Medication Management Caregiver Administers Money Management Money Management Caregiver Provides Assistance Meal Preparation Meal Preparation Caregiver Provides Assist Inspector Of Dredging Inspector Of Dredging Caregiver Provides Assist Driving Driving Caregiver Provides Assist M6 OT- IP Functional Cognition Start: 11/26/19 13:45 Freq: Status: Active Protocol: Document 11/26/19 13:45 [facility] (Rec: 11/26/19 14:20 [facility] [id number]) Cognitive Factors Limiting Selfcare Function Cognitive Ability Level of Alertness Alert Patient Orientation Name Ability to Follow Commands Able to Follow One Step Commands with Increased Time, Able to Follow One Step Commands with Repetition Memory Description Short Term Impaired,Scientist Electronics Impaired,Working Impaired Safety Awareness Underestimates Need for Assistance Problem Solving Ability Unable to Identify Errors, Needs Assist to Identify Solutions Cognitive Comments Cognitive Assessment Comments Pt appears to be close to baseline for cognition as has history of Alzheimer's dementia. Per pt's needs cues at home for sequence of task and safety. OT- Vision and Hearing OT- Vision Assessment Visual Acuity Glasses All The Time M7 OT- IP Mobility and Balance Start: 11/26/19 13:45 Freq: Status: Active Protocol: Document 11/26/19 13:45 [facility] (Rec: 11/26/19 14:20 [facility] [id number]) OT-Transfer Assessment Sit to and From Stand Sit to and from Stand Total Assistance Comments Mobility Comments Attempted to stand pt x2 unable to stand pt at this time. Pt tends to lean into posterior tilt and unable to stand. Pt also not able to coordinate her movement to scoot forward in the recliner and needing MAX A and heavy assist to use green pad to get her to the edge of the recliner. At this time, would be best to use mechaincal lift to assist pt for all mobility needs. OT- Gait Assessment Comments Gait Ability Comments Not appropriate at this time. OT- Balance Assessment Sitting Balance and Reactions Static Sitting Balance Ability Fair M8 OT- IP Objective Assessments Start: 11/26/19 13:45 Freq: Status: Active Protocol: Document 11/26/19 13:45 [facility] (Rec: 11/26/19 14:20 [facility] [id number]) OT Gross Range of Motion Upper Extremity Range of Motion Assessment Bilaterally Impaired ROM Impairments RUE shoulder flexion 0-70, LUE shoulder flexion 0-100. OT Strength Comments Strength Comments NOt able to formally assess, at least 4-/5 from elbow to distal. M9 OT- IP Assessment and Plan Start: 11/26/19 13:45 Freq: Status: Active Protocol: Document 11/26/19 13:45 [facility] (Rec: 11/26/19 14:20 [facility] [id number]) OT Summary Assessment and Plan Potential Rehabilitation Potential Fair Analytic Complexity at Evaluation Low Summary OT Impairments Strength,Balance,Functional Mobility,Toileting,Toilet Transfers,Shower Transfers, Activity Tolerance Progress Towards Goals Slow Progress due to Medical Issues,Slow Progress due to Activity Tolerance,Slow Progress due to Cognition Assessment Summary Pt low complexity and here due to increased weakness and now not able to come to stand. Pt was here prior due to similar circumstances and eventually went home even though OT/PT had recommended LTC, memory care or have another person in addition to her already assisting her. Still recommend pt go to LTC, memory care. At this time pt is still to great of care for her to be able to safely assist her. Goals Self-Feeding Goal Standby Assistance Grooming Goal Standby Assistance Toileting Goal Moderate Assistance Toilet Transfer Goal Standby Assistance Patient/Caregiver Education Goal Caregiver Independent Assisting Patient Days to Meet Goals 15 Frequency of Treatment Frequency Of Treatment Once a Day Treatment Plan OT Treatment Plan ADL Training,Functional Cognition Training,Functional Mobility,Patient/Family Education,Discharge Planning Other Treatment Recommendations and Next Transfer to [facility] with MAX AX2 Treatment Focus with FWW. Discharge Recommendations OT Discharge Recommendations LTAC Transportation Needs at Discharge Stretcher/Ambulance
[2019-11-26 15:55] VITALS: BP 148/86; PULSE 61; RESP 18; TEMP 36.3; O2SAT 96
--- NOTE | 2019-11-26 16:02 | OT.IP.TRT ---
Occupational Therapy Treatment Note M2 OT-IP Current Condition Start: 11/26/19 13:45 Freq: Status: Active Protocol: Document 11/26/19 13:45 [facility] (Rec: 11/26/19 14:20 [facility] [id number]) Occupational Therapy Current Condition Current Condition Evaluation Date 11/26/19 Treatment Diagnosis Increased weakness, decreased mobility Diagnosis Onset Date 11/25/19 M3 OT- IP Subjective and Pain Start: 11/26/19 13:45 Freq: Status: Active Protocol: Document 11/26/19 15:50 [facility] (Rec: 11/26/19 16:02 [facility] [id number]) OT- Subjective Occupational Therapy Visit Type Type Treatment Note Visit Start Time 15:38 Visit Stop Time 15:43 Total Visit Minutes 8 Occupational Therapy Visit Comments Patient Comments Pt wanting to use the BSC. Pt seen a second time as nursing aid wanting to use the sit to stand on the pt versus jonathan lift. Therefore went to see pt a second time to assess the safety and to see if it may be a possibility for pt to have a home to use, OT Pain Assessment Pain When Pain Assessed During Mobility Pain Present Pain Present Pain Reported M4 OT- IP ADL's Start: 11/26/19 13:45 Freq: Status: Active Protocol: Document 11/26/19 15:50 [facility] (Rec: 11/26/19 16:02 [facility] [id number]) OT ADL-Toileting General Evaluation Toileting Ability Total Assistance Areas Needing Assistance Manage Clothing,Perform Perineal Hygiene Comments OT Toileting Comments Dependent at this time, trial of sit to stander per nursing aid request and determined best to use a bed darling or use of jonathan lift sling to the BSC . M5 OT- IP IADL's Start: 11/26/19 13:45 Freq: Status: Active Protocol: Document 11/26/19 13:45 [facility] (Rec: 11/26/19 14:20 [facility] [email or web address]) OT-Instrumental Activities of Daily Living Home Safety Awareness Awareness of Need for Assistance at Home Decreased Awareness Ability to Problem Solve Emergency Unable to Problem Solve Situations Medication Management Medication Management Caregiver Administers Money Management Money Management Caregiver Provides Assistance Meal Preparation Meal Preparation Caregiver Provides Assist Mails Supervisor Mails Supervisor Caregiver Provides Assist Driving Driving Caregiver Provides Assist M6 OT- IP Functional Cognition Start: 11/26/19 13:45 Freq: Status: Active Protocol: Document 11/26/19 13:45 [facility] (Rec: 11/26/19 14:20 [facility] [id number]) Cognitive Factors Limiting Selfcare Function Cognitive Ability Level of Alertness Alert Patient Orientation Name Ability to Follow Commands Able to Follow One Step Commands with Increased Time, Able to Follow One Step Commands with Repetition Memory Description Short Term Impaired,Shelter Impaired,Working Impaired Safety Awareness Underestimates Need for Assistance Problem Solving Ability Unable to Identify Errors, Needs Assist to Identify Solutions Cognitive Comments Cognitive Assessment Comments Pt appears to be at baseline for cognition as has history of Alzheimer's dementia. Per pt's needs cues at home for sequence of task and safety. Noted in PM , pt more confused and not realizing that she was sitting on the BSC. OT- Vision and Hearing OT- Vision Assessment Visual Acuity Glasses All The Time M7 OT- IP Mobility and Balance Start: 11/26/19 13:45 Freq: Status: Active Protocol: Document 11/26/19 15:50 [facility] (Rec: 11/26/19 16:02 [facility] [id number]) OT-Transfer Assessment Sit to and From Stand Sit to and from Stand Total Assistance Transfers Transfer Ability Total Assistance,2 Person Assistance Technique Transfer Technique Mechanical Lift Comments Mobility Comments Trial of sit to stander for transfer from recliner to BSC and pt having difficulty to follow directions and keep her hands on the frame, and at the end pt's right leg came up from the platform as having difficulty to keep her hips lined up over her feet even with assist. Recommended that jonathan lift is the best option at this time for pt's mobility needs. OT- Balance Assessment Sitting Balance and Reactions Static Sitting Balance Ability Fair Dynamic Sitting Balance Ability Poor Standing Balance and Reactions Static Standing Balance Ability Poor Dynamic Standing Balance Ability Poor M8 OT- IP Objective Assessments Start: 11/26/19 13:45 Freq: Status: Active Protocol: Document 11/26/19 13:45 [facility] (Rec: 11/26/19 14:20 [facility] [id number]) OT Gross Range of Motion Upper Extremity Range of Motion Assessment Bilaterally Impaired ROM Impairments RUE shoulder flexion 0-70, LUE shoulder flexion 0-100. OT Strength Comments Strength Comments NOt able to formally assess, at least 4-/5 form elbow to distal. M9 OT- IP Assessment and Plan Start: 11/26/19 13:45 Freq: Status: Active Protocol: Document 11/26/19 15:50 [facility] (Rec: 11/26/19 16:02 [facility] [email or web address]) OT Summary Assessment and Plan Potential Rehabilitation Potential Fair Analytic Complexity at Evaluation Low Summary OT Impairments Strength,Balance,Functional Mobility,Toileting,Toilet Transfers,Shower Transfers, Activity Tolerance Progress Towards Goals Slow Progress due to Medical Issues,Slow Progress due to Activity Tolerance,Slow Progress due to Cognition Assessment Summary Noted this afternoon, pt more confused and not realizing that she was sitting on the BSC. Still strongly recommend that pt go to LTC, memory care. At this time too much care for pt's to assist, even if having another person to assist 19/09 to assist as well. Goals Self-Feeding Goal Standby Assistance Grooming Goal Standby Assistance Toileting Goal Moderate Assistance Toilet Transfer Goal Standby Assistance Patient/Caregiver Education Goal Caregiver Independent Assisting Patient Days to Meet Goals 25 Frequency of Treatment Frequency Of Treatment Once a Day Treatment Plan OT Treatment Plan ADL Training,Functional Cognition Training,Functional Mobility,Patient/Family Education,Discharge Planning Other Treatment Recommendations and Next [place] [facility] [place] Treatment Focus with FWW. Discharge Recommendations OT Discharge Recommendations LTAC Transportation Needs at Discharge Wheelchair/Cabulance,Stretcher /Ambulance
[2019-11-26 19:51] VITALS: BP 150/76; PULSE 63; RESP 16; TEMP 36.7; O2SAT 95
[2019-11-26] MEDS: ATORVASTATIN 10 MG TABLET PO (20:35)
[2019-11-26] MEDS: SERTRALINE 50 MG TABLET 100 MG PO (20:35)
[2019-11-26] MEDS: MELATONIN 3 MG TABLET 6 MG PO (20:35)
[2019-11-26] MEDS: SENNOSIDES 8.6 MG TABLET 17.2 MG PO (20:37)
[2019-11-26] MEDS: DONEPEZIL 5 MG TABLET PO (20:40)
--- NOTE | 2019-11-26 22:46 | PC.NURSE ---
Evening note: Park had a good night, although she is very confused, unable to hold memory for 30 seconds, oriented only to self & said my 's name is Gigi. VS stable, RA oxygen high 90's. Afebrile. She tries to get OOB often, throwing legs over side of bed, bed alarming often. Voiding via bedpan. Reminded to call nurse if she has any needs/concerns, she does not use call button but calls out often for help when sees nurse or ELECTRICAL TESTER walk by her door. Very weak, at shift change PT and ELECTRICAL TESTER attempted to get patient up with [id number] lift, Park unable to stand, PT instructed staff to use jonathan lift only. Fall precautions in place, alarm active at all times, pt is a high fall risk.
[2019-11-27] VITALS: BP 146/80; PULSE 70; RESP 18; TEMP 36.6; O2SAT 96
[2019-11-27 05:30] VITALS: BP 139/74; PULSE 68; RESP 18; TEMP 36.7; O2SAT 96
[2019-11-27 08:00] VITALS: BP 158/76; PULSE 67; RESP 19; TEMP 36; O2SAT 96
[2019-11-27] MEDS: PROPRANOLOL ER 60 MG CAPSULE PO (10:45)
[2019-11-27] MEDS: CHOLECALCIFEROL (VITAMIN D3) 1,000 UNIT TABLET 2000 UNIT PO (10:46)
[2019-11-27] MEDS: ENOXAPARIN 40 MG/0.4 ML SYRINGE SUBCUT (10:46)
[2019-11-27 10:47] VITALS: BP 158/76
[2019-11-27] MEDS: LOSARTAN 50 MG TABLET PO (10:47)
[2019-11-27] MEDS: PANTOPRAZOLE 20 MG TABLET PO (10:47)
[2019-11-27] MEDS: TOLTERODINE LA 2 MG CAP PO (10:48)
[2019-11-27 11:18] VITALS: BP 142/78; PULSE 54; RESP 19; TEMP 36.4; O2SAT 96
--- NOTE | 2019-11-27 12:35 | OT.IP.TRT ---
Occupational Therapy Treatment Note M2 OT-IP Current Condition Start: 11/26/19 13:45 Freq: Status: Active Protocol: Document 11/26/19 13:45 [facility] (Rec: 11/26/19 14:20 [facility] [email or web address]) Occupational Therapy Current Condition Current Condition Evaluation Date 11/26/19 Treatment Diagnosis Increased weakness, decreased mobility Diagnosis Onset Date 11/25/19 M3 OT- IP Subjective and Pain Start: 11/26/19 13:45 Freq: Status: Active Protocol: Document 11/27/19 12:43 [facility] (Rec: 11/27/19 13:06 [facility] [id number]) OT- Subjective Occupational Therapy Visit Type Type Treatment Note Visit Start Time 12:07 Visit Stop Time 12:35 Total Visit Minutes 28 Occupational Therapy Visit Comments Patient Comments After letting that know she has pudding on her tray for lunch, pt agreed to get up. PT present due to pt needing extensive skilled assist for the transfer. Patient/Caregiver Goals Pt not able to state any goals besides wanting to eat her pudding. OT Pain Assessment Pain When Pain Assessed During Mobility Pain Present Pain Present Pain Reported M4 OT- IP ADL's Start: 11/26/19 13:45 Freq: Status: Active Protocol: Document 11/27/19 12:43 [facility] (Rec: 11/27/19 13:06 [facility] [id number]) OT ESI-Sibb-Dhxyrvm General Evaluation Self-Feeding Ability Moderate Assistance Areas Needing Assistance Cutting Food,Loading Utensil, Opening Containers Comments OT Self-Feeding Comments Assist for set-up, cutting her meat, assist for orientation of food on the plate and reminders throughout the meal as pt forgot what she was eating. Pt tends to want to use her hands to eat with. Pt able to manage the spoon easier than the fork at this time. Pt would benefit from larger handled utensils. Pt tends to want to neglect use of her right hand . Let nursing know that pt will need supervision for eating needs . Pt appear to be able to chew and swallow the food appropriately just needing cues to sequence for use of utensils, initiate to eat, and help sequence through the task. OT ADL-Dressing General Eval Lower Body Dressing Ability Total Assistance Areas Needing Assistance Socks,Shoes,Orthosis/ Prosthesis M5 OT- IP IADL's Start: 11/26/19 13:45 Freq: Status: Active Protocol: Document 11/26/19 13:45 [facility] (Rec: 11/26/19 14:20 [facility] [id number]) OT-Instrumental Activities of Daily Living Home Safety Awareness Awareness of Need for Assistance at Home Decreased Awareness Ability to Problem Solve Emergency Unable to Problem Solve Situations Medication Management Medication Management Caregiver Administers Money Management Money Management Caregiver Provides Assistance Meal Preparation Meal Preparation Caregiver Provides Assist Magazine Repairer Magazine Repairer Caregiver Provides Assist Driving Driving Caregiver Provides Assist M6 OT- IP Functional Cognition Start: 11/26/19 13:45 Freq: Status: Active Protocol: Document 11/27/19 12:43 [facility] (Rec: 11/27/19 13:06 [facility] [id number]) Cognitive Factors Limiting Selfcare Function Cognitive Ability Level of Alertness Confusional State,Drowsy Patient Orientation Name Cognitive Comments Cognitive Assessment Comments Pt mainly just orientated to name. Pt did not remember her 's name. Pt initially thought that her was already , and after getting her a hint his name starts with Mi.. able to state Gigi. Pt not able to identify any of the food items on her tray and also not able to recall any of the food after just telling her the names of the food. Pt needing cues to look to the left to find the water bottle. OT- Vision and Hearing OT- Vision Assessment Vision Assessment Comments Cues to turn her head to the left to find the water bottle . M7 OT- IP Mobility and Balance Start: 11/26/19 13:45 Freq: Status: Active Protocol: Document 11/27/19 12:43 [facility] (Rec: 11/27/19 13:06 [facility] [id number]) OT- Bed Mobility Assessment Supine to Sit Supine to Sit Assist Maximum Assistance,2 Person Assistance,Head of Bed Elevated Scooting Scooting to Edge of Bed Maximum Assistance,2 Person Assistance OT-Transfer Assessment Transfers Transfer Ability Total Assistance,2 Person Assistance Technique Transfer Destination Bed,Chair Transfer Technique Squat Pivot Devices Transfer Assistive Devices Gait Belt Comments Mobility Comments Attempted to stand pt from high bed and unable to stand with after two attempts. Pt tends to lean backwards. Pt's posture while seated on the edge of the bed with MODA tends to be in posterior tilt and pt states feels that she is falling and needing reassurance that she is sitting on the bed. PT/OT performed squat pivot with total assist from the bed to recliner. Pt will need to continue to use jonathan lift for transfer needs at this time. OT- Gait Assessment Comments Gait Ability Comments NOt at this time. OT- Balance Assessment Sitting Balance and Reactions Static Sitting Balance Ability Poor Dynamic Sitting Balance Ability Poor Standing Balance and Reactions Static Standing Balance Ability Poor M8 OT- IP Objective Assessments Start: 11/26/19 13:45 Freq: Status: Active Protocol: Document 11/26/19 13:45 [facility] (Rec: 11/26/19 14:20 [facility] [id number]) OT Gross Range of Motion Upper Extremity Range of Motion Assessment Bilaterally Impaired ROM Impairments RUE shoulder flexion 0-70, LUE shoulder flexion 0-100. OT Strength Comments Strength Comments NOt able to formally assess, at least 4-/5 form elbow to distal. M9 OT- IP Assessment and Plan Start: 11/26/19 13:45 Freq: Status: Active Protocol: Document 11/27/19 12:43 [facility] (Rec: 11/27/19 13:06 [facility] [id number]) OT Summary Assessment and Plan Potential Rehabilitation Potential Poor Analytic Complexity at Evaluation Low Summary OT Impairments Range of Motion,Balance, Coordination,Functional Cognition,Functional Mobility, Self-Feeding,Grooming,Dressing ,Toileting,Bathing,Toilet Transfers,Shower Transfers, Activity Tolerance Progress Towards Goals Slow Progress due to Medical Issues,Slow Progress due to Activity Tolerance,Slow Progress due to Cognition Assessment Summary Pt still total assist for transfers at this time , needing MAX vc to help sequence through the task of eating at this time. Per case management, looking at getting pt to [facility]. Goals Grooming Goal Standby Assistance Dressing Goal Moderate Assistance Toileting Goal Moderate Assistance Toilet Transfer Goal Moderate Assistance Days to Meet Goals 25 Frequency of Treatment Frequency Of Treatment Once a Day Treatment Plan Other Treatment Recommendations and Next Transfer to [facility] [place] with MAX A x2. Treatment Focus Discharge Recommendations OT Discharge Recommendations LTAC Home Equipment Needs defer to [facility] Transportation Needs at Discharge Wheelchair/Cabulance
--- NOTE | 2019-11-27 13:00 | CM.DPC ---
Addendum entered by Isabela Peacock R.N. 11/27/19 14:47: Orders completed. Faxed med sheets over to [facility], and placed originals back in chart. Met with patient and , Gigi. He is aware that [facility] will pick patient up at 1300. Patient confirmed that his income is too much to apply for Medicaid. He is hopeful that after [facility], patient can go back home with him. Original Note: DCP Cont: Contacted , Gigi, for patient is still observation status, and EHR also indicated observation status. Patient is a hoier lift, and is not able to care for at home until she is stronger. Discussed [facility] respite. Let know that cost is approximately $300.00 a day, with $300.00 down, according to Licha, e mail system administrator. Spoke to Licha at [facility] and she will contact . Licha stated she does have availability in [facility], and will contact this case resolution specialist after she speaks to . Licha called back and confirmed that she can accept patient today. Stated, that order picker time would have to be later, for needs to fill out paper work. Set up a time between [id number] Smith, and he will write orders. Updated nurse, Sonya as well. P.T. and O.T. worked with patient again today and confirmed that she is still hoier lift. Faxed over H&P, COVID results, and P.T. notes as well. Awaiting for orders. P: Patient is to go to [facility] today on respite. Isabela Peacock RN/Adult Education Teacher
--- NOTE | 2019-11-27 13:12 | PT.IPTN ---
Physical Therapy Treatment Note M2 PT-IP Current Condition Start: 11/26/19 12:54 Freq: NEEDED Status: Active Protocol: Document 11/26/19 10:23 [facility] (Rec: 11/26/19 13:07 [facility] [id number]) Physical Therapy Current Condition Current Condition Evaluation Date 11/26/19 Treatment Diagnosis dementia; weakness Onset Date 11/25/19 Precautions Other Precautions falls M3 PT-IP Subjective Start: 11/26/19 12:54 Freq: NEEDED Status: Active Protocol: Document 11/27/19 12:10 [facility] (Rec: 11/27/19 13:12 [id number]) Subjective Physical Therapy Visit Type Type Treatment Note Visit Start Time 12:10 Visit Stop Time 12:35 Total Visit Minutes 25 Notes co-tx with OT [place] Number of [employer]JOR ASSEMBLY INSPECTOR Visits 0 Physical Therapy Visit Comments Patient Comments Pt pointed her chair as pudding. M4 PT-IP Mobility and Gait Start: 11/26/19 12:54 Freq: NEEDED Status: Active Protocol: Document 11/27/19 12:10 [facility] (Rec: 11/27/19 13:12 [id number]) PT-Bed Mobility Assessment Supine to Sit Supine to Sit Maximum Assistance,1 Person Assistance,2 Person Assistance Scooting Scooting to Edge of Bed Maximum Assistance PT-Transfer Assessment Sit to and From Stand Sit to and from Stand Maximum Assistance,2 Person Assistance,Use of Upper Extremities Equipment Transfer Assistive Device Gait Belt,Front Wheeled Walker Orthotic/Prosthetic Devices or Brace: No Transfers Transfer Destination Bed,Toilet Transfer Technique Squat Pivot Transfer Ability Level of Assist Total Assistance,2 Person Assistance,Use of Upper Extremities Comments Mobility Comments Pt was in bed upon PT and OT arrival. Only able to respond to simple questions and she quickly forgot it. Instructed pt to attempt sitting at the EOB on L side initially and pt was able to initiate UEs and LEs to pivot minimally but this PT had to provide repeated cues since pt forgot what she was doing every few seconds. Pt did attmpeted but unsuccessful and needed Max 2 PA to sit up. She then showed a significant retropulsion and needed assistance to keep her feet on the ground. This PT assisted donning her shoes and RAFO. Attempted to stand pt up after with 2 p Max A but unsuccessful since pt cannot maintain upright position and relied therapist assistance on her trunk. Completed 2 trials but unsuccessful. This PT then used squat pivot transfers total A to her L side to bedside chair. Pt was very shaky and stiff during transfer who had difficulty placing her steps. She then sat in chair w/o discomfort and chair alarm activated. Tray table placed in front of her and she was not able to identify her food and OT needed to assist her. Left pt with door open facing nursing station for constant supervision Gait Assessment Comments Gait Comments unable at this time Stair Climbing Assessment Comments Stair Climbing Comments unable at this time PT-Balance Assessment Sitting Balance and Reactions Static Sitting Balance Ability Good Dynamic Sitting Balance Ability Fair Standing Balance and Reactions Static Standing Balance Ability Poor Dynamic Standing Balance Ability Poor Device Used FWW M5 PT-IP Objective Assessments Start: 11/26/19 12:54 Freq: NEEDED Status: Active Protocol: Document 11/26/19 10:23 [facility] (Rec: 11/26/19 13:07 [facility] [id number]) Orientation Orientation/Cognition Level of Alertness Confusional State Orientation Name Safety Awareness Decreased Safety Awareness Memory Description Short Term Impaired,Budget Director Impaired Strength Lower Extremity Strength Assessment Right Impaired Ankle foot drop 0/5 DF M6 PT-IP Treatment Start: 11/26/19 12:54 Freq: NEEDED Status: Active Protocol: Document 11/26/19 10:23 [facility] (Rec: 11/26/19 13:07 [facility] [id number]) Physical Therapy Treatment Education Education Provided Safety M7 PT-IP Assessment and Plan Start: 11/26/19 12:54 Freq: NEEDED Status: Active Protocol: Document 11/27/19 12:10 (Rec: 11/27/19 13:12 [id number]) PT Summary Assessment and Plan Potential Rehabilitation Potential Fair Status of Condition at Evaluation Evolving Summary Impairments Pain,ROM,Strength,Balance, Coordination,Sensation,Tone, Cognition,Bed Mobility, Transfers,Gait,Activity Tolerance Progress Towards Goals Slow Progress due to Activity Tolerance,Slow Progress - Other Assessment Summary pt cont requiring max A x 2 and max cues for bed mobility and total assist for squat pivot transfer to chair. Also noticed pt was unable to identify simple objects around and had difficulty choosing her foot to eat. Recommended nursing staff that pt will need assistance for eating at this point and jonathan lift for transfers. Pt's cognitive level significantly affecting following directions and mobility. pt will need SNF rehab. Spoke to ASHLEY Parrish afterwards and she stated Kina DEWEY will come to assess pt today. Goals Bed Mobility Goal Moderate Assistance Transfer Goal Moderate Assistance,Front Wheeled Walker Gait Goal Moderate Assistance,Front Wheel Walker Gait Distance 20 Days to Meet Goals 10 Frequency of Treatment Frequency Of Treatment Once a Day Treatment Plan Physical Therapy Treatment Plan Bed Mobility Training,Transfer Training,Gait Training, Therapeutic Exercise,Balance Retraining,Discharge Planning, Hot or Cold Pack,Neuromuscular Re-ed,Coordination Retraining Recommendations To Nursing Amount of Assist Needed Mechanical Lift Discharge Recommendations PT Discharge Recommendations SNF Rehab Transportation Needs at Discharge Wheelchair/Cabulance
--- NOTE | 2019-11-27 14:00 | P.DS_ITS ---
History of Present Illness History of Present Illness Chief complaint: Increased weakness Narrative: Patient is a 79-year-old female with a history of dementia, constipation, insomnia, obstructive sleep apnea, who was discharged from the hospital 10 days ago after treatment for progressive dementia, hypertension, overactive bladder, hyperlipidemia. The patient is unable to provide any history. According to the patient's since going home they have had home health. The home health providers have had difficulty working with her as the patient often falls asleep. In addition today they were out to see and were unable to stand the patient up. As they were unable to ambulate or move she was brought into the hospital for evaluation. The patient is confused and unable to provide any history. According to her there have been concerns that she has Parkinson's disease. He said she was evaluated but not definitively diagnosed with it. In addition the patient has significant delusions, he also reports visual hallucinations. The patient has insomnia, and also frequently falls asleep during the daytime. Fortunately she is had no significant falls lately. Her has tried to be careful such that she does not have a fall. Patient was discharged from the hospital 10 days ago with home health. It appears that because of her progressive cognitive decline it is difficult for he r to manage her at home. Patient is admitted to the hospital for further evaluation. Discharge Providers Provider Date of admission: 11/25/19 15:54 Discharge Date: 11/27/19 Primary care physician: Cihn Bales MD Consults: 11/25/19 18:18 Consult to Discharge Planning Routine Comment: Consult to Occupational Therapy Evaluate & Treat Comment: Physician Instructions: Evaluate and treat Consult to Physical Therapy Evaluate & Treat Comment: Physician Instructions: Evaluate and Treat Discharge provider: Sterling Smith MD Summary Hospital Course Discharge Diagnosis: 1. Failure to thrive 2. Advanced Alzheimer's dementia 3. Essential tremor 4. Hypertension 5. Hyperlipidemia 6. Chronic constipation 7. Bladder spasms chronic 8. Depression Hospital Course: Patient is 79-year-old female with progressive dementia admitted to [facility] for inability to ambulate, weakness and progressive confusion. On exam noted to have hypersomnia, visual hallucinations and an intention tremor. Patient sees Dr. José Miguel Lopez for neurology and presentation was discussed with him. Dr. Lopez indicates that patient's findings are compatible with her advanced Alzheimer's dementia and the tremor is not from Parkinson's. He recommended restarting patient's donepezil as it did seem to offer her some benefit in the past. At this time patient does not have sufficient caregiver support at home and is being transfeed to [facility] living. She she has required maximal assistance and is Celia lift dependent for transfers. Status at Discharge Cognitive/behavioral status at discharge: at baseline, confused Functional status at discharge: bed bound Time Spent with Patient Time spent: Less than 30 minutes Exam Vital Signs (past 8 hours): - 11/27/19 08:00 11/27/19 10:47 11/27/19 11:18 Temperature 96.8 F L 97.5 F L Pulse Rate 67 54 L Respiratory Rate 19 19 Blood Pressure 158/76 H 158/76 H 142/78 H Pulse Oximetry 96 96 Oxygen Delivery Method Room Air Oxygen Flow Rate 0 Objective Labs Result Diagrams: 11/25/19 14:10 11/25/19 14:10 Discharge Plan Discharge Plan Patient Disposition: Assisted Living Transfer to: [facility] Transportation: Facility vehicle Consult as needed: Dental, Hearing, Mental health, Podiatry and Vision Discharge orders & Medications Discharge Orders: Discharge (Order); Ordered 11/27/19 Ordered By: Sterling Smith Prescriptions: New sennosides [senna] 8.6 mg Tablet 17.2 mg PO BEDTIME Qty: 60 RF: 0 donepezil 5 mg Tablet 5 mg PO BEDTIME Qty: 30 RF: 0 Continued sertraline 100 mg tablet 100 mg PO BEDTIME RF: 0 omeprazole 20 mg capsule,delayed release(DR/EC) 20 mg PO BID RF: 0 propranolol 60 mg capsule,extended release 24 hr 60 mg PO QAM RF: 0 phenazopyridine 100 mg Tablet 100 mg PO PRN PRN (Reason: Bladder Spasms) RF: 0 losartan 50 mg tablet 50 mg PO QAM RF: 0 atorvastatin [Lipitor] 10 MG tablet 10 mg PO BEDTIME RF: 0 tolterodine 2 mg capsule,extended release 24hr 2 mg PO QAM RF: 0 polyethylene glycol 3350 [Miralax] 17 gram Powder In Packet 17 g PO QPM PRN (Reason: Constipation) RF: 0 sennosides-docusate sodium [Senna-S] 8.6-50 mg Tablet 1 tab-cap PO BEDTIME PRN (Reason: Constipation) RF: 0 cholecalciferol (vitamin D3) [Vitamin D3] 2,000 unit Tablet 2,000 unit PO QAM RF: 0 melatonin 3 mg tablet 6 mg PO BEDTIME RF: 0 lutein-zeaxanthin 25-5 mg Capsule 1 cap PO DAILY RF: 0 Changed acetaminophen 325 mg Tablet 650 mg PO Q6H PRN (Reason: pain) Qty: 30 RF: 0 Discontinued quetiapine 25 mg tablet 12.5 mg PO DAILY Qty: 15 RF: 0 Follow up/Referrals: Chin Bales MD [Primary Care Provider] - Discharge Health Status Multidrug resistant organism: No MDRO Precautions: Lejunior Diet/Activity/Treatments Diet: Regular Liquid consistency: Normal/Thin Food texture: Regular Visit Report/Discharge Packet Visit Report Forms: Patient Portal/API, Stroke Signs & Symptoms Discharge Data Primary Care Provider: Chin Bales V Attending Provider: Homa Hein Admvero Date/Time: 11/25/19 15:54
--- NOTE | 2019-11-27 14:19 | PC.NURSE ---
is at the bedside. Discussed transfer plans to [facility]. Pt's Spouse denies further questions and will accompany Pt during transfer. Shoe braces are on Pt and she is ready for discharge.
--- NOTE | 2019-11-27 16:42 | PC.NURSE ---
1550 Pt awake, alert, up in recliner awaiting transfer to [facility] per report. Pt's spouse states has taken pt's belongings to facility and is now taking the remainder home and will stay at home. Staff from [facility] come to take pt to facility. Pt transferred by P.T. and [employer] into wheelchair. Pt left hospital in stable condition.
== END 2019-11-27 15:55 ==
LOC: ED 15:54 → AC 15:55
PROVIDERS: Admitting Provider Internal Medicine; Emergency Provider Emergency Medicine; Family Provider Internal Medicine; PCP Internal Medicine; Referring Provider Emergency Medicine; Visit Provider Internal Medicine
DX: R53.1 Weakness (principal); G30.9 Alzheimer's disease, unspecified; F02.80 Dementia in other diseases classified elsewhere, unspecified severity, without behavioral disturbance, psychotic disturbance, mood disturbance, and anxiety; I10 Essential (primary) hypertension; E78.5 Hyperlipidemia, unspecified; K59.09 Other constipation; F32.9 Major depressive disorder, single episode, unspecified; G25.2 Other specified forms of tremor; N32.89 Other specified disorders of bladder; Z11.59 Encounter for screening for other viral diseases
CPT/HCPCS: 36415; 71045; 80053; 81003; 81015; 82550; 82962; 83605; 83690; 84145; 84484; 85025; 85610; 85730; 87040; 87635; 93005; 96372; 97162; 97165; 97530; 97535; 99284; G0378; J1650